=== PATIENT | male | born 1935 | race Caucasian/White ===

== ENCOUNTER 2022-06-13 22:20 | Inpatient (IN) ==
[2022-06-13] MEDS ORDERED: SODIUM CHLORIDE 0.9% 1000ML 1,000 ML IV SCH (23:00)
[2022-06-13 23:45] LABS: Basophils # (auto) 0.03 K/uL (0-0.2); Basophils % (auto) 0.3 %; Hematocrit (blood only) 23.7 % (40.1-51.0); Hemoglobin 7.7 g/dl (14.0-18.0); Immature Granulocytes # (auto) 0.06 K/uL (0.00-0.02); Immature Granulocytes % (auto) 0.6 %; Lymphocytes # (auto) 0.93 K/uL (1.2-3.4); Lymphocytes % (auto) 9.8 %; Mean Corpuscular Hemoglobin 29.1 pg (25.0-34.0); Mean Corpuscular Hgb Conc 32.5 g/dL (32.0-36.0); Mean Corpuscular Volume 89.4 fL (80.0-100.0); Mean Platelet Volume 8.3 fL (9.4-12.4); Monocytes # (auto) 0.77 K/uL (0.24-0.82); Monocytes % (auto) 8.1 %; Neutrophils # (auto) 7.64 K/uL (1.4-6.5); Neutrophils % (auto) 80.2 %; Platelet Count 133 K/uL (130-400); RDW Coefficient of Variation 13.3 % (11.5-14.5); RDW Standard Deviation 43.2 fL (36.4-46.3); Red Blood Count 2.65 M/uL (4.63-6.08); White Blood Count 9.53 K/ul (4.8-10.8)
[2022-06-13] MEDS ORDERED: PANTOPRAZOLE BOLUS/DRIP 1 EACH IV STA (23:52)
[2022-06-13] MEDS ORDERED: PANTOprazole 80 MG in DEXTROSE 5% 100 ML IV ONE (23:52)
[2022-06-13] MEDS ORDERED: SODIUM CHLORIDE 0.9% 250 ML IV PRN (23:52)
[2022-06-14 00:03] LABS: Albumin Globulin Ratio 1.1 (0.9-2); Albumin Level 3.5 gm/dl (3.4-5.0); BUN Creatinine Ratio 30.4 (10-20); Bilirubin,Total 0.2 mg/dl (0.2-1.0); Calcium 8.6 mg/dl (8.5-10.1); Creatinine Clr Calc Pharmacy 68.4 ml/min; Est GFR (African American) 94.9 ml/min; Est GFR (Non-African American) 81.9 ml/min; Globulin 3.2 gm/dl (2.5-4.0); Magnesium 1.4 mg/dl (1.7-2.4); Potassium 3.6 mmol/L (3.5-5.1); Total Protein 6.7 gm/dl (6.0-8.3)
[2022-06-14 00:19] LABS: Thyroid Stimulating Hormone 7.099 uIu/ml (0.300-4.500)
[2022-06-14 00:45] LABS: RBC Morphology Unremarkable
[2022-06-14] MEDS: PANTOprazole 40 MG in DEXTROSE 5% 100 ML IV SCH ×5 (00:52→20:07)
[2022-06-14 01:02] LABS: T4 Free Thyroxine 0.87 ng/dl (0.61-1.60)
--- NOTE | 2022-06-14 01:18 | Emergency Department Note ---
Impression & Plan Acute GI bleeding, Symptomatic anemia, Hyponatremia ED Provider Note NAME: YAN AMEZCUA AGE: 86 SEX: M : 1935 ARRIVES VIA: Ambulance INFORMANT: Patient, ED PROVIDER(S): Raymond Mckenzie MD Chief Complaint: Weakness, dark stool HPI: Patient presents due to concern for weakness and associated dark stool with diarrhea. The patient states that he has had dark stool for the last 4 to 5 days and states that he has 1 episode of dark stool in the evening. The patient was feeling somewhat weak and fatigued last evening and woke up in the morning around 1 AM earlier this morning and called his son who recommended that he try some Pedialyte. The patient states that by 4 AM he felt quite well. Patient thought that maybe the diarrhea was secondary to eating blueberries over the last 10 days. Patient denies any fevers chills or chest pains. The patient was recently transition to supplemental nasal cannula oxygen due to history of pulmonary fibrosis. Patient does follow with Dr. Barney as well as Dr. Huitron for PCP and pulmonology respectively. The patient does take a baby aspirin but no other blood thinners. The patient does admit to his stools being dark but denies any prior history of GI bleed. The patient last had a colonoscopy 10+ years prior and has never had any other concerning issues. Patient is a full code. Patient denies any abdominal pain. Patient has had some occasional nausea but denies any vomiting. ROS: See HPI for pertinent positives and negatives. A total of 10 systems were reviewed and otherwise negative. Past medical history: See below Surgical history: See below Social history: See below Physical Exam: GENERAL: NAD, wearing a mask, non-toxic. Nasal cannula in place EYE EXAM: Normal conjunctiva. PERRL, no anisocoria and EOM's grossly intact w/o pain. NECK: Supple, no nuchal rigidity, no adenopathy, non-tender. No signs of meningismus. FROM of the neck with good chin to chest and neck extension. No stridor. LUNGS: Clear to auscultation. Normal chest wall mechanics. HEART: NSR, no MRG. ABDOMEN: Abdomen soft, non-tender, normo-active bowel sounds, no masses, no rebound or guarding. BACK: No CVA TTP. SKIN: No rashes and no bruising. UPPER EXTREMITIES: Upper extremities are grossly normal. LOWER EXTREMITIES: Grossly normal, no edema. NEURO EXAM: A&O x3, cranial nerves II-XII grossly intact, normal speech, moves all 4 extremities. Differential diagnoses: Infection, dehydration, metabolic abnormality, hypo/hyperglycemia, electrolyte disturbance, anemia, hypoxia, cardiac sources, intracerebral event, toxicologic, neurologic, as well as other pathologies. Course: Patient was seen and evaluated the bedside. Full history physical exam was performed. EKG interpreted by me Sinus with first-degree AV block, rate 62, prolonged WI, wide QRS, left axis deviation, right bundle branch block pattern. Inversions anteriorly and high lateral leads. No prior EKGs for comparison. Imaging Studies: See Below Cardiac monitoring: An order was placed for continuous cardiac monitoring. The monitor shows a rate of 65 with sinus rhythm. MDM: Patient was seen due to concern for weakness and fatigue. The patient had blood work completed. The patient has a normal white count. Hemoglobin is 7 which is an acute change as the patient's last hemoglobin May 12 was 12 and today's 7.7. Patient's platelet count is unremarkable. I did consent the patient for blood he was ordered 2 units. Patient was also ordered Protonix bolus and drip. I did convey to the findings to the patient the patient's family at bedside and they were in agreement with plan of care. The patient was noted to have hyponatremia. Patient's magnesium was slightly low at 1.4. TSH elevated but free T4 normal. Patient was consented for the 2 units. Protonix bolus and drip was also ordered given the patient's dark stool. I did speak with the hospitalist Dr. Bass and the patient was admitted to the medicine service. Patient hemodynamically stable at the time of admission. Critical Care: I have personally spent 47 minutes of critical care time in direct management of this patient. This includes bedside care, interpretation of diagnostic studies, and testing, discussion with consultants, patient, and family members, and other require inpatient management activities. This 47 minutes is in excess of all separately billable procedures. Past Med/Surg History Medical History H/O: HTN (hypertension) HLD (hyperlipidemia) Surgical History No pertinent past surgical history Social History Smoking Status: Never smoker Hx Alcohol Use: No Hx Substance Use: No Feels Safe at Home: Yes Allergies Allergies Allergy/AdvReac Type Severity Reaction Status Date / Time Iodinated Contrast Media Allergy Severe Anaphylaxis Verified 06/14/22 00:42 shrimp flavoor Allergy Severe Anaphylaxis Uncoded 06/14/22 00:42 Home Meds Home Medications Medication Instructions Recorded Confirmed ascorbic acid (vitamin C) 1,000 mg 1 g PO DAILY 06/14/22 06/14/22 tablet (Vitamin C) aspirin 81 mg tablet,delayed 81 mg PO DAILY 06/14/22 06/14/22 release atorvastatin 10 mg tablet 10 mg PO UD 06/14/22 06/14/22 dulaglutide 0.75 mg/0.5 mL 0.75 mg subcut WK 06/14/22 06/14/22 subcutaneous pen injector (Trulicity) hydrochlorothiazide 50 mg tablet 50 mg PO DAILY 06/14/22 06/14/22 losartan 100 mg tablet 100 mg PO DAILY 06/14/22 06/14/22 metformin 500 mg tablet 1,000 mg PO BIDWMEAL 06/14/22 06/14/22 Results & Data (ED) Vital Signs Vital Signs - 24 hr 06/13/22 22:44 06/13/22 23:33 Temperature 37 C Temperature Source Oral Pulse Rate 69 Respiratory Rate 12 Respiratory Depth Normal Blood Pressure 126/66 Blood Pressure Mean 86 Pulse Oximetry 95 96 Oxygen Delivery Method Nasal Cannula Room Air Sepsis Recent Fever Within 48 Hours No Sepsis New/Unexplained Change in Mental Status No Sepsis Action Taken by Nursing No Action Required Home Medications Current Medication List: was personally reviewed by me Laboratory Data Attestation: I reviewed the patient's lab results. Result diagrams: 06/13/22 23:31 06/13/22 23:31 Lab Results 06/13/22 06/13/22 06/13/22 Range/Units 23:31 23:31 23:31 WBC 9.53 (4.8-10.8) K/ul RBC 2.65 L (4.63-6.08) M/uL Hgb 7.7 L (14.0-18.0) g/dl Hct 23.7 L (40.1-51.0) % MCV 89.4 (80.0-100.0) fL MCH 29.1 (25.0-34.0) pg MCHC 32.5 (32.0-36.0) g/dL RDW Std Deviation 43.2 (36.4-46.3) fL RDW Coeff of Jose 13.3 (11.5-14.5) % Plt Count 133 (130-400) K/uL MPV 8.3 L (9.4-12.4) fL Immature Gran % (Auto) 0.6 % Neut % (Auto) 80.2 % Lymph % (Auto) 9.8 % Weld % (Auto) 8.1 % Eos % (Auto) 1.0 % Baso % (Auto) 0.3 % Neut # (Auto) 7.64 H (1.4-6.5) K/uL Lymph # (Auto) 0.93 L (1.2-3.4) K/uL Weld # (Auto) 0.77 (0.24-0.82) K/uL Eos # (Auto) 0.10 (0-0.50) K/uL Baso # (Auto) 0.03 (0-0.2) K/uL Immature Gran # (Auto) 0.06 H (0.00-0.02) K/uL RBC Morphology Unremarkable Sodium 129 L (136-145) mmol/L Potassium 3.6 (3.5-5.1) mmol/L Chloride 88 L (98-107) mmol/L Carbon Dioxide 36 H (21-32) mmol/L Anion Gap 5 (3-11) BUN 24 H (6-23) mg/dl Creatinine 0.79 (0.6-1.4) mg/dl Est Cr Clr Drug Dosing 68.4 ml/min Est GFR ( Amer) 94.9 ml/min Est GFR (Non-Af Amer) 81.9 ml/min BUN/Creatinine Ratio 30.4 H (10-20) Glucose 224 H (70-99(Fasting)) mg/dl Calcium 8.6 (8.5-10.1) mg/dl Magnesium 1.4 L (1.7-2.4) mg/dl Total Bilirubin 0.2 (0.2-1.0) mg/dl AST 17 (13-39) U/L ALT 17 (7-52) U/L Alkaline Phosphatase 41 (34-104) U/L Total Protein 6.7 (6.0-8.3) gm/dl Albumin 3.5 (3.4-5.0) gm/dl Globulin 3.2 (2.5-4.0) gm/dl Albumin/Globulin Ratio 1.1 (0.9-2) TSH 7.099 H (0.300-4.500) uIu/ml Free T4 0.87 (0.61-1.60) ng/dl Crossmatch 06/14/22 Range/Units 00:55 WBC (4.8-10.8) K/ul RBC (4.63-6.08) M/uL Hgb (14.0-18.0) g/dl Hct (40.1-51.0) % MCV (80.0-100.0) fL MCH (25.0-34.0) pg MCHC (32.0-36.0) g/dL RDW Std Deviation (36.4-46.3) fL RDW Coeff of Jose (11.5-14.5) % Plt Count (130-400) K/uL MPV (9.4-12.4) fL Immature Gran % (Auto) % Neut % (Auto) % Lymph % (Auto) % Weld % (Auto) % Eos % (Auto) % Baso % (Auto) % Neut # (Auto) (1.4-6.5) K/uL Lymph # (Auto) (1.2-3.4) K/uL Weld # (Auto) (0.24-0.82) K/uL Eos # (Auto) (0-0.50) K/uL Baso # (Auto) (0-0.2) K/uL Immature Gran # (Auto) (0.00-0.02) K/uL RBC Morphology Sodium (136-145) mmol/L Potassium (3.5-5.1) mmol/L Chloride (98-107) mmol/L Carbon Dioxide (21-32) mmol/L Anion Gap (3-11) BUN (6-23) mg/dl Creatinine (0.6-1.4) mg/dl Est Cr Clr Drug Dosing ml/min Est GFR ( Amer) ml/min Est GFR (Non-Af Amer) ml/min BUN/Creatinine Ratio (10-20) Glucose (70-99(Fasting)) mg/dl Calcium (8.5-10.1) mg/dl Magnesium (1.7-2.4) mg/dl Total Bilirubin (0.2-1.0) mg/dl AST (13-39) U/L ALT (7-52) U/L Alkaline Phosphatase (34-104) U/L Total Protein (6.0-8.3) gm/dl Albumin (3.4-5.0) gm/dl Globulin (2.5-4.0) gm/dl Albumin/Globulin Ratio (0.9-2) TSH (0.300-4.500) uIu/ml Free T4 (0.61-1.60) ng/dl Crossmatch See Detail Administered Medications Pantoprazole Sodium 40 mg/ (Dextrose) 100 mls @ 20 mls/hr IV Q5H CUBA Stop: 07/14/22 00:14 Last Admin: 06/14/22 00:52 Dose: 8 mg/hr, 20 mls/hr Documented By: MAYRA Discontinued Medications Sodium Chloride (Nss 1000ml) 1,000 mls @ 999 mls/hr IV .Q1H1M CUBA Stop: 06/14/22 00:00 Last Admin: 06/13/22 23:33 Dose: 999 mls/hr Documented By: MAYRA Pantoprazole Sodium 80 mg/ (Dextrose) 120 mls @ 400 mls/hr IV NOW ONE Stop: 06/14/22 00:09 Last Admin: 06/14/22 00:38 Dose: 400 mls/hr Documented By: MAYRA Discharge Plan Visit Data Chief Complaint: Diarrhea ED Provider: Raymond Mckenzie Discharge Problem: Acute GI bleeding, Symptomatic anemia, Hyponatremia Patient Disposition: Admitted As Inpatient Prescriptions Prescriptions: No Action metformin 500 mg Tablet 1,000 mg PO BIDWMEAL atorvastatin 10 mg Tablet 10 mg PO UD aspirin [Aspirin Low-Strength] 81 mg Tablet,Delayed Release (Dr/Ec) 81 mg PO DAILY Trulicity 0.75 mg/0.5 mL Pen Injector 0.75 mg SUBCUT WK Rx Instructions: tuesdays hydrochlorothiazide 50 mg Tablet 50 mg PO DAILY losartan 100 mg Tablet 100 mg PO DAILY ascorbic acid (vitamin C) [Vitamin C] 1,000 mg Tablet 1 g PO DAILY Referrals Referrals: Dan[facility] [Primary Care Provider] -
[2022-06-14 02:04] LABS: Appearance Urine Clear (Clear); Bacteria Urine Automated Negative (Negative); Bilirubin Urine Negative (Negative); Blood Urine Negative (Negative); Color Urine Yellow; Glucose Urine UA Trace (Negative); Ketones Urine Negative (Negative); Leukocyte Esterase Urine 1+ (Negative); Nitrite Urine Negative (Negative); Protein Urine Negative (Negative); RBC Urine Automated 0-4 /hpf (0-4); Specific Gravity Urine 1.016 (1.000-1.030); Urobilinogen Urine Negative (Negative)
[2022-06-14] MEDS ORDERED: SODIUM CHLORIDE 0.9% 250 ML IV PRN (02:39)
[2022-06-14] MEDS ORDERED: ACETAMINOPHEN 325 MG TAB PO PRN (02:39)
[2022-06-14] MEDS ORDERED: NITROGLYCERIN SL 0.4 MG/TAB TAB SL PRN (02:39)
[2022-06-14] MEDS ORDERED: DEXTROSE 50% 50 ML SYRINGE IV PRN (03:15)
[2022-06-14] MEDS ORDERED: GLUCOSE 40% GEL 15 GM TUBE PO PRN (03:15)
[2022-06-14] MEDS ORDERED: GLUCAGON FOR INJ 1 MG VIAL IM PRN (03:15)
[2022-06-14] MEDS ORDERED: GLUCOSE 10 TAB/TUBE PO PRN (03:15)
[2022-06-14] MEDS ORDERED: CARBOHYDRATES FOR HYPOGLYCEMIA PO PRN (03:15)
[2022-06-14] MEDS: SODIUM CHLORIDE 0.9% 1000ML 1,000 ML IV SCH ×3 (03:20→20:06)
[2022-06-14] MEDS ORDERED: Nursing to Pharmacy Communication SCH (04:30)
--- NOTE | 2022-06-14 05:27 | History and Physical Report ---
DATE OF ADMISSION: 06/14/2022. CHIEF COMPLAINT: Diarrhea, weakness. HISTORY OF PRESENT ILLNESS: This is an 86-year-old male with past medical history significant for hypertension, diabetes, pulmonary hypertension, interstitial pulmonary fibrosis, chronic respiratory failure, currently on 2 L oxygen, who lives at independent living, brought in by his son because the patient feeling weak and tired and having diarrhea for last 5 days and as he is not getting better. The patient says since last five days he has had significant diarrhea and one week, he is having black stools, which he thought because of blueberries which he was eating . Hemoglobin is 7.7, it was 12.5 last month. The patient was recently started on oxygen for interstitial lung disease and since then his dyspnea on exertion is much improved, cough improved. He had COVID in March of this year and since then he going down as per patient. Currently, resting comfortably, hemodynamically stable, saturating okay. Denies any headache. No blurred visions, no runny nose, has dry mouth. Has chronic cough. He has no difficulty swallowing. Appetite is not that great. Denies any chest pain, no shortness of breath, no nausea, no abdominal pain. Normal bladder movements. No swelling in the legs. ALLERGIES: IODINATED CONTRAST MEDIA, SHRIMP. PAST MEDICAL HISTORY: As mentioned above. PAST SURGICAL HISTORY: Cataract surgeries. MEDICATIONS: The patient is on ascorbic acid 1 gram p.o. daily, aspirin 81 mg p.o. daily, atorvastatin 10 mg p.o. daily, Trulicity 0.75 mg subcutaneous weekly, hydrochlorothiazide 50 mg p.o. daily, losartan 100 mg p.o. daily, metformin 1000 mg p.o. b.i.d. with meals. FAMILY HISTORY: Significant for brother has diabetes. Father has diabetes. Mother has diabetes. SOCIAL HISTORY: Currently living at [facility]. No smoking, no alcohol, no drug use history. REVIEW OF SYSTEMS: As per HPI. Rest of review of systems is negative. PHYSICAL EXAMINATION: GENERAL: The patient is alert and oriented, not in acute distress. VITAL SIGNS: Temperature 37, pulse 69, respiratory rate 19, blood pressure 126/69, oxygen 98% on room air. HEENT: Pupils equal, round and reactive to light. Oral mucosa dry. NECK: No JVD, no neck masses. CARDIOVASCULAR: S1 and S2 heard. Ejection systolic murmur in aortic area heard. Regular rate and rhythm. RESPIRATORY SYSTEM: Normal AP diameter. No accessory muscle use. No wheezing, no crackles. ABDOMEN: Soft, bowel sounds present, nontender, no distention. CENTRAL NERVOUS SYSTEM: Cranial nerves II-XII grossly intact, nonfocal. EXTREMITIES: No edema, no erythema. LABORATORY DATA: WBC 9.5, hemoglobin 7.7, hematocrit 23.7, platelets 133. Sodium 129, potassium 3.6, chloride 88, bicarbonate 36, BUN 24, creatinine 0.7, serum glucose 224, calcium 8.6, magnesium 1.4, total bilirubin 0.2, AST 17, ALT 17, alkaline phosphatase 41. TSH of 7.09, free T4 of 0.8. Urinalysis pending. Stool occult blood positive. SARS-CoV-2 rapid test pending. ASSESSMENT AND PLAN: This is an 86-year-old male who presents with diarrhea and also anemia. 1. Diarrhea, having black stools, possible melena. Hold aspirin, stool hemoccult test is positive. Hemoglobin 7.7, it was 12.5 last month. Blood consent obtained. Transfuse PRBC. Follow the repeat labs. On Protonix drip, keep him n.p.o., IV fluids. Consult GI in the a.m. 2. Hyponatremia. Sodium 129. Getting fluids. Will follow the repeat labs in the a.m. 3. Hypomagnesemia, will replace. 4. Hypertension. Holding his hydrochlorothiazide. Continue losartan. We will monitor the blood pressure. 5. Diabetes: Hold metformin, place insulin sliding scale. Follow the blood sugars, follow HbA1c levels. 6. Hyperlipidemia. Hold statin for now. 7. Interstitial lung disease, chronic respiratory failure, on 2 L oxygen. Follow up with pulmonary. 8. Deep venous thrombosis prophylaxis: Sequential compression devices. DISPOSITION: Closely monitor in the tele floor. Level 1 full code. PT, OT prior to discharge. Social service to help with discharge planning. Job ID: [id number] [facility]
[2022-06-14 07:07] LABS: Basophils # (auto) 0.02 K/uL (0-0.2); Basophils % (auto) 0.2 %; Eosinophils # (auto) 0.08 K/uL (0-0.50); Hematocrit (blood only) 24.8 % (40.1-51.0); Hemoglobin 8.4 g/dl (14.0-18.0); Immature Granulocytes # (auto) 0.04 K/uL (0.00-0.02); Immature Granulocytes % (auto) 0.5 %; Lymphocytes # (auto) 2.25 K/uL (1.2-3.4); Lymphocytes % (auto) 27.3 %; Mean Corpuscular Hemoglobin 29.5 pg (25.0-34.0); Mean Corpuscular Hgb Conc 33.9 g/dL (32.0-36.0); Mean Platelet Volume 8.1 fL (9.4-12.4); Monocytes # (auto) 0.75 K/uL (0.24-0.82); Monocytes % (auto) 9.1 %; Neutrophils # (auto) 5.11 K/uL (1.4-6.5); Neutrophils % (auto) 61.9 %; Platelet Count 128 K/uL (130-400); RDW Coefficient of Variation 13.5 % (11.5-14.5); RDW Standard Deviation 42.6 fL (36.4-46.3); Red Blood Count 2.85 M/uL (4.63-6.08); White Blood Count 8.25 K/ul (4.8-10.8)
[2022-06-14 07:33] LABS: BUN Creatinine Ratio 26.9 (10-20); Calcium 8.2 mg/dl (8.5-10.1); Creatinine Clr Calc Pharmacy 69.2 ml/min; Est GFR (African American) 95.4 ml/min; Est GFR (Non-African American) 82.3 ml/min; Magnesium 1.4 mg/dl (1.7-2.4); Potassium 3.5 mmol/L (3.5-5.1)
[2022-06-14] MEDS: LOSARTAN POTASSIUM 50 MG TAB PO SCH (08:49)
[2022-06-14] MEDS: INSULIN ASPART PER UNIT SC SCH ×4 (09:01→21:29)
[2022-06-14] MEDS: MAGNESIUM SULFATE / D5W 1 GM/100 ML BAG IV SCH ×2 (09:10→12:06)
[2022-06-14] MEDS ORDERED: bisacodyL 5 MG TABEC PO ONE (10:53)
--- NOTE | 2022-06-14 11:40 | Gastrointestinal Consultation ---
Date of Consultation June 14, 2022 Assessment & Plan (1) Symptomatic anemia: (2) Fecal occult blood test positive: Patient is an 86 years old male admitted for symptomatic anemia, diarrhea. Noted to have fecal occult blood positive. Though he denies any ish signs and symptoms of black tarry stools, rectal bleeding. Also denies any open/bleeding wounds, or hematuria. - CL diet today; NPO after midnight - Plan for EGD/Colonoscopy evaluation tomorrow by Dr. Rubio. Bowel prep ordered - Monitor blood ct and transfuse prn - Stool studies to r/o infections given diarrhea - PPI gtt - Avoid NSAIDs Supervising Physician Co-Signing Physician Notes I have personally seen and examined the patient with ROSHNI Rees. Her note reflects my exam and findings. I agree with her impression and plan. Will arrange bidirectional endoscopy. Follow H/H. Lionel Rubio M.D. History of Present Illness Reason for Consultation: Anemia, ? melena Requesting Physician: Dr. Raymundo Mae Attending Physician: Dr. Lionel Rubio History of Present Illness Pt is a 86 yo male w PMHx of hypertension, diabetes, pulmonary hypertension, interstitial pulmonary fibrosis, who presented to the ED with complaints of fatigue, weakness and diarrhea for the last 4 days. Son noticed that patient's energy level has gone down in the last few weeks. Decreased level of activity even though he previously was active and a marathon runner. He did have COVID in March of this year. Patient denies any fevers, chills, chest pain or shortness of breath. However he has noticed that the last 4 days or so his stools have been loose and darker in color which he attributed to increased intake of blueberries. He denies stools being black or tarry in appearance nor having any rectal bleeding. Upon evaluation it was noted that he has anemia, hemoglobin currently 7, it was previously 12 few months ago. He was given 2 units of PRBC transfusion overnight, with good response on blood count. No significant rise in BUN. FOBT was positive. He also denies and bleeding wounds or hematuria. He denies any current anticoagulant or NSAID use is. Takes baby aspirin daily. Denies personal or family history of GI malignancies, celiac disease or IBD. Only abdominal surgery she has had is an cholecystectomy States that he has had screening colonoscopies in the past, last one done when he was around 76 without any significant findings. Allergies Allergy/AdvReac Type Severity Reaction Status Date / Time Iodinated Contrast Media Allergy Severe Anaphylaxis Verified 06/14/22 00:42 shrimp Allergy Severe Anaphylaxis Verified 06/14/22 02:43 Home Medications Medication Instructions Recorded Confirmed Type ascorbic acid (vitamin C) 1,000 mg 1 g PO DAILY 06/14/22 06/14/22 History tablet (Vitamin C) aspirin 81 mg tablet,delayed 81 mg PO DAILY 06/14/22 06/14/22 History release atorvastatin 10 mg tablet 10 mg PO UD 06/14/22 06/14/22 History dulaglutide 0.75 mg/0.5 mL 0.75 mg subcut WK 06/14/22 06/14/22 History subcutaneous pen injector (Trulicity) hydrochlorothiazide 50 mg tablet 50 mg PO DAILY 06/14/22 06/14/22 History losartan 100 mg tablet 100 mg PO DAILY 06/14/22 06/14/22 History metformin 500 mg tablet 1,000 mg PO BIDWMEAL 06/14/22 06/14/22 History Patient History Medical History H/O: HTN (hypertension) HLD (hyperlipidemia) Surgical History No pertinent past surgical history Social History Smoking Status: Never smoker Hx Alcohol Use: No Hx Substance Use: No Preferred Language: Hungarian Communication Ability: Effective Tobacco Prizer Required: No Feels Safe at Home: Yes Safety Concerns: Feels Safe At This Time Assistive Devices: Oxygen - Continuous Review of Systems Review of Systems: All systems reviewed & are unremarkable except as noted in HPI & below Physical Exam Constitutional: WD/WN, vitals as above well groomed, cooperative and comfortable Eyes: PERRL, conjunctivae normal, anicteric sclerae ENMT: external ear and nose normal, oropharynx normal Respiratory: normal respiratory effort, lungs clear to auscultation Cardiovascular: RRR, no murmur, no edema Gastrointestinal (Abdomen): normal bowel sounds, soft, nontender, no hepatosplenomegaly Skin: no rashes, warm and dry no jaundice Psychiatric: A+Ox3, euthymic affect Lymphatic: no lymphedema Results & Data ([facility]) Vital Signs (Past 12 Hours) Vital Signs Temp Pulse Pulse Resp BP BP Pulse Ox 06/14/22 09:10 36.6 C 53 L 16 108/56 L 98 06/14/22 08:28 36.6 C 68 16 108/54 L 98 06/14/22 07:28 36.6 C 71 18 119/68 97 06/14/22 06:58 36.7 C 51 L 16 103/60 100 06/14/22 06:43 36.7 C 68 16 105/59 L 100 06/14/22 06:41 36.7 C 61 16 121/57 L 100 06/14/22 06:18 36.7 C 52 L 16 116/57 L 99 06/14/22 06:26 36.7 C 52 L 16 116/57 L 98 06/14/22 05:09 36.7 C 74 16 125/64 96 06/14/22 05:02 36.6 C 55 L 16 116/62 99 06/14/22 04:09 36.7 C 52 L 16 110/55 L 99 06/14/22 03:40 36.7 C 55 L 16 105/55 L 98 06/14/22 03:24 36.7 C 59 L 19 111/57 L 98 06/14/22 03:22 36.7 C 60 19 111/59 L 98 06/14/22 03:00 36.8 C 56 L 13 119/58 L 98 06/14/22 02:39 06/14/22 02:39 36.8 C 60 18 128/78 98 06/14/22 00:14 69 19 126/69 98 Pulse Ox O2 Del Method O2 Del Method O2 Flow Rate 06/14/22 09:10 4 06/14/22 08:28 4 06/14/22 07:28 2 06/14/22 06:58 2 06/14/22 06:43 2 06/14/22 06:41 2 06/14/22 06:18 2 06/14/22 06:26 2 06/14/22 05:09 2 06/14/22 05:02 2 06/14/22 04:09 2 06/14/22 03:40 2 06/14/22 03:24 06/14/22 03:22 06/14/22 03:00 06/14/22 02:39 98 Room Air 06/14/22 02:39 Room Air 06/14/22 00:14 Room Air
[2022-06-14] MEDS ORDERED: MAGNESIUM SULFATE 1GM / D5W BAG IV ONE (12:02)
[2022-06-14 13:04] LABS: Hematocrit (blood only) 27.9 % (40.1-51.0); Hemoglobin 9.4 g/dl (14.0-18.0)
[2022-06-14] MEDS ORDERED: POLYETHYLENE (MIRALAX) 17 GM PACK PO ONE ×2 (17:00→21:00)
--- NOTE | 2022-06-14 18:05 | Communication Note ---
Date of Service: June 14, 2022 The patient was seen and examined in emergency room. He remains hemodynamically stable without any significant symptoms. Full progress note will be done tomorrow. Dr Shandra Mae
[2022-06-14 19:08] LABS: Hemoglobin 9.2 g/dl (14.0-18.0)
[2022-06-14 19:50] LABS: Adenovirus F 40/41 PCR Not Detected (NotDetected); Astrovirus PCR Not Detected (NotDetected); Campylobacter PCR Not Detected (NotDetected); Clostridium diff Toxin A/B PCR Not Detected (NotDetected); Cryptosporidium PCR Not Detected (NotDetected); Cyclospora cayetanensis PCR Not Detected (NotDetected); Entamoeba histolytica PCR Not Detected (NotDetected); Enteroaggregative E.coli(EAEC) Not Detected (NotDetected); Enteropathogenic E.coli (EPEC) Not Detected (NotDetected); Enterotoxigenic E.coli (ETEC) Not Detected (NotDetected); Giardia lamblia PCR Not Detected (NotDetected); Norovirus GI/GII PCR Not Detected (NotDetected); Plesiomonas shigelloides PCR Not Detected (NotDetected); Rotavirus A PCR Not Detected (NotDetected); Salmonella PCR Not Detected (NotDetected); Sapovirus PCR Not Detected (NotDetected); Shiga-like Toxin E.coli (STEC) Not Detected (NotDetected); Shigella/Enteroinvasive E.coli Not Detected (NotDetected); Vibrio cholerae PCR Not Detected (NotDetected); Vibrio species PCR Not Detected (NotDetected); Yersinia enterocolitica PCR Not Detected (NotDetected)
[2022-06-15] MEDS: PANTOprazole 40 MG in DEXTROSE 5% 100 ML IV SCH ×5 (00:56→21:41)
[2022-06-15] MEDS: SODIUM CHLORIDE 0.9% 1000ML 1,000 ML IV SCH ×3 (03:36→19:52)
--- NOTE | 2022-06-15 05:54 | Electrocardiogram Report ---
Test Reason : Blood Pressure : / mmHG Vent. Rate : 062 BPM Atrial Rate : 062 BPM P-R Int : 228 ms QRS Dur : 162 ms QT Int : 446 ms P-R-T Axes : 047 002 -27 degrees QTc Int : 452 ms Sinus rhythm with 1st degree A-V block with Fusion complexes Right bundle branch block T wave abnormality, consider inferolateral ischemia Abnormal ECG No previous ECGs available Confirmed by Callum Funes ([id number]) on 06/15/2022 5:53:51 AM Referred By: REFERRED SELF Confirmed By:Callum Funes
[2022-06-15 07:48] LABS: Basophils # (auto) 0.03 K/uL (0-0.2); Basophils % (auto) 0.4 %; Eosinophils # (auto) 0.47 K/uL (0-0.50); Eosinophils % (auto) 6.6 %; Hematocrit (blood only) 28.2 % (40.1-51.0); Hemoglobin 9.1 g/dl (14.0-18.0); Immature Granulocytes # (auto) 0.03 K/uL (0.00-0.02); Immature Granulocytes % (auto) 0.4 %; Lymphocytes # (auto) 2.19 K/uL (1.2-3.4); Lymphocytes % (auto) 30.5 %; Mean Corpuscular Hemoglobin 28.5 pg (25.0-34.0); Mean Corpuscular Hgb Conc 32.3 g/dL (32.0-36.0); Mean Corpuscular Volume 88.4 fL (80.0-100.0); Mean Platelet Volume 8.2 fL (9.4-12.4); Monocytes # (auto) 0.73 K/uL (0.24-0.82); Monocytes % (auto) 10.2 %; Neutrophils # (auto) 3.72 K/uL (1.4-6.5); Neutrophils % (auto) 51.9 %; Platelet Count 131 K/uL (130-400); RDW Coefficient of Variation 14.6 % (11.5-14.5); RDW Standard Deviation 46.6 fL (36.4-46.3); Red Blood Count 3.19 M/uL (4.63-6.08); White Blood Count 7.17 K/ul (4.8-10.8)
[2022-06-15] MEDS: LOSARTAN POTASSIUM 50 MG TAB PO SCH (08:10)
[2022-06-15 08:31] LABS: BUN Creatinine Ratio 15.3 (10-20); Est GFR (African American) 98.6 ml/min; Est GFR (Non-African American) 85.1 ml/min; Potassium 3.4 mmol/L (3.5-5.1)
[2022-06-15] MEDS ORDERED: Nursing to Pharmacy Communication SCH ×2 (09:00→12:30)
--- NOTE | 2022-06-15 09:17 | Anesthesiology Consultation ---
Date of Service June 15, 2022 Assessment & Plan (1) Encounter for pre-operative examination: History Surgery Operation Date: 06/15/22 16:30 Proposed Procedures p Colonoscopy EGD Dr Ramiro Rubio MD Height/Weight Height: 5 ft 9 in Weight: 76.6 kg Allergies Allergy/AdvReac Type Severity Reaction Status Date / Time Iodinated Contrast Media Allergy Severe Anaphylaxis Verified 06/14/22 00:42 shrimp Allergy Severe Anaphylaxis Verified 06/14/22 02:43 Medications Home Medications Medication Instructions Recorded Confirmed Last Taken ascorbic acid (vitamin C) 1,000 mg 1 g PO DAILY 06/14/22 06/14/22 Unknown tablet (Vitamin C) aspirin 81 mg tablet,delayed 81 mg PO DAILY 06/14/22 06/14/22 Unknown release atorvastatin 10 mg tablet 10 mg PO UD 06/14/22 06/14/22 Unknown dulaglutide 0.75 mg/0.5 mL 0.75 mg subcut WK 06/14/22 06/14/22 Unknown subcutaneous pen injector (Trulicity) hydrochlorothiazide 50 mg tablet 50 mg PO DAILY 06/14/22 06/14/22 Unknown losartan 100 mg tablet 100 mg PO DAILY 06/14/22 06/14/22 Unknown metformin 500 mg tablet 1,000 mg PO BIDWMEAL 06/14/22 06/14/22 Unknown Active Medications Generic Name Dose Route Start Last Admin Trade Name Freq PRN Reason Stop Dose Admin Pantoprazole Sodium 40 mg/ 100 mls @ 20 mls/hr 06/14/22 00:15 06/15/22 05:38 Dextrose IV 07/14/22 00:14 8 mg/hr Q5H CUBA 20 mls/hr Administration 8 MG/HR Sodium Chloride 1,000 mls @ 125 mls/hr 06/14/22 02:39 06/15/22 03:36 Nss 1000ml IV 07/14/22 02:38 125 mls/hr .Q8H CUBA Administration Losartan Potassium 100 mg 06/14/22 09:00 06/15/22 08:10 Losartan Potassium 50 Mg Tab PO 07/14/22 08:59 Not Given DAILY CUBA Past Medical History Medical History Acute GI bleeding H/O: HTN (hypertension) HLD (hyperlipidemia) Hyponatremia Symptomatic anemia chronic respiratory failure on 2Lnc Pulmonary fibrosis Pulmonary hypertension Past Surgical History Surgical History No pertinent past surgical history Social History Smoking Status: Never smoker Hx Alcohol Use: No Hx Substance Use: No Physical Exam Vital Signs Last Vital Signs Temp 36.7 C 06/15/22 07:30 Pulse 57 L 06/15/22 07:30 Resp 18 06/15/22 07:30 BP 116/56 L 06/15/22 07:30 Pulse Ox 97 06/15/22 07:30 O2 Del Method 06/15/22 07:30 O2 Flow Rate 2 06/15/22 07:30 Testing Laboratory Results 06/15/22 07:36 06/15/22 07:36 Urine Color Yellow 06/14/22 01:50 Urine Appearance Clear (Clear) 06/14/22 01:50 Urine pH 7.0 (4.5-7.5) 06/14/22 01:50 Ur Specific [place] 1.016 (1.000-1.030) 06/14/22 01:50 Urine Protein Negative (Negative) 06/14/22 01:50 Urine Glucose (UA) Trace (Negative) H 06/14/22 01:50 Urine Ketones Negative (Negative) 06/14/22 01:50 Urine Nitrite Negative (Negative) 06/14/22 01:50 Ur Leukocyte Esterase 1+ (Negative) H 06/14/22 01:50 Urine WBC (Auto) 1-5 /hpf (0-5) 06/14/22 01:50 Urine RBC (Auto) 0-4 /hpf (0-4) 06/14/22 01:50 U Hyaline Cast (Auto) 1-5 /lpf (0-5) 06/14/22 01:50 U Epithel Cells (Auto) 5-10 /lpf (0-5) H 06/14/22 01:50 Urine Bacteria (Auto) Negative (Negative) 06/14/22 01:50 Blood Type A Positive 06/14/22 00:55 Antibody Screen NEGATIVE 06/14/22 00:55 06/14/22 21:12 POC Glucose 125 H
--- NOTE | 2022-06-15 10:04 | History & Physical Report ---
Date of Service June 15, 2022 Assessment & Plan (1) Anemia: Plan: stable for EGD/Colonoscopy Admission and Anticipated Discharge Date Admission Date: June 14, 2022 History of Present Illness Chief Complaint: anemia Primary Care Provider: [facility] Pt with anemia for EGD/Colonoscopy Allergies Allergy/AdvReac Type Severity Reaction Status Date / Time Iodinated Contrast Media Allergy Severe Anaphylaxis Verified 06/14/22 00:42 shrimp Allergy Severe Anaphylaxis Verified 06/14/22 02:43 Home Medications Medication Instructions Recorded Confirmed Type ascorbic acid (vitamin C) 1,000 mg 1 g PO DAILY 06/14/22 06/14/22 History tablet (Vitamin C) aspirin 81 mg tablet,delayed 81 mg PO DAILY 06/14/22 06/14/22 History release atorvastatin 10 mg tablet 10 mg PO UD 06/14/22 06/14/22 History dulaglutide 0.75 mg/0.5 mL 0.75 mg subcut WK 06/14/22 06/14/22 History subcutaneous pen injector (Trulicity) hydrochlorothiazide 50 mg tablet 50 mg PO DAILY 06/14/22 06/14/22 History losartan 100 mg tablet 100 mg PO DAILY 06/14/22 06/14/22 History metformin 500 mg tablet 1,000 mg PO BIDWMEAL 06/14/22 06/14/22 History Past Med/Surg History Medical History Acute GI bleeding H/O: HTN (hypertension) HLD (hyperlipidemia) Hyponatremia Symptomatic anemia Surgical History No pertinent past surgical history Social History Smoking Status: Never smoker Hx Alcohol Use: No Hx Substance Use: No Preferred Language: Salvadorean Communication Ability: Effective Associate Professor Of History Required: No Feels Safe at Home: Yes Safety Concerns: Feels Safe At This Time Assistive Devices: Oxygen - Continuous Physical Exam Constitutional: WD/WN, vitals as above Respiratory: normal respiratory effort, lungs clear to auscultation Cardiovascular: RRR, no murmur, no edema Gastrointestinal (Abdomen): normal bowel sounds, soft, nontender, no hepatosplenomegaly Results & Data ([facility]) Vital Signs (Past 12 Hours) Vital Signs Temp Pulse Pulse Resp BP Pulse Ox Pulse Ox 06/15/22 07:30 36.7 C 57 L 18 116/56 L 97 06/15/22 07:00 50 L 06/15/22 02:39 99 06/15/22 02:35 37 C 49 L 18 108/60 94 06/14/22 22:30 53 L 06/14/22 22:32 35 C L 55 L 18 113/63 97 O2 Del Method O2 Del Method O2 Flow Rate O2 Flow Rate 06/15/22 07:30 Nasal Cannula 2 06/15/22 07:00 06/15/22 02:39 Nasal Cannula 2 06/15/22 02:35 Nasal Cannula 2 06/14/22 22:30 06/14/22 22:32 Nasal Cannula 2 Code Status & VTE Plan VTE Prophylaxis Plan VTE Prophylaxis will be ordered: Yes
--- NOTE | 2022-06-15 11:42 | GI REPORT ---
Patient Name: Gaudencio Lazcano Procedure Date: 06/15/2022 10:16 AM Date of : 1935 Admit Type: Inpatient Age: 86 Gender: Male Attending MD: Lionel Rubio MD Procedure: Upper GI endoscopy Providers: Lionel Rubio MD Referring MD: Raymundo Mae Indications: Iron deficiency anemia Medicines: See the Anesthesia note for documentation of the administered medications Complications: No immediate complications. Estimated Blood Loss: Estimated blood loss: none. Procedure: Pre-Anesthesia Assessment: - Prior to the procedure, a History and Physical was performed, and patient medications, allergies and sensitivities were reviewed. The patient's tolerance of previous anesthesia was reviewed. - The risks and benefits of the procedure and the sedation options and risks were discussed with the patient. All questions were answered and informed consent was obtained. - Patient identification and proposed procedure were verified prior to the procedure by the physician and the nurse. The procedure was verified in the pre-procedure area. - Pre-procedure physical examination revealed no contraindications to sedation. - After reviewing the risks and benefits, the patient was deemed in satisfactory condition to undergo the procedure. After obtaining informed consent, the endoscope was passed under direct vision. Throughout the procedure, the patient's blood pressure, pulse, and oxygen saturations were monitored continuously. The Endoscope was introduced through the mouth, and advanced to the third part of duodenum. The upper GI endoscopy was accomplished without difficulty. The patient tolerated the procedure well. Findings: The esophagus was normal. The stomach was normal. The examined duodenum was normal. The cardia and gastric fundus were normal on retroflexion. Impression: - Normal esophagus. - Normal stomach. - Normal examined duodenum. - No specimens collected. Recommendation: - Perform a colonoscopy today. Lionel Rubio M.D. Lionel Rubio MD 06/15/2022 11:42:05 AM This report has been signed electronically. Note Initiated On: 06/15/2022 10:16 AM Number of Addenda: 0 I attest to the content of the Intraoperative Record and orders documented therein, exceptions below {[id number]}
--- NOTE | 2022-06-15 11:44 | GI REPORT ---
Patient Name: Gaudencio Lazcano Procedure Date: 06/15/2022 10:14 AM Date of : 1935 Admit Type: Inpatient Age: 86 Gender: Male Attending MD: Lionel Rubio MD Procedure: Colonoscopy Providers: Lionel Rubio MD Referring MD: Raymundo Mae Indications: Iron deficiency anemia Medicines: See the Anesthesia note for documentation of the administered medications Complications: No immediate complications. Estimated Blood Loss: Estimated blood loss: none. Procedure: Pre-Anesthesia Assessment: - See the other procedure note for documentation of the pre-procedure assessment. After I obtained informed consent, the scope was passed under direct vision. Throughout the procedure, the patient's blood pressure, pulse, and oxygen saturations were monitored continuously. The Colonoscope was introduced through the anus and advanced to the cecum, identified by appendiceal orifice and ileocecal valve. The colonoscopy was performed without difficulty. The patient tolerated the procedure well. The quality of the bowel preparation was good. Findings: Hemorrhoids were found on perianal exam. Many small-mouthed diverticula were found in the sigmoid colon. The exam was otherwise without abnormality on direct and retroflexion views. Impression: - Hemorrhoids found on perianal exam. - Diverticulosis in the sigmoid colon. - The examination was otherwise normal on direct and retroflexion views. - No specimens collected. Recommendation: - Return patient to hospital [facility] for ongoing care. Lionel Rubio M.D. Lionel Rubio MD 06/15/2022 11:43:39 AM This report has been signed electronically. Note Initiated On: 06/15/2022 10:14 AM Number of Addenda: 0 I attest to the content of the Intraoperative Record and orders documented therein, exceptions below {[id number]}
[2022-06-15] MEDS ORDERED: INSULIN ASPART PER UNIT SC SCH (12:00)
[2022-06-15] MEDS ORDERED: POTASSIUM CHLORIDE CRTAB 20 MEQ TABCR PO STA ×2 (12:10→14:44)
[2022-06-15] MEDS: INSULIN ASPART PER UNIT SC SCH ×3 (12:20→20:57)
--- NOTE | 2022-06-15 12:34 | Anesthesiology Progress Note ---
Date of Service June 15, 2022 Anesthesia Post Procedure Vital Signs Vital Signs: Temp Pulse Pulse Resp BP Pulse Ox Pulse Ox 06/15/22 11:54 36.7 C 49 L 18 129/71 95 06/15/22 11:23 52 L 16 118/57 L 97 06/15/22 11:09 54 L 16 126/71 93 06/15/22 10:54 66 12 113/62 94 06/15/22 09:59 36.8 C 59 L 18 144/69 H 98 06/15/22 07:30 36.7 C 57 L 18 116/56 L 97 06/15/22 07:00 50 L 06/15/22 02:39 99 06/15/22 02:35 37 C 49 L 18 108/60 94 06/14/22 19:37 54 L 06/14/22 22:30 53 L 06/14/22 20:00 06/14/22 22:32 35 C L 55 L 18 113/63 97 06/14/22 19:35 36.5 C 56 L 18 130/68 98 06/14/22 13:33 60 16 131/66 98 O2 Del Method O2 Del Method O2 Flow Rate O2 Flow Rate 06/15/22 11:54 Nasal Cannula 2 06/15/22 11:23 Nasal Cannula 2 06/15/22 11:09 Nasal Cannula 2 06/15/22 10:54 Nasal Cannula 2 06/15/22 09:59 Nasal Cannula 2 06/15/22 07:30 Nasal Cannula 2 06/15/22 07:00 06/15/22 02:39 Nasal Cannula 2 06/15/22 02:35 Nasal Cannula 2 06/14/22 19:37 06/14/22 22:30 06/14/22 20:00 Nasal Cannula 2 06/14/22 22:32 Nasal Cannula 2 06/14/22 19:35 Nasal Cannula 4 06/14/22 13:33 Nasal Cannula 4 Transfer of Care Handoff Completed per policy Notes Mental Status: alert / awake / arousable and participated in evaluation Patient Amnestic to Procedure: Yes Nausea / Vomiting: adequately controlled Pain: adequately controlled Airway Patency, RR, SpO2: stable & adequate BP & HR: stable & adequate Hydration State: stable & adequate Anesthetic Complications: no major complications apparent
--- NOTE | 2022-06-15 14:51 | Hospitalist Progress Note ---
Date of Service June 15, 2022 Assessment & Plan (1) Acute GI bleeding: Plan: Complains to have diarrhea with weakness and dizziness with ambulation Noted to have black tarry stool as well-heme positive Denies any abdominal pain Status post negative EGD and negative colonoscopy Minimal findings of hemorrhoid Bleeding could be from small intestine We will observe overnight and likely discharge tomorrow We will get PT and OT evaluation before discharge (2) Acute blood loss anemia: Plan: Hemoglobin dropped to 7.7 from 12 Received 2 units of blood transfusion Hemoglobin remained more than 9 following blood transfusion No acute bleeding area noted on EGD and colonoscopy Will monitor overnight and likely discharge tomorrow (3) Electrolyte imbalance: Plan: Supplemented and will monitor (4) Hypertension: Plan: Blood pressure is controlled Continue current medications (5) Interstitial lung disease: Plan: Has interstitial lung disease and is on 2 L of nasal cannula oxygen at home Recently came under [employer] system and was seen by glue sprayer Was advised to keep regular appointment with the glue sprayer Plan DVT prophylaxis SCDs CODE STATUS Full Son needs to be informed and updated prior to discharge Admission and Anticipated Discharge Date Admission Date: June 14, 2022 Subjective 06/15/2022 The patient was seen and examined in telemetry unit He denies any symptoms and the melena and diarrhea are resolved He has had EGD and colonoscopy Has been started on oral medications and diet Review of Systems Review of Systems: All systems reviewed and are unremarkable except as noted below Physical Exam Physical Exam: Lying in bed comfortably Constitutional: well developed, well nourished and average body habitus; not ill appearing Eyes: Watering from the eyes with some itchiness and some redness from rubbing. No visual symptoms ENMT: external ear and nose normal, oropharynx normal Neck: trachea midline, no thyromegaly Respiratory: no respiratory distress Auscultation: + diminished lung sounds and + crackles (Bibasilar crackles) Cardiovascular: Rate/Rhythm: regular rate, regular rhythm and + bradycardic Heart Sounds: normal S1 and normal S2; no murmur Extremities: no edema Gastrointestinal (Abdomen): Inspection/Auscultation: normal bowel sounds; abdomen not distended Percussion/Palpation: abdomen soft; abdomen nontender Musculoskeletal: No acute arthritis in any joint Neurologic: Alert, awake and oriented x3. No focal sensory or no motor deficit appreciated Lymphatic: no cervical or axillary lymphadenopathy Results & Data Results & Data ([facility]) Vital Signs (Past 12 Hours) Vital Signs Temp Pulse Pulse Resp BP Pulse Ox O2 Del Method 06/15/22 11:54 36.7 C 49 L 18 129/71 95 Nasal Cannula 06/15/22 11:23 52 L 16 118/57 L 97 Nasal Cannula 06/15/22 11:09 54 L 16 126/71 93 Nasal Cannula 06/15/22 10:54 66 12 113/62 94 Nasal Cannula 06/15/22 09:59 36.8 C 59 L 18 144/69 H 98 Nasal Cannula 06/15/22 07:30 36.7 C 57 L 18 116/56 L 97 Nasal Cannula 06/15/22 07:00 50 L O2 Flow Rate 06/15/22 11:54 2 06/15/22 11:23 2 06/15/22 11:09 2 06/15/22 10:54 2 06/15/22 09:59 2 06/15/22 07:30 2 06/15/22 07:00 Laboratory Results Short CBC 06/14/22 06/15/22 Range/Units 18:47 07:36 WBC 7.17 (4.8-10.8) K/ul Hgb 9.2 L 9.1 L (14.0-18.0) g/dl Hct 27.0 L 28.2 L (40.1-51.0) % Plt Count 131 (130-400) K/uL BMP 06/15/22 07:36 Sodium 135 L Potassium 3.4 L Chloride 100 Carbon Dioxide 33 H BUN 11 Creatinine 0.72 Glucose 126 H Calcium 8.0 L Medications Administered Current Inpatient Medications Acetaminophen (Acetaminophen 325 Mg Tab) 650 mg PO Q4H PRN PRN Reason: Pain or Fever Stop: 07/14/22 02:38 Dextrose (Dextrose 50% 50 Ml Syringe) 25 - 50 ml IV UD PRN; Protocol PRN Reason: Hypoglycemia Protocol Stop: 07/14/22 03:14 Glucagon (Glucagon For Inj 1 Mg Vial) 1 mg IM UD PRN; Protocol PRN Reason: Hypoglycemia Protocol Stop: 07/14/22 03:14 Glucose (Glucose 40% Gel 15 Gm Tube) 15 - 30 gm PO UD PRN; Protocol PRN Reason: Hypoglycemia Protocol Stop: 07/14/22 03:14 Glucose (Glucose 10 Tab/Tube) 4 - 8 tab PO UD PRN; Protocol PRN Reason: Hypoglycemia Protocol Stop: 07/14/22 03:14 Pantoprazole Sodium 40 mg/ (Dextrose) 100 mls @ 20 mls/hr IV Q5H [facility] Stop: 07/14/22 00:14 Last Admin: 06/15/22 14:20 Dose: 8 mg/hr, 20 mls/hr Sodium Chloride (Nss 1000ml) 1,000 mls @ 125 mls/hr IV .Q8H [facility] Stop: 07/14/22 02:38 Last Admin: 06/15/22 03:36 Dose: 125 mls/hr Insulin Aspart (Insulin Aspart Per Unit) 0 units SC ACHS [facility] Stop: 07/15/22 11:59 Losartan Potassium (Losartan Potassium 50 Mg Tab) 100 mg PO DAILY [facility] Stop: 07/14/22 08:59 Last Admin: 06/15/22 08:10 Dose: Not Given Miscellaneous (Carbohydrates For Hypoglycemia ) 15 - 30 gm PO UD PRN PRN Reason: Hypoglycemia Treatment Stop: 07/14/22 03:14 Nitroglycerin (Nitroglycerin Sl 0.4 Mg/Tab Tab) 0.4 mg SL Q5M PRN PRN Reason: Chest Pain Stop: 07/14/22 02:38
[2022-06-16] MEDS: PANTOprazole 40 MG in DEXTROSE 5% 100 ML IV SCH ×2 (03:22→08:33)
--- NOTE | 2022-06-16 06:49 | XRay Report ---
XR chest 1V portable HISTORY: 86 years-old Male crackles acute shortness of breath COMPARISON: None TECHNIQUE: AP view of the chest FINDINGS: Cardiac silhouette is enlarged. Reticular interstitial opacities are noted without pneumothorax or la rge pleural effusion. Pulmonary vascular congestion. Mild right hemidiaphragmatic elevation. Degenera tive changes of the shoulders and spine. IMPRESSION: 1. Cardiomegaly with pulmonary vascular congestion. 2. Peripheral predominant reticular interstitial opacities may represent fibrosis versus a nonspecifi c infectious or inflammatory pneumonitis. ACT 112: Negative or not required by law. The above report was generated using voice recognition software. It may contain grammatical, syntax o r spelling errors. Electronically signed by: Harsha Gomez M.D. 06/16/2022 6:47 AM
[2022-06-16] MEDS: INSULIN ASPART PER UNIT SC SCH ×4 (07:36→21:13)
[2022-06-16] MEDS: LOSARTAN POTASSIUM 50 MG TAB PO SCH (08:37)
[2022-06-16] MEDS ORDERED: POTASSIUM CHLORIDE CRTAB 20 MEQ TABCR PO ONE (09:01)
[2022-06-16] MEDS: hydroCHLOROthiazide 25 MG TAB PO SCH (12:06)
--- NOTE | 2022-06-16 16:51 | Hospitalist Progress Note ---
Date of Service June 16, 2022 Assessment & Plan (1) Acute GI bleeding: Plan: Likely Multifactorial: Small intestine, diverticular, hemorrhoidal S/P EGD: Normal esophagus, normal stomach, normal examination of duodenum S/P Colonoscopy:Hemorrhoids found on perianal exam, diverticulosis in sigmoid colon Aspirin Held Appreciate GI help IV Protonix changed to Protonix 40mg daily May need Further eval like capsule endoscopy as out patient Advised to follow up with GI as outpatient (2) Acute blood loss anemia: Plan: S/P 2 units PRBCs Monitor Hb (3) Electrolyte imbalance: Plan: Replete as needed (4) Hypertension: Plan: Continue current medications (5) Interstitial lung disease: Plan: H/O Interstitial lung disease and is on 2 L of nasal cannula oxygen at home Recently came under [employer] system and was seen by gyroscope repairer Follow up with gyroscope repairer as outpatient Plan DVT prophylaxis SCDs CODE STATUS Full Code Disposition SNF likely tomorrow Admission and Anticipated Discharge Date Admission Date: June 14, 2022 Subjective Patient is seen and examined at bedside States feeling tired and exhausted after having PT earlier today No recurrence of bleeding Discussed with patient's son at bedside Denies any chest pain, shortness of breath, dizziness, nausea, abdominal pain Review of Systems Review of Systems: All systems reviewed & are unremarkable except as noted in Subjective Physical Exam Physical Exam: Physical Exam: Vitals signs as noted above General Appearance:Moderately built and nourished, no apparent distress Head: normocephalic, Atraumatic Eyes: normal inspection, EOMI Neck: supple, Trachea midline Respiratory/Chest: Decreased breath sounds, B/L scattered crackles, No accessory muscle use Cardiovascular: S1, S2, No murmur Abdomen/GI:Soft, Non tender, Bowel sounds present Extremities/Musculoskeletal:normal inspection, no edema Neurologic/Psych:AAOX3, grossly no focal neurological deficits Skin: normal color, warm Results & Data Results & Data ([facility]) Vital Signs (Past 12 Hours) Vital Signs Temp Pulse Pulse Resp BP Pulse Ox O2 Del Method 06/16/22 16:35 36.8 C 57 L 18 140/73 96 Nasal Cannula 06/16/22 15:00 49 L 06/16/22 14:17 93 06/16/22 11:21 36.8 C 58 L 18 120/70 96 Nasal Cannula 06/16/22 10:46 Nasal Cannula 06/16/22 08:37 69 134/69 06/16/22 07:35 37.1 C 69 18 150/72 H 96 Nasal Cannula 06/16/22 07:00 56 L O2 Flow Rate 06/16/22 16:35 2 06/16/22 15:00 06/16/22 14:17 06/16/22 11:21 2 06/16/22 10:46 2 06/16/22 08:37 06/16/22 07:35 2 06/16/22 07:00
[2022-06-17] MEDS ORDERED: PANTOprazole 40 MG TAB PO SCH (09:00)
[2022-06-17 09:02] LABS: Hematocrit (blood only) 33.1 % (40.1-51.0); Hemoglobin 10.9 g/dl (14.0-18.0)
[2022-06-17 09:23] LABS: BUN Creatinine Ratio 12.1 (10-20); Calcium 9.3 mg/dl (8.5-10.1); Creatinine Clr Calc Pharmacy 54.6 ml/min; Est GFR (African American) 80.2 ml/min; Est GFR (Non-African American) 69.2 ml/min; Potassium 3.7 mmol/L (3.5-5.1)
[2022-06-17] MEDS: LOSARTAN POTASSIUM 50 MG TAB PO SCH (09:27)
[2022-06-17] MEDS: hydroCHLOROthiazide 25 MG TAB PO SCH (09:28)
[2022-06-17] MEDS: INSULIN ASPART PER UNIT SC SCH ×2 (10:01→12:53)
--- NOTE | 2022-06-17 12:52 | Hospitalist Progress Note ---
Date of Service June 17, 2022 Assessment & Plan (1) Acute GI bleeding: Plan: Likely Multifactorial: Small intestine, diverticular, hemorrhoidal S/P EGD: Normal esophagus, normal stomach, normal examination of duodenum S/P Colonoscopy:Hemorrhoids found on perianal exam, diverticulosis in sigmoid colon Aspirin Held Appreciate GI help IV Protonix changed to Protonix 40mg daily May need Further eval like capsule endoscopy as out patient Advised to follow up with GI as outpatient Hb 10.9 today (2) Acute blood loss anemia: Plan: S/P 2 units PRBCs Monitor Hb (3) Electrolyte imbalance: Plan: Replete as needed (4) Hypertension: Plan: Continue current medications (5) Interstitial lung disease: Plan: H/O Interstitial lung disease and is on 2 L of nasal cannula oxygen at home Recently came under [employer] system and was seen by county tax assessor Follow up with county tax assessor as outpatient Plan DVT prophylaxis SCDs CODE STATUS Full Code Disposition SNF today Admission and Anticipated Discharge Date Admission Date: June 14, 2022 Subjective Patient is seen and examined at bedside Doing well today No recurrence of bleeding Denies any chest pain, shortness of breath, dizziness, nausea, abdominal pain Plan to discharged home today Review of Systems Review of Systems: All systems reviewed & are unremarkable except as noted in Subjective Physical Exam Physical Exam: Physical Exam: Vitals signs as noted above General Appearance:Moderately built and nourished, no apparent distress Head: normocephalic, Atraumatic Eyes: normal inspection, EOMI Neck: supple, Trachea midline Respiratory/Chest: Decreased breath sounds, B/L scattered crackles, No accessory muscle use Cardiovascular: S1, S2, No murmur Abdomen/GI:Soft, Non tender, Bowel sounds present Extremities/Musculoskeletal:normal inspection, no edema Neurologic/Psych:AAOX3, grossly no focal neurological deficits Skin: normal color, warm Results & Data Results & Data ([facility]) Vital Signs (Past 12 Hours) Vital Signs Temp Pulse Pulse Resp BP Pulse Ox O2 Del Method 06/17/22 11:45 36.3 C L 69 18 122/65 95 Nasal Cannula 06/17/22 08:15 Nasal Cannula 06/17/22 10:15 73 06/17/22 07:38 36.6 C 60 20 125/72 99 Nasal Cannula 06/17/22 03:11 37 C 52 L 16 132/72 96 Nasal Cannula O2 Flow Rate 06/17/22 11:45 2 06/17/22 08:15 2 06/17/22 10:15 06/17/22 07:38 2 06/17/22 03:11 2 Laboratory Results Short CBC 06/17/22 Range/Units 08:29 Hgb 10.9 L (14.0-18.0) g/dl Hct 33.1 L (40.1-51.0) % BMP 06/17/22 08:29 Sodium 132 L Potassium 3.7 Chloride 93 L Carbon Dioxide 36 H BUN 12 Creatinine 0.99 Glucose 234 H Calcium 9.3
--- NOTE | 2022-06-17 12:59 | Discharge Summary ---
Date of Service June 17, 2022 Admission HPI Per Admitting Provider CHIEF COMPLAINT: Diarrhea, weakness. HISTORY OF PRESENT ILLNESS: This is an 86-year-old male with past medical history significant for hypertension, diabetes, pulmonary hypertension, interstitial pulmonary fibrosis, chronic respiratory failure, currently on 2 L oxygen, who lives at independent living, brought in by his son because the patient feeling weak and tired and having diarrhea for last 5 days and as he is not getting better. The patient says since last five days he has had significant diarrhea and one week, he is having black stools, which he thought because of blueberries which he was eating . Hemoglobin is 7.7, it was 12.5 last month. The patient was recently started on oxygen for interstitial lung disease and since then his dyspnea on exertion is much improved, cough improved. He had COVID in March of this year and since then he going down as per patient. Currently, resting comfortably, hemodynamically stable, saturating okay. Denies any headache. No blurred visions, no runny nose, has dry mouth. Has chronic cough. He has no difficulty swallowing. Appetite is not that great. Denies any chest pain, no shortness of breath, no nausea, no abdominal pain. Normal bladder movements. No swelling in the legs. Admission Exam Per Admitting Provider PHYSICAL EXAMINATION: GENERAL: The patient is alert and oriented, not in acute distress. VITAL SIGNS: Temperature 37, pulse 69, respiratory rate 19, blood pressure 126/69, oxygen 98% on room air. HEENT: Pupils equal, round and reactive to light. Oral mucosa dry. NECK: No JVD, no neck masses. CARDIOVASCULAR: S1 and S2 heard. Ejection systolic murmur in aortic area heard. Regular rate and rhythm. RESPIRATORY SYSTEM: Normal AP diameter. No accessory muscle use. No wheezing, no crackles. ABDOMEN: Soft, bowel sounds present, nontender, no distention. CENTRAL NERVOUS SYSTEM: Cranial nerves II-XII grossly intact, nonfocal. EXTREMITIES: No edema, no erythema. Principal Diagnosis Acute GI bleeding Acute blood loss anemia Discharge Data Allergies Allergy/AdvReac Type Severity Reaction Status Date / Time Iodinated Contrast Media Allergy Severe Anaphylaxis Verified 06/14/22 00:42 shrimp Allergy Severe Anaphylaxis Verified 06/14/22 02:43 Consultations 06/14/22 00:17 ED Decision to Admit Stat 06/14/22 08:00 Consult Gastroenterology Routine Procedures Performed Operation Date: 06/15/22 16:30 Actual Procedures s Colonoscopy - Lionel Rubio MD p Esophagogastroduodenoscopy - Lionel Rubio MD Hospital Course (1) Acute GI bleeding: Likely Multifactorial: Small intestine, diverticular, hemorrhoidal S/P EGD: Normal esophagus, normal stomach, normal examination of duodenum S/P Colonoscopy:Hemorrhoids found on perianal exam, diverticulosis in sigmoid colon Aspirin Held Appreciate GI help IV Protonix changed to Protonix 40mg daily May need Further eval like capsule endoscopy as out patient Advised to follow up with GI as outpatient Hb 10.9 today (2) Acute blood loss anemia: S/P 2 units PRBCs Monitor Hb (3) Electrolyte imbalance: Replete as needed (4) Hypertension: Continue current medications (5) Interstitial lung disease: H/O Interstitial lung disease and is on 2 L of nasal cannula oxygen at home Recently came under [facility] system and was seen by cloth examiner hand Follow up with cloth examiner hand as outpatient Plan DVT prophylaxis SCDs CODE STATUS Full Code Disposition SNF today Total Time Total Time Spent Total Time Spent (In Minutes): 45 minutes Discharge Plan Discharge Items Patient Disposition: Transfer Intermediate Fac Reason For Visit: DIARRHEA,WEAKNESS Discharge Diagnosis: Acute GI bleeding Acute blood loss anemia Activity: Per Instructions section Exercise/Sports: Gradually increase as tolerated Non-emergency contact: Primary Care Provider and Undercoat Sprayer Call non-emergency contact if: you have any medication questions, your symptoms worsen, your pain is concerning for you and you have a fever Follow-up/Referrals: Simon Riley DO [Outside Practitioners] - (Date & Time 06/21/2022 12:00 PM Provider Simon Riley DO Department Family Practice [facility] ) [facility] [Primary Care Provider] - Diet: Carb Consistent or DM2 and Heart Healthy Addtl Attending Provider Instructions: Follow-up with your primary care physician on 06/21/2022 12:00 PM Follow-up with your buildings and grounds coordinator Dr. Rubio in 4 weeks for further evaluation -- Start taking Protonix 40 mg daily --Discuss with your physician regarding Aspirin as advised Seek immediate medical attention if your symptoms reoccur or worsen Please take all medications as instructed on discharge list below. Please call if you have any questions or problems. You can reach a [facility] hospitalist on duty at [facility] 24 hours a day by calling [phone] Pending Studies at Discharge: No Stand-Alone Forms: My [facility] Skilled Items Patient informed of condition?: Yes DNR: No Discharge Level of Care: Skilled Communicable Disease: No Discharge Prognosis: Stable Lines: None Urinary Catheter: No Medications and DC Order Prescriptions: New pantoprazole 40 mg Tablet,Delayed Release (Dr/Ec) 40 mg PO QAM Qty: 40 1RF Continued metformin 500 mg Tablet 1,000 mg PO BIDWMEAL atorvastatin 10 mg Tablet 10 mg PO UD aspirin [Aspirin Low-Strength] 81 mg Tablet,Delayed Release (Dr/Ec) 81 mg PO DAILY Trulicity 0.75 mg/0.5 mL Pen Injector 0.75 mg SUBCUT WK Rx Instructions: tuesdays hydrochlorothiazide 50 mg Tablet 50 mg PO DAILY losartan 100 mg Tablet 100 mg PO DAILY ascorbic acid (vitamin C) [Vitamin C] 1,000 mg Tablet 1 g PO DAILY Discharge Orders: Discharge Order (Routine); Ordered 06/17/22 Ordered By: Samson Warren Admission Data Admit Date/Time: 06/14/22 01:49 Attending Provider: Samson Warren Admit Provider: Ruben Bass Primary Care Provider: [facility] Other Providers: Ruben Bass ; Fransisco Blandon ; Amara Gilliland ; Melissa Estevez ; Deepa Andre ; Ellis Bermudez ; Abad Rivera ; Nguyễn Gonzalez ; Lionel Rubio ; Celsa Davila ; Diana Quintana ; Jhoana Pimentel ; Arabella Lang ; Payam Grant
== END 2022-06-17 14:22 | DRG 378 ==
LOC: ED 22:20 → EDINP 06-14 01:49 → SUATTDRO 06-14 01:49 → 2S 06-14 02:14
DX: J96.10 Chronic respiratory failure, unspecified whether with hypoxia or hypercapnia; E87.1 Hypo-osmolality and hyponatremia; Z79.84 Long term (current) use of oral hypoglycemic drugs; D62 Acute posthemorrhagic anemia; J84.10 Pulmonary fibrosis, unspecified; K64.9 Unspecified hemorrhoids; I27.20 Pulmonary hypertension, unspecified; I10 Essential (primary) hypertension; Z91.041 Radiographic dye allergy status; K57.11 Diverticulosis of small intestine without perforation or abscess with bleeding; Z79.82 Long term (current) use of aspirin; I44.0 Atrioventricular block, first degree; E83.42 Hypomagnesemia; Z99.81 Dependence on supplemental oxygen; R19.7 Diarrhea, unspecified; K57.30 Diverticulosis of large intestine without perforation or abscess without bleeding; E78.5 Hyperlipidemia, unspecified; J84.9 Interstitial pulmonary disease, unspecified

== ENCOUNTER 2024-12-05 11:28 | Inpatient (IN) ==
--- NOTE | 2024-12-05 11:57 | Emergency Department Note ---
Impression & Plan Pneumonia, Anemia, Weakness, Thrombocytopenia ED Provider Note NAME: YAN AMEZCUA AGE: 88 SEX: M : 1935 ARRIVES VIA: Ambulance INFORMANT: Patient ED PROVIDER(S): Kelvin Ross DO CHIEF COMPLAINT: Weakness HPI: Patient is an 88-year-old male who presents ER for weakness. He has had a gradual decline over the past 3 months per son. He denies any headache or change in vision. No chest pain but admits to a cough without change. No dysuria urgency or frequency. No belly pain. No nausea vomiting or diarrhea. No dysuria urgency or frequency. Son notes that he cannot walk as he is super weak. He is chronically on 4 L nasal cannula. ADDITIONAL HISTORY OBTAINED: Per HPI Chronic Medical/Social Conditions Affecting Care: Per HPI PAST MEDICAL HISTORY:See Below PAST SURGICAL HISTORY:See Below FAMILY HISTORY:See Below SOCIAL HISTORY:See Below HOME MEDICATIONS:See Below ALLERGIES:See Below VITALS:See Below PHYSICAL EXAMINATION: GENERAL: Sitting up in bed, alert, well appearing, well nourished, no distress, non-toxic EYE EXAM: normal conjunctiva. OROPHARYNX: mucous membranes are moist LUNGS: Clear to auscultation. Normal chest wall mechanics HEART: no murmurs, S1 normal and S2 normal ABDOMEN: abdomen soft, non-tender, normo-active bowel sounds, no masses, no rebound or guarding. BACK: Back is symmetrical on inspection and there is no deformity, no midline tenderness, no CVA tenderness. SKIN: no rashes and no bruising UPPER EXTREMITIES: upper extremities are grossly normal. LOWER EXTREMITIES: No pitting edema. NEURO EXAM: Normal sensorium, cranial nerves II-XII grossly intact, normal speech, no gross weakness of arms, no gross weakness of legs. MEDICAL DECISION MAKING: Patient is an 88-year-old male who presents ER for the below stated complaint. IV was established and blood work was obtained. Labs show no significant leukocytosis. Mild anemia 11.2. Platelets were slightly low at 112. BMP with mild hyponatremia at 130. LFTs and bilirubin is unremarkable. Lipase is normal. Viral panel was positive for influenza. Chest x-ray showed multiple areas of infiltrates. Patient was given IV cefepime. He was updated bedside. He was given steroids and neb treatment. Case was discussed with the hospitalist for further evaluation management and treatment. Consults/Care Managements Discussions: Per MDM Triage Nursing notes reviewed. Limited review of prior medical records performed Vital Signs: reviewed and remarkable for no significant abnormalities Differential diagnosis: Differential diagnoses includes but is not limited to pneumonia, bronchitis, COPD/Asthma exacerbation, pneumothorax, pulmonary embolism, congestive heart failure, acute coronary syndrome ER treatment provided: See below Diagnostics interpreted by me include EKG and cardiac monitoring as listed below: -Cardiac Monitoring: An order was placed for continuous cardiac monitoring. The monitor shows a rate of 80 with sinus rhythm. -ECG: Sinus rhythm rate 87 First-degree AV block Right bundle branch block T wave inversions in V1 through V6 ST depressions in V2 through V6 QTc 459 No significant change from previous -Laboratory studies:Interpreted by me as stated above in MDM and shown below. Imaging studies: Xrays: As interpreted by me: Portable AP upright 1 view of the chest shows multiple infiltrates CTs show: none Procedures:none Critical Care: None Past Med/Surg History Problem List (Updated 12/05/24 @ 14:32 by Kelvin Ross DO) Thrombocytopenia (Acute) Weakness (Acute) Pneumonia (Acute) Acute lower GI bleeding (Acute) Anemia (Acute) Interstitial lung disease Hypertension Electrolyte imbalance Acute blood loss anemia Acute GI bleeding Anemia Encounter for pre-operative examination Fecal occult blood test positive Medical History Hyponatremia Symptomatic anemia H/O: HTN (hypertension) HLD (hyperlipidemia) Surgical History No pertinent past surgical history Social History Smoking Status: Never smoker Hx Alcohol Use: No Hx Substance Use: No Preferred Language: Georgian Communication Ability: Effective Forging Roll Operator Required: No Beliefs That Will Affect Care: None Current Living Situation: Alone Feels Safe at Home: Yes Assistive Devices: Cane and Oxygen - Continuous Allergies Allergies Allergy/AdvReac Type Severity Reaction Status Date / Time Iodinated Contrast Media Allergy Severe Anaphylaxis Verified 08/03/23 23:12 shrimp Allergy Severe Anaphylaxis Verified 08/03/23 23:12 Home Meds Home Medications Medication Instructions Recorded Confirmed Vivex Supplement 2 tab PO QAM 08/03/23 12/05/24 acetaminophen 325 mg tablet 650 mg PO Q8 PRN Pain 08/03/23 12/05/24 (Tylenol) albuterol sulfate 2.5 mg/3 mL 2.5 mg inhalation Q6H PRN 08/03/23 12/05/24 (0.083 %) solution for nebulization Shortness Of Breath Or Wheezing albuterol sulfate 90 mcg/actuation 2 puff inhalation Q6 PRN .SOB, 08/03/23 12/05/24 aerosol inhaler COUGH, WHEEZE ascorbic acid (vitamin C) 1,000 mg 500 g PO BID 08/03/23 12/05/24 tablet (Vitamin C) atorvastatin 10 mg tablet 10 mg PO HS 08/03/23 12/05/24 azelastine 137 mcg (0.1 %) nasal 1 spray intranasal AMHS 08/03/23 12/05/24 spray dulaglutide 0.75 mg/0.5 mL 0.75 mg subcut .Q TUES 08/03/23 12/05/24 subcutaneous pen injector (Trulicity) fluticasone propionate 110 2 puff inhalation QAM 08/03/23 12/05/24 mcg/actuation HFA aerosol inhaler (Flovent HFA) fluticasone propionate 50 2 spray intranasal DAILY 08/03/23 12/05/24 mcg/actuation nasal spray,suspension food supplemt, lactose-reduced 1 ea PO DAILY 08/03/23 12/05/24 hydrochlorothiazide 50 mg tablet 50 mg PO DAILY 08/03/23 12/05/24 levocetirizine 5 mg tablet 5 mg PO DAILY 08/03/23 12/05/24 losartan 100 mg tablet 100 mg PO QAM 08/03/23 12/05/24 metformin 500 mg tablet 1,000 mg PO BID 08/03/23 12/05/24 tamsulosin 0.4 mg capsule 0.4 mg PO DAILY 08/03/23 12/05/24 ferrous sulfate 325 mg (65 mg 325 mg PO BID 12/05/24 12/05/24 iron) tablet ipratropium bromide 21 mcg (0.03 2 spray intranasal BID PRN 12/05/24 12/05/24 %) nasal spray allergic rhinit omeprazole 20 mg tablet,delayed 20 mg PO DAILY 12/05/24 12/05/24 release Results & Data (ED) Vital Signs Vital Signs - 24 hr 12/05/24 11:34 12/05/24 11:34 12/05/24 12:27 Pulse Rate 90 73 Pulse Rate [Finger] Respiratory Rate 16 Respiratory Effort / Characteristics Non-Labored Spontaneous Respiratory Depth Normal Blood Pressure 124/84 Blood Pressure [Right Arm] Blood Pressure Mean 97 Blood Pressure Mean [Right Arm] Blood Pressure Position Sitting Pulse Oximetry 85 L 86 L Oxygen Delivery Method Nasal Cannula Nasal Cannula Oxygen Flow Rate 4 Sepsis Recent Fever Within 48 Hours No Sepsis New/Unexplained Change in Mental Status N/A Sepsis Action Taken by Nursing No Action Required Oxygen Flow Rate - Titration 6 Pulse Oximetry Post Tiitration 97 12/05/24 12:30 12/05/24 12:54 12/05/24 13:30 Pulse Rate 78 77 Pulse Rate [Finger] 76 Respiratory Rate 20 20 21 Respiratory Effort / Characteristics Non-Labored Spontaneous Respiratory Depth Normal Blood Pressure 107/67 119/76 Blood Pressure [Right Arm] 107/67 Blood Pressure Mean 74 90 Blood Pressure Mean [Right Arm] 80 Blood Pressure Position Pulse Oximetry 95 94 95 Oxygen Delivery Method Nasal Cannula Nasal Cannula Nasal Cannula Oxygen Flow Rate 4 4 4 Sepsis Recent Fever Within 48 Hours Sepsis New/Unexplained Change in Mental Status Sepsis Action Taken by Nursing Oxygen Flow Rate - Titration Pulse Oximetry Post Tiitration Laboratory Data 12/05/24 11:40 12/05/24 11:40 Lab Results 12/05/24 12/05/24 Range/Units 11:40 12:57 WBC 7.30 (4.8-10.8) K/ul RBC 3.82 L (4.70-6.10) M/uL Hgb 11.2 L (14.0-18.0) g/dl Hct 34.0 L (42.0-52.0) % MCV 89.0 (80.0-100.0) fL MCH 29.3 (25.0-34.0) pg MCHC 32.9 (32.0-36.0) g/dL RDW Std Deviation 49.1 H (36.4-46.3) fL RDW Coeff of Jose 15.0 H (11.5-14.5) % Plt Count 112 L (130-400) K/uL MPV 9.3 L (9.4-12.4) fL Immature Gran % (Auto) 0.5 % Neut % (Auto) 60.1 % Lymph % (Auto) 30.0 % [place] % (Auto) 7.0 % Eos % (Auto) 2.1 % Baso % (Auto) 0.3 % Neut # (Auto) 4.39 (1.40-6.50) K/uL Lymph # (Auto) 2.19 (1.20-3.40) K/uL [place] # (Auto) 0.51 (0.11-0.59) K/uL Eos # (Auto) 0.15 (0.00-0.50) K/uL Baso # (Auto) 0.02 (0.00-0.20) K/uL Immature Gran # (Auto) 0.04 (0.01-0.20) K/uL Sodium 130 L (136-145) mmol/L Potassium 4.5 (3.5-5.1) mmol/L Chloride 85 L (98-107) mmol/L Carbon Dioxide 39 H (21-32) mmol/L Anion Gap 6 (3-11) BUN 25 H (6-23) mg/dl Creatinine 0.91 (0.6-1.4) mg/dl Est Cr Clr Drug Dosing 53.4 ml/min eGFR 81.57 BUN/Creatinine Ratio 27.5 H (10-20) Glucose 120 H (70-99(Fasting)) mg/dl Calcium 9.2 (8.6-10.3) mg/dl Total Bilirubin 0.7 (0.2-1.0) mg/dl AST 15 (13-39) U/L ALT 9 (7-52) U/L Alkaline Phosphatase 65 (34-104) U/L Total Protein 7.2 (6.0-8.3) gm/dl Albumin 3.7 (3.4-5.0) gm/dl Globulin 3.5 (2.5-4.0) gm/dl Albumin/Globulin Ratio 1.1 (0.9-2) Lipase 40 (11-82) U/L Procalcitonin Cancelled Adenovirus (PCR) Not Detected (NotDetected) B. pertussis DNA (PCR) Not Detected (NotDetected) B.parapertussis DNA PCR Not Detected (NotDetected) C. pneumoniae DNA (PCR) Not Detected (NotDetected) Coronavirus OC43 (PCR) Not Detected (NotDetected) Coronavirus HKU1 (PCR) Not Detected (NotDetected) Coronavirus 229E (PCR) Not Detected (NotDetected) SARS-CoV-2 (PCR) Not Detected (NotDetected) Coronavirus NL63 (PCR) Not Detected (NotDetected) Human Metapneumovir PCR Not Detected (NotDetected) Influenza A (H3) PCR DETECTED A (NotDetected) Influenza Type B (PCR) Not Detected (NotDetected) M. pneumoniae (PCR) Not Detected (NotDetected) Parainfluenza 1 (PCR) Not Detected (NotDetected) Parainfluenza 2 (PCR) Not Detected (NotDetected) Parainfluenza 3 (PCR) Not Detected (NotDetected) Parainfluenza 4 (PCR) Not Detected (NotDetected) RSV (PCR) Not Detected (NotDetected) Entero/Rhino (PCR) Not Detected (NotDetected) Administered Medications Discontinued Medications Albuterol (Albut/Ipratrop 3mg/0.5mg Neb 3 Ml Vial) 3 ml NEB NOW STA; Protocol Stop: 12/05/24 12:42 Last Admin: 12/05/24 12:48 Dose: 3 ml Documented By: RAMONA Cefepime HCl (Maxipime 2000mg) 2,000 mg in 20 mls @ 5 mls/min IV NOW STA; Protocol Stop: 12/05/24 12:43 Last Admin: 12/05/24 12:48 Dose: 5 mls/min Documented By: RAMONA Sodium Chloride (Nss) 500 mls @ 999 mls/hr IV .Q31M ONE Stop: 12/05/24 13:11 Last Infusion: 12/05/24 13:31 Dose: Infused Documented By: Admin: 12/05/24 12:53 Dose: 999 mls/hr Documented By: RAMONA Methylprednisolone (Methylprednisolone 125 Mg/2 Ml Vial) 60 mg IV NOW STA Stop: 12/05/24 12:41 Last Admin: 12/05/24 12:48 Dose: 60 mg Documented By: RAMONA Imaging Data Radiologist's Impression: Chest X-Ray 12/05/24 11:54 XR chest 1V portable CLINICAL HISTORY: cough COMPARISON STUDY: 08/03/2023 FINDINGS: There is stable cardiomegaly without pulmonary vascular congestion. There is increased diffuse interstitial infiltrate patchy opacity. No lobar consolidation or pleural effusion. No pneumothorax. IMPRESSION: Increased pulmonary opacities likely represent acute pneumonia superimposed on chronic lung disease. ACT 112: Negative or not required by law. Electronically signed by: Kaiser Munroe M.D. 12/05/2024 12:29 PM Discharge Plan Visit Data Chief Complaint: Weakness Stated Complaint: WEAKNESS ED Provider: Kelvin Ross Discharge Problem: Pneumonia, Anemia, Weakness, Thrombocytopenia Forms Stand Alone Forms: My [facility] Prescriptions Prescriptions: No Action metformin 500 mg tablet 1,000 mg PO BID ascorbic acid (vitamin C) [Vitamin C] 1,000 mg Tablet 500 g PO BID acetaminophen [Tylenol] 325 mg Tablet 650 mg PO Q8 PRN (Reason: Pain) albuterol sulfate 2.5 mg /3 mL (0.083 %) Solution For Nebulization 2.5 mg INHALATION Q6H PRN (Reason: Shortness Of Breath Or Wheezing) atorvastatin 10 mg tablet 10 mg PO HS hydrochlorothiazide 50 mg tablet 50 mg PO DAILY tamsulosin 0.4 mg capsule 0.4 mg PO DAILY azelastine 137 mcg (0.1 %) aerosol,spray 1 spray INTRANASAL AMHS albuterol sulfate 90 mcg/actuation HFA aerosol inhaler 2 puff INHALATION Q6 PRN (Reason: .SOB, COUGH, WHEEZE) losartan 100 mg tablet 100 mg PO QAM fluticasone propionate 50 mcg/actuation spray,suspension 2 spray INTRANASAL DAILY fluticasone propionate [Flovent HFA] 110 mcg/actuation HFA aerosol inhaler 2 puff INHALATION QAM food supplemt, lactose-reduced Liquid 1 ea PO DAILY levocetirizine 5 mg tablet 5 mg PO DAILY Trulicity 0.75 mg/0.5 mL pen injector 0.75 mg SUBCUT .Q TUES Vivex Supplement 2 tab PO QAM Rx Instructions: Liquid gels omeprazole 20 mg Tablet,Delayed Release (Dr/Ec) 20 mg PO DAILY ferrous sulfate 325 mg (65 mg iron) Tablet 325 mg PO BID ipratropium bromide 21 mcg (0.03 %) [place],Non-Aerosol 2 spray INTRANASAL BID PRN (Reason: allergic rhinit) Rx Instructions: administer into each nostril Referrals Referrals: Dominguez El[facility] [Primary Care Provider] - Discharge Problem: Pneumonia Qualifiers: Pneumonia type: due to unspecified organism Laterality: unspecified laterality Lung location: unspecified part of lung Qualified Code(s): J18.9 - Pneumonia, unspecified organism Anemia Qualifiers: Anemia type: unspecified type Qualified Code(s): D64.9 - Anemia, unspecified
[2024-12-05 12:12] LABS: Basophils # (auto) 0.02 K/uL (0.00-0.20); Basophils % (auto) 0.3 %; Eosinophils # (auto) 0.15 K/uL (0.00-0.50); Eosinophils % (auto) 2.1 %; Hemoglobin 11.2 g/dl (14.0-18.0); Immature Granulocytes # (auto) 0.04 K/uL (0.01-0.20); Immature Granulocytes % (auto) 0.5 %; Lymphocytes # (auto) 2.19 K/uL (1.20-3.40); Mean Corpuscular Hemoglobin 29.3 pg (25.0-34.0); Mean Corpuscular Hgb Conc 32.9 g/dL (32.0-36.0); Mean Platelet Volume 9.3 fL (9.4-12.4); Monocytes # (auto) 0.51 K/uL (0.11-0.59); Neutrophils # (auto) 4.39 K/uL (1.40-6.50); Neutrophils % (auto) 60.1 %; Platelet Count 112 K/uL (130-400); RDW Standard Deviation 49.1 fL (36.4-46.3); Red Blood Count 3.82 M/uL (4.70-6.10)
[2024-12-05 12:29] LABS: Albumin Globulin Ratio 1.1 (0.9-2); Albumin Level 3.7 gm/dl (3.4-5.0); BUN Creatinine Ratio 27.5 (10-20); Bilirubin,Total 0.7 mg/dl (0.2-1.0); Calcium 9.2 mg/dl (8.6-10.3); Creatinine Clr Calc Pharmacy 53.4 ml/min; Globulin 3.5 gm/dl (2.5-4.0); Potassium 4.5 mmol/L (3.5-5.1); Total Protein 7.2 gm/dl (6.0-8.3)
--- NOTE | 2024-12-05 12:30 | XRay Report ---
XR chest 1V portable CLINICAL HISTORY: cough COMPARISON STUDY: 08/03/2023 FINDINGS: There is stable cardiomegaly without pulmonary vascular congestion. There is increased diff use interstitial infiltrate patchy opacity. No lobar consolidation or pleural effusion. No pneumothor ax. IMPRESSION: Increased pulmonary opacities likely represent acute pneumonia superimposed on chronic l steffanie disease. ACT 112: Negative or not required by law. Electronically signed by: Kaiser Munroe M.D. 12/05/2024 12:29 PM
[2024-12-05] MEDS: CEFEPIME 2000MG 2,000 MG/20 ML SYR IV STA (12:48)
[2024-12-05] MEDS: methylPREDNISolone 125 MG/2 ML VIAL IV STA (12:48)
[2024-12-05] MEDS: ALBUT/IPRATROP 3MG/0.5MG NEB 3 ML VIAL NEB STA ×2 (12:48→23:51)
[2024-12-05] MEDS: SODIUM CHLORIDE 0.9% 500 ML IV ONE (12:53)
[2024-12-05 14:05] LABS: Adenovirus PCR Not Detected (NotDetected); Bordetella parapertussis PCR Not Detected (NotDetected); Bordetella pertussis PCR Not Detected (NotDetected); Chlamydia pneumoniae PCR Not Detected (NotDetected); Coronavirus 229E PCR Not Detected (NotDetected); Coronavirus CoV-2 (COVID19)PCR Not Detected (NotDetected); Coronavirus HKU1 PCR Not Detected (NotDetected); Coronavirus NL63 PCR Not Detected (NotDetected); Coronavirus OC43PCR Not Detected (NotDetected); Human Metapneumovirus PCR Not Detected (NotDetected); Influenza A (H3) PCR DETECTED (NotDetected); Influenza B PCR Not Detected (NotDetected); Mycoplasma pneumoniae PCR Not Detected (NotDetected); Parainfluenza Virus 1 PCR Not Detected (NotDetected); Parainfluenza Virus 2 PCR Not Detected (NotDetected); Parainfluenza Virus 3 PCR Not Detected (NotDetected); Parainfluenza Virus 4 PCR Not Detected (NotDetected); Respiratory Syncytial VirusPCR Not Detected (NotDetected); Rhinovirus/Enterovirus PCR Not Detected (NotDetected)
--- NOTE | 2024-12-05 14:17 | History & Physical Report ---
Date of Service December 05, 2024 Assessment & Plan (1) Generalized weakness: (2) Influenza A: (3) Interstitial lung disease: (4) Chronic respiratory failure with hypoxia: (5) Pneumonia: (6) Thrombocytopenia: (7) Hyponatremia: Plan This is a 88-year-old male who has a significant past medical history of interstitial lung disease, chronic respiratory failure with hypoxia on 4 L of oxygen at rest and 5 with exertion, T2DM, HTN, HLD, chronic hyponatremia, BPH, osteoarthritis who presents to ED secondary to generalized weakness and decline over a few months. #Generalized weakness #Influenza A #Chronic Hypoxic resp failure on 4L at rest/5L with exertion #ILD - follows Dr. Morales #Pneumonia admit to med tele pt with a gradual decline over the last 2-3 months per Son 6 Months ago he was driving and ambulating w/o much assistance, now he is mostly confined to a wheel chair, Son concerned underlying condition resulting in the progressive decline Will Start Jovita flu for influenza Obtain CT Chest to better evaluate PNA in setting of ILD will hold off on steroids as no wheezing Duoneb TID, pulmonary toilet with flutter, ISP IV rocephin and oral azithromycin ordered Keep oxygen saturation around 90% given ILD #Acute thrombocytopenia #lower extremity Petechial Rash rash present for 2 weeks obtain peripheral smear, B12 ? if related to underlying illness, follow plt closely #Chronic Hyponatremia Na 130 today, appears to be chronically hyponatremic since 2021 on HCTZ 50mg daily, recommend d/c at discharge will give 500ml IVF x 1 bag follow a.m. labs, may be contributing to generalized weakness #Weight Loss pt with 8kg weight loss since 08/2023 suspect related to chronic disease state poor appetite consult lot porter #Poor Sleep hygiene ends up sleeping during the day b/c he is up all night will schedule melatonin, could consider remeron as it may help with appetite too #HTN chronic, stable, continue losartan STOP HCTZ, monitor BP #T2DM hold metformin, trulicity a1c in a.m., ISS per protocol #ECG Change pt denies CP, ecg compared to 2022, increase in T wave inversion update echo, last was 2022 #Stage I sacral pressure ulcer turn/position, daily dressing change, wound care DVT ppx: none 2/2 to low plts and lower ext petechiae FULL CODE PCP: Tien as well as a Dr Torres at [facility] Dispo: admit to med tele, PT/OT consulted Pt was seen and examined in collaboration with Dr. West, please see addendum I spent a total of 77 minutes coordinating, documenting and providing care for this patient excluding time spent in the performance of separately billed services or time spent by another provider/QHP. History of Present Illness Chief Complaint: generalized weakness and decline over a few months. Primary Care Provider: [facility] This is a 88-year-old male who has a significant past medical history of interstitial lung disease, chronic respiratory failure with hypoxia on 4 L of oxygen at rest and 5 with exertion, T2DM, HTN, HLD, chronic hyponatremia, BPH, osteoarthritis who presents to ED secondary to generalized weakness and decline over a few months. History is provided by patient, son Blake at bedside as well as external chart review. Patient is currently in an assisted living facility and has been there for the last 9 months. Son reports up until 6 months ago patient was out driving. He reports over the last 2 months he has went from ambulatory to mostly only transferring to a wheelchair. Previously he was walking up to their dining area and currently he is requiring to be wheeled. He also feels he is, "wasting a way." Patient reports if the temperature is under 50 degrees he cannot go outside due to his lung condition. He reports chronic shortness of breath with even minimal exertion, but this is unchanged. He has a chronic productive cough with cardoso sputum. He has new red dots on his legs that have been present for the last 2 weeks. He denies any itching or pain with them. He does report swelling to his ankles when this rash started, but that has since subsided. He denies any fever, chills, sweats, lightheadedness, dizziness, chest pain, hemoptysis, nausea, vomiting, abdominal pain. Overall his appetite is diminished. He also reports poor sleep hygiene at night. 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 He understands the phase of life. He understands that he has less time here than previous. He denies overall being depressed as he feels he has a good understanding on how life works and understands his current phase of life. In ED patient was hemodynamically stable. He was saturating normal on 4 to 5 L of oxygen. Lab work notable for a sodium of 130, BUN 25, platelet count of 112. Chest x-ray concerning for pneumonia. His influenza A was positive. Allergies Allergy/AdvReac Type Severity Reaction Status Date / Time Iodinated Contrast Media Allergy Severe Anaphylaxis Verified 08/03/23 23:12 shrimp Allergy Severe Anaphylaxis Verified 08/03/23 23:12 Home Medications Medication Instructions Recorded Confirmed Type Vivex Supplement 2 tab PO QAM 08/03/23 12/05/24 History acetaminophen 325 mg tablet 650 mg PO Q8 PRN Pain 08/03/23 12/05/24 History (Tylenol) albuterol sulfate 2.5 mg/3 mL 2.5 mg inhalation Q6H PRN 08/03/23 12/05/24 History (0.083 %) solution for nebulization Shortness Of Breath Or Wheezing albuterol sulfate 90 mcg/actuation 2 puff inhalation Q6 PRN .SOB, 08/03/23 12/05/24 History aerosol inhaler COUGH, WHEEZE ascorbic acid (vitamin C) 1,000 mg 500 g PO BID 08/03/23 12/05/24 History tablet (Vitamin C) atorvastatin 10 mg tablet 10 mg PO HS 08/03/23 12/05/24 History azelastine 137 mcg (0.1 %) nasal 1 spray intranasal AMHS 08/03/23 12/05/24 History spray dulaglutide 0.75 mg/0.5 mL 0.75 mg subcut .Q TUES 08/03/23 12/05/24 History subcutaneous pen injector (Trulicity) fluticasone propionate 110 2 puff inhalation QAM 08/03/23 12/05/24 History mcg/actuation HFA aerosol inhaler (Flovent HFA) fluticasone propionate 50 2 spray intranasal DAILY 08/03/23 12/05/24 History mcg/actuation nasal spray,suspension food supplemt, lactose-reduced 1 ea PO DAILY 08/03/23 12/05/24 History hydrochlorothiazide 50 mg tablet 50 mg PO DAILY 08/03/23 12/05/24 History levocetirizine 5 mg tablet 5 mg PO DAILY 08/03/23 12/05/24 History losartan 100 mg tablet 100 mg PO QAM 08/03/23 12/05/24 History metformin 500 mg tablet 1,000 mg PO BID 08/03/23 12/05/24 History tamsulosin 0.4 mg capsule 0.4 mg PO DAILY 08/03/23 12/05/24 History ferrous sulfate 325 mg (65 mg 325 mg PO BID 12/05/24 12/05/24 History iron) tablet ipratropium bromide 21 mcg (0.03 2 spray intranasal BID PRN 12/05/24 12/05/24 History %) nasal spray allergic rhinit omeprazole 20 mg tablet,delayed 20 mg PO DAILY 12/05/24 12/05/24 History release Past Med/Surg History Problem List (Updated 12/05/24 @ 14:33 by Priti Eduardo PA-C) Chronic respiratory failure with hypoxia Influenza A Generalized weakness Thrombocytopenia (Acute) Weakness (Acute) Pneumonia (Acute) Acute lower GI bleeding (Acute) Anemia (Acute) Interstitial lung disease Hypertension Electrolyte imbalance Acute blood loss anemia Acute GI bleeding Anemia Encounter for pre-operative examination Fecal occult blood test positive Medical History Hyponatremia Symptomatic anemia H/O: HTN (hypertension) HLD (hyperlipidemia) Surgical History No pertinent past surgical history Social History Smoking Status: Never smoker Hx Alcohol Use: No Hx Substance Use: No Preferred Language: Upper Sorbian Communication Ability: Effective Director Of Therapy Services Required: No Beliefs That Will Affect Care: None Current Living Situation: Alone Feels Safe at Home: Yes Assistive Devices: Cane and Oxygen - Continuous Review of Systems Review of Systems: All systems reviewed & are unremarkable except as noted in HPI & below Physical Exam Physical Exam: Constitutional: Elderly, Cachectic M vitals as above, NAD, sitting up in bed, pleasant, conversing easily but tachypneic with conversation Head: Normocephalic, Atraumatic Eyes: PERRL, conjunctivae normal, anicteric sclerae ENMT: external ear and nose normal, oropharynx normal dry membranes Neck: trachea midline, no thyromegaly normal visual inspection Respiratory: normal respiratory effort, lungs clear to auscultation, no wheeze, rales, rhonchi. Normal insp/exp effort, no accessory muscle use Cardiovascular: RRR, no edema Vessels: no JVD or carotid bruit Chest: normal inspection of chest Abdomen: normal bowel sounds, soft, nontender, no hepatosplenomegaly Musculoskeletal: no cyanosis or clubbing, extremities motor strength 5/5 Skin: B/l below the knee petechial rash b/l, warm and dry normal turgor , + b/l sacral erythema, R gluteal wound 3mm Neurologic: PERRL, EOMI, accommodation nl, no face palsy, no dysarthria CN's II-XI intact bilaterally and moves all extremities Psychiatric: A+Ox3, euthymic affect Lymphatic: no cervical or axillary lymphadenopathy : deferred Results & Data Results & Data Vital Signs (Past 12 Hours) Vital Signs Pulse Pulse Resp BP BP Pulse Ox O2 Del Method 12/05/24 13:30 77 21 119/76 95 Nasal Cannula 12/05/24 12:54 76 20 107/67 94 Nasal Cannula 12/05/24 12:30 78 20 107/67 95 Nasal Cannula 12/05/24 12:27 73 12/05/24 11:34 86 L Nasal Cannula 12/05/24 11:34 90 16 124/84 85 L Nasal Cannula O2 Flow Rate 12/05/24 13:30 4 12/05/24 12:54 4 12/05/24 12:30 4 12/05/24 12:27 12/05/24 11:34 4 12/05/24 11:34 Laboratory Results I have independently reviewed and interpreted patient's admitting labs including CBC, CMP, lipase, resp biofire Diagnostic Findings Chest X-Ray 12/05/24 11:54 XR chest 1V portable CLINICAL HISTORY: cough COMPARISON STUDY: 08/03/2023 FINDINGS: There is stable cardiomegaly without pulmonary vascular congestion. There is increased diffuse interstitial infiltrate patchy opacity. No lobar consolidation or pleural effusion. No pneumothorax. IMPRESSION: Increased pulmonary opacities likely represent acute pneumonia superimposed on chronic lung disease. ACT 112: Negative or not required by law. Electronically signed by: Kaiser Munroe M.D. 12/05/2024 12:29 PM Medications Administered Medication List Discontinued Medications Albuterol (Albut/Ipratrop 3mg/0.5mg Neb 3 Ml Vial) 3 ml NEB NOW STA; Protocol Stop: 12/05/24 12:42 Last Admin: 12/05/24 12:48 Dose: 3 ml Documented By: RAMONA Cefepime HCl (Maxipime 2000mg) 2,000 mg in 20 mls @ 5 mls/min IV NOW STA; Protocol Stop: 12/05/24 12:43 Last Admin: 12/05/24 12:48 Dose: 5 mls/min Documented By: RAMONA Sodium Chloride (Nss) 500 mls @ 999 mls/hr IV .Q31M ONE Stop: 12/05/24 13:11 Last Infusion: 12/05/24 13:31 Dose: Infused Documented By: Admin: 12/05/24 12:53 Dose: 999 mls/hr Documented By: RAMONA Methylprednisolone (Methylprednisolone 125 Mg/2 Ml Vial) 60 mg IV NOW STA Stop: 12/05/24 12:41 Last Admin: 12/05/24 12:48 Dose: 60 mg Documented By: RAMONA ECG Additional Comments: I have independently reviewed and interpreted patient's admitting EKG which revealed: SR 1st degree AVB, RBBB, T wave inversion inferolateral leads, some ncrease in T wave inversion from previous but not drastically different Code Status & VTE Plan Code Status FULL CODE VTE Prophylaxis Plan VTE Prophylaxis will be ordered: Yes Supervising Physician Co-Signing Physician Notes Patient is a 88-year-old male with past medical history of interstitial lung disease (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 Her son reports decline in his function, weight for last several months. On physical examination Constitutional: Alert oriented x 3; in mild respiratory distress. Respiratory: Bilateral coarse crackles present in lower lung field Cardiovascular: RRR, no murmur, no edema Vessels: no JVD or carotid bruit Chest: normal inspection of chest Abdomen: normal bowel sounds, soft, nontender, no hepatosplenomegaly Musculoskeletal: Blanching redness present on lower back just above the buttocks. No open wounds. Neurologic: PERRL, EOMI, accommodation nl, no face palsy, no dysarthria CN's II- XI intact bilaterally and moves all extremities Psychiatric: A+Ox3, euthymic affect Assessment/plan Influenza A; start Tamiflu; plan to treat for 5 days Hyponatremia; stop hydrochlorothiazide indefinitively. Will start alternative agent if blood pressure is elevated. IV fluids with NS. Possible pneumonia; plan to treat with ceftriaxone, azithromycin. Generalized weakness, weight loss; going on for several months. There is a poss ibility of progression of interstitial lung disease; discussed with patient's son. Plan is to obtain CT chest without contrast; set up close follow-up with pulmonology as outpatient at discharge so that further treatment options are discussed. Will obtain vitamin B12 level, TSH Thrombocytopenia; obtain vitamin B12 level, obtain peripheral blood smear Stage I pressure ulcer, POA; change position every 2 hours I have reviewed the advanced practitioner's documentation, and I agree with, and take responsibility for the plan of care I spent a total of 40 minutes coordinating, documenting, and providing care for this patient excluding time spent in the performance of separately billed services. All of the aforementioned completed while collaborating with the assigned advanced practitioner for a full treatment plan (5) Pneumonia Laterality: unspecified laterality Lung location: unspecified part of lung Pneumonia type: due to unspecified organism Qualified Code(s): J18.9 - Pneumonia, unspecified organism
--- NOTE | 2024-12-05 15:30 | CT Scan Report ---
CT chest diagnostic wo con CT DOSE: 245.48 mGy.cm CLINICAL HISTORY: worsening SOB, PNA. TECHNIQUE: Multiaxial CT images of the chest were performed without contrast. A dose lowering techni que was utilized adhering to the principles of ALARA. Sagittal and coronal reconstructions were done. COMPARISON STUDY: Chest radiograph dated 12/05/2024, 08/03/2023, and 06/15/2022 FINDINGS: There is pronounced interstitial pulmonary fibrosis with honeycombing. The central pulmonar y arteries are quite pronounced suggesting pulmonary arterial hypertension. There is no definite evid ence of a superimposed pneumonia. There is no pleural effusion. The upper airway is grossly negative other than traction bronchiectasis associated with the fibrosis. There is no aortic aneurysm. There is moderate coronary artery calcification. There is a trace perica rdial effusion. There is no significant adenopathy. The upper abdominal images are noncontributory. IMPRESSION: Interstitial pulmonary fibrosis with probable pulmonary arterial hypertension. No definit e evidence of pneumonia. ACT 112: Negative or not required by law. Electronically signed by: Mary Jo Rudolhp M.D. 12/05/2024 3:28 PM
[2024-12-05] MEDS: OSELTAMIVIR PHOSPHATE 75 MG CAP PO STA (15:51)
[2024-12-05] MEDS: SODIUM CHLORIDE 0.9% 500 ML IV SCH (15:51)
[2024-12-05] MEDS ORDERED: CARBOHYDRATES FOR HYPOGLYCEMIA PO PRN (17:40)
[2024-12-05] MEDS ORDERED: GLUCOSE 10 TAB/TUBE PO PRN (17:40)
[2024-12-05] MEDS ORDERED: DEXTROSE 50% 50 ML SYRINGE IV PRN (17:40)
[2024-12-05] MEDS ORDERED: FAMOTIDINE 20 MG TAB PO PRN (17:40)
[2024-12-05] MEDS ORDERED: GLUCOSE 40% GEL 15 GM TUBE PO PRN (17:40)
[2024-12-05] MEDS ORDERED: POLYETHYLENE (MIRALAX) 17 GM PACK PO PRN (17:40)
[2024-12-05] MEDS ORDERED: ACETAMINOPHEN 325 MG TAB PO PRN (17:40)
[2024-12-05] MEDS ORDERED: GLUCAGON FOR INJ 1 MG VIAL SQ PRN (17:40)
[2024-12-05] MEDS ORDERED: ONDANSETRON INJ 2 MG/ML 2 ML VIAL IV PRN (17:40)
--- OUTSIDE RECORDS SUMMARY | 2024-12-05 17:49 | External Medical Summary | Summary of Care ---
Author Name Unknown Organization [facility] Address [address] [place] [address] Phone [phone] Care Team Providers Care Bike Assembler Name Role Phone Samuel Chauhan MD Primary Care Provider [phone] Reason for Referral * Evaluate & Treat - Unlimited Visits (Within 10 days (routine)) - Authorized Specialty Diagnoses / Procedures Referred By Nenita rosas Referred To Contact Physical Therapy / Physical Medicine And Rehab Diagnoses Ambulatory dysfunction Freda Curtis CRNP [address] [place] [address] Phone: tel: fax: Referral ID Status Reason Start Date Expiration Date Visits Requested Visits Authorized [id number] Authorized Specialty Services Required [phone] Question Answer Referral Priority Within 10 days (routine) Where should this appointment be scheduled? External Encounter Details Date Type Department Care Team (Late st Contact Info) Description 10/18/2024 Telephone Family Practice [facility] [address] [place] [address] Freda Curtis CRNP [address] [place] [address] Allergies Active Allergy Reactions Criticality Noted Date Comments Iodinated Contrast Media Anaphylaxis High 02/10/2021 Shrimp Flavor Agent (Non-Screening) Anaphylaxis High 02/10/2021 documented as of this encounter (statuses as of 11/25/2024) Medications oxygen IN GAS 2L during the day and 3L at night 1 Each 04/07/20 Active Spacer/Aero-Holding Chambers DeviceIndications:I LD (interstitial lung disease) ([facility]),Chronic respiratory failure with hypoxia ([facility]) Use with inhaler. 1 Each 04/13/20 Active guaiFENesin-Codeine 100-10 MG/5ML Oral Syrup (Robitussin AC)Indications:Team Leader clovis respiratory failure with hypoxia ([facility]) Take 5 mL by mouth every 4 hours as needed for Cough. 120 mL 04/13/20 Active Glucosamine 500 MG Oral CapsuleIndications: Primary osteoarthritis of hips, bilateral Take 1 Capsule by mouth in the morning and 1 Capsule before bedtime. 60 Capsule 06/26/20 Active Boost/Benefiber Oral LiquidIndications:H ealthcare maintenance Take 1 Box Dosing Unit by mouth in the morning and 1 Box Dosing Unit in the evening. Hold if having diarrhea. 7110 mL 07/24/20 Active OneTouch Verio In Vitro Strip (Glucose Blood)Indications:T ype 2 diabetes mellitus without complication, without long-term current use of insulin ([facility]) Use up to 3 times a day and as needed. 100 Strip 3 07/24/20 Active Acetaminophen 500 MG Oral Tablet (Tylenol)Indication s:Lumbar degenerative disc disease,Primary osteoarthritis of hips, bilateral Take 2 Tablets by mouth in the morning and 2 Tablets at noon and 2 Tablets before bedtime. 100 Tablet 07/24/20 Active Albuterol Sulfate HFA 108 (90 Base) MCG/ACT Inhalation Aerosol SolutionIndications :ILD (interstitial lung disease) ([facility]) Inhale 2 Puffs by mouth every 6 hours as needed for Cough, Shortness of Breath or Wheezing. 54 g 1 10/23/20 Active Ferrous Sulfate 325 (65 Fe) MG Oral Tablet (Feosol)Indications :Iron deficiency anemia Take 1 Tablet by mouth in the morning and 1 Tablet before bedtime. 10 Tablet 10/31/20 23 Active Fluticasone Propionate HFA 110 MCG/ACT Inhalation Aerosol (Flovent HFA)Indications:Chr onic respiratory failure with hypoxia (HCC) INHALE 2 PUFFS BY MOUTH EVERY DAY 12 g 11 01/30/20 24 Active Ferrous Sulfate 325 (65 Fe) MG Oral Tablet (Feosol) Take 1 Tablet by mouth in the morning and 1 Tablet before bedtime. 60 Tablet 11 01/30/20 24 Active Atorvastatin Calcium 10 MG Oral Tablet (Lipitor)Indication s:Dyslipidemia Take 1 Tablet by mouth in the morning. 5 Tablet 01/30/20 24 Active hydroCHLOROthiazide 25 MG Oral Tablet (Hydrodiuril)Indica tions:HTN, goal below 130/80 Take 2 Tablets by mouth in the morning. 10 Tablet 01/30/20 24 Active Levocetirizine Dihydrochloride 5 MG Oral TabletIndications:S easonal allergic rhinitis due to pollen TAKE ONE TAB BY MOUTH DAILY FOR ALLERGIES 5 Tablet 01/30/20 24 Active Losartan Potassium 100 MG Oral Tablet (Cozaar)Indications :HTN, goal below 130/80 Take 1 Tablet by mouth in the morning. 5 Tablet 01/30/20 24 Active metFORMIN HCl 1000 MG Oral Tablet (Glucophage)Indicat ions:Type 2 diabetes mellitus with hemoglobin A1c goal of less than 8.0% ([facility]) Take 1 Tablet by mouth 2 times a day with morning and evening meals. 10 Tablet 01/30/20 24 Active Tamsulosin HCl 0.4 MG Oral Capsule (Flomax)Indications :BPH with obstruction/lower urinary tract symptoms Take 1 Capsule by mouth in the morning. 5 Capsule 01/30/20 24 Active Vitamin C 1000 MG Oral TabletIndications:H ealthcare maintenance Take 1 Tablet by mouth in the morning. 30 Tablet 11 01/30/20 24 Active Trulicity 0.75 MG/0.5ML Subcutaneous Solution Pen-injector (Dulaglutide)Indica tions:Type 2 diabetes mellitus without complication, without long-term current use of insulin (HCC) INJECT 0.75MG UNDER THE SKIN ONE TIME PER WEEK 9 mL 1 04/08/20 24 Active Ipratropium [place] 0.03 % Nasal Solution (Atrovent) Administer 2 Sprays into each nostril 2 times a day as needed for Rhinitis. 30 mL 12 04/26/20 24 Active Vitamin C 500 MG Oral Tablet Chewable Take 2 Tablets by mouth in the morning. 90 Tablet 3 06/19/20 24 Active oxygen IN GASIndications:Supp lemental oxygen dependent 3 L/min during the day & 4 L/min at bedtime 1 Each 06/25/20 24 Active Saline [place] 0.65 % Nasal Solution ([place]) Administer 1 [place] into nostril as needed for Congestion. 30 mL 12 09/09/20 24 Active Azelastine HCl 137 MCG/SPRAY Nasal SolutionIndications :Seasonal allergic rhinitis due to pollen INSTILL 1 SPRAY INTO EACH NOSTRIL EVERY MORNING AND AT BEDTIME FOR ALLERGIES *MAY SELF ADMINISTER AND KEEP IN ROOM* 30 mL 11 09/09/20 24 Active Fluticasone Propionate 50 MCG/ACT Nasal Suspension (Flonase)Indication s:Seasonal allergic rhinitis due to pollen INSTILL 2 SPRAYS INTO EACH NOSTRIL EVERY DAY FOR ALLERGIES *MAY SELF ADMINISTER AND KEEP IN ROOM* 16 g 11 09/09/20 24 Active Vitamin C (Calcium Ascorbate) Oral Solution ReconstitutedIndica tions:ILD (interstitial lung disease) ([facility]) Take 500 mg by mouth every evening. 480 g 1 10/02/20 24 Active Triamcinolone Acetonide 55 MCG/ACT Nasal Aerosol (Nasacort Allergy 24HR) Administer 2 Sprays into nostril in the morning and 2 Sprays before bedtime. 16.9 mL 6 10/04/20 24 Active Omeprazole 20 MG Oral Capsule Delayed Release (PriLOSEC)Indicatio ns:Dysphagia, unspecified type Take 1 Capsule by mouth in the morning. 1 hour before the first meal of the day. 30 Capsule 5 10/11/20 24 Active documented as of this encounter (statuses as of 11/25/2024) Active Problems Problem Noted Date Diagnosed Date Supplemental oxygen dependent 09/25/2023 Sick sinus syndrome 08/10/2023 Lumbar degenerative disc disease 03/14/2023 Type 2 diabetes mellitus wit h hemoglobin A1c goal of less than 8.0% 02/02/2023 1st degree AV block 02/02/2023 HTN, goal below 130/80 11/22/2022 Dyslipidemia 11/22/2022 Primary osteoarthritis of hips, bilateral 2022 BPH with obstruction/lower urinary tract symptom s 11/22/2022 Chronic respiratory failure with hypoxia 023 PHT (pulmonary hypertension) 11/08/2022 ILD (interstitial lung disease) 11/08/2022 documented as of this encounter (statuses as of 11/25/2024) Resolved Problems Problem Noted Date Diagnosed Date Resolved Date PAC (premature atrial contraction) 02/02/2023 08/10/2023 RBBB 02/02/2023 08/10/2023 Type 2 diabetes mellitus wit hout complication, without long-term current use of insulin 11/22/2022 08/10/2023 Spondylosis of lumbar region without myelopathy or radiculopathy 11/22/2022 03/14/2023 SOB (shortness of breath) 11/08/2022 documented as of this encounter (statuses as of 11/25/2024) Immunizations Name Administration Dates Next Due COVID-19 mRNA, LNP-s, No Pre serve, 2-Dose Series (Moderna) 01/07/2021,12/10/2020 COVID-19, mRNA, LNP-s, PF, B ooster, 100mcg/0.5mg (Moderna) 04/20/2022,09/10/2021 Pneumococcal Conjugate Vaccine, 20-valent (Prevn ar20) 04/13/2023 Seasonal Influenza, High Dos e, Trivalent, PF, IM (Fluzone HD) 09/09/2024 Seasonal Influenza, Quadrivalent Hd (Fluzone Hd) 07/23/2022 documented as of this encounter Social History Tobacco Use Types Packs/Day Years Used Date Smoking Tobacco: Never Smokeless Tobacco: Never Alcohol Use Standard Drinks/Week Comments Never 0 (1 standard drink = 0.6 oz pur e alcohol) PHQ-2 Answer Date Recorded PHQ Adult Total Score 0 04/13/2023 Hunger Vital Sign Answer Date Recorded Within the past 12 months, y ou worried that your food would run out before you got the money to buy more. Never true 03/14/20 23 Within the past 12 months, t he food you bought just didn't last and you didn't have money to get more. Never true 03/14/2023 Sex and Gender Information Value Date Recorded Sex Assigned at Male 11/20/2022 12:54 PM EST Legal Sex Male 10:34 AM EDT Gender Identity Male 11/20/2022 12:54 PM EST Sexual Orientation Straight 11/20/2022 12 :54 PM EST documented as of this encounter Miscellaneous Notes * Telephone Encounter - Krupa Dominguez LPN - 10/23/2024 1:24 PM EST Attempted to call patient, there was no answer, left voicemail. When patient returns call, ok for NICHOLE to relay message, please refer to below documentation. If needed, can transfer to dedicated nurse line. * Telephone Encounter - Freda Curtis CRNP - 10/22/2024 4:02 PM EST Signed Also placed recheck labs in 4-6 weeks to see if any improvement in sodium. Please have them notify office if he does not seem to improve with the fluid restriction and PT * Telephone Encounter - Vanessa Suárez LPN - 10/21/2024 3:48 PM EST Called and spoke with Blake, son. Asking for PT order for ROM and to get father "up and moving" Agreeable to fluid restriction trial but will need order sent to Freda at [facility]. Please advise on PT, if agreeable * Telephone Encounter - Freda Curtis CRNP - 10/18/2024 1:59 PM EST Labs show low sodium which can cause some weakness/ muscle fatigue. No signs of worsening anemia. He could trial a fluid restriction of no more than 1000mL (30-40 ounces) of water/fluid per day andsee if this helps at all. documented in this encounter Plan of Treatment Upcoming Encounters Date Type Department Care Team (Late st Contact Info) Description 12/24/2024 9:20 AM EST Office Visit Family Practice [facility] [address] [place] [address] Samuel Chauhan MD [address] [place] [address] 03/07/2025 10:00 AM EDT Imaging Radiology [facility] [address] [id number] 03/10/2025 10:00 AM EDT Office Visit Pulmonary Medicine, [facility] [address] [place] [address] Yannick Morales MD [address] [place] [address] Scheduled Orders Name Type Priority Associated Diagnoses Orde r Schedule BASIC METABOLIC PANEL Lab Routine Hyponatremia Expected: 10/22/2024 (Approximate), Expires: 10/22/2025 Scheduled Referrals Name Type Priority Associated Diagnoses Orde r Schedule PHYSICAL THERAPY REFERRAL OP Referral Within 10 days (routine) Ambulatory dysfunction Ordered: 10/22/2024 Health Maintenance Due Date Last Done Comments DTap/Tdap Vaccines (1 - Tdap) 1954 Zoster Vaccines (1 of 2) 1986 Adult Wellness Visit 2002 Albumin/Creatinine Ratio 11/22/2023 11/22/2022 Depression Screening 04/13/2024 04/13/2023 Diabetic Foot Exam 04/13/2024 04/13/2023 HbA1c 04/23/2024 10/23/2023, 11/22/2022 COVID-19 Vaccine ( season) 2024 08/14/2023, 04/20/2022, 09/10/2021, Additional history exists Diabetic Eye Exam 07/24/2024 07/24/2023, , 07/24/2023, Additional history exists Pneumococcal Vaccine: 50+ Years Completed 04/13/2023, 08/03/2016 Influenza Vaccine (FLU shot) Completed 02/2024, 07/06/2023, 07/23/2022, Additional history exists HPV (Gardasil) Vaccine Aged Out No lo nger eligible based on patient's age to complete this topic Hepatitis B Vaccine Aged Out No longe r eligible based on patient's age to complete this topic MENINGOCOCCAL (MENACTRA/MENVEO) Aged Out No longer eligible based on patient's age to complete this topic documented as of this encounter Medical Devices Implanted Type Area Building Services Supervisor Device Identifier Shelf Expiration Date Model / Serial / Lot Lens Intraoc 14.0 - [id number] - [id number] Implanted:Qty: 1 on 02/18/2021 by Kevan Rocha MD at OR [facility] Right: Eye [employer] 09/05/2025 [id number] / [id number] / [id number] documented as of this encounter Visit Diagnoses Diagnosis Hyponatremia- Primary Hyposmolality and/or hyponatremia Ambulatory dysfunction documented in this encounter Advance Directives Documents on File Type Date Recorded Patient Machine Grainer Expl anation POLST 05/29/2022 [facility] FOR LIFE-SUSTAINING TREATMENT Advance Directives and Living Will 08/17/2018 ADVANCE DIRECTIVE / LIVING WILL Power of Track Greaser 08/17/2018 POWER OF A TTORNEY Power of Track Greaser 08/17/2018 FINANCIAL POWER OF DOCUMENT MANAGER Care Teams Bike Assembler Relationship Specialty Start Date End Date Samuel Chauhan MD [address] [place] [address] PCP - General Family Medicine 08/28/23 documented as of this encounter
--- OUTSIDE RECORDS SUMMARY | 2024-12-05 17:49 | External Medical Summary | Summary of Care ---
Author Name Unknown Organization [facility] Address [address] [facility] [place] [address] Phone [phone] Care Team Providers Care Mixer Machine Feeder Name Role Phone Samuel Chauhan MD Primary Care Provider [phone] Encounter Details Date Type Department Care Team (Late st Contact Info) Description 11/28/2024 Population Health External Data Unspecified Department Allergies Active Allergy Reactions Criticality Noted Date Comments Iodinated Contrast Media Anaphylaxis High 02/10/2021 Shrimp Flavor Agent (Non-Screening) Anaphylaxis High 02/10/2021 documented as of this encounter (statuses as of 11/28/2024) Medications oxygen IN GAS 2L during the day and 3L at night 1 Each 04/07/20 23 Active Spacer/Aero-Holding Chambers DeviceIndications:I LD (interstitial lung disease) (HCC),Chronic respiratory failure with hypoxia (HCC) Use with inhaler. 1 Each 04/13/20 23 Active guaiFENesin-Codeine 100-10 MG/5ML Oral Syrup (Robitussin AC)Indications:Residential Program Worker clovis respiratory failure with hypoxia (HCC) Take 5 mL by mouth every 4 hours as needed for Cough. 120 mL 04/13/20 23 Active Glucosamine 500 MG Oral CapsuleIndications: Primary osteoarthritis of hips, bilateral Take 1 Capsule by mouth in the morning and 1 Capsule before bedtime. 60 Capsule 11 06/26/20 23 Active Boost/Benefiber Oral LiquidIndications:H ealthcare maintenance Take 1 Box Dosing Unit by mouth in the morning and 1 Box Dosing Unit in the evening. Hold if having diarrhea. 7110 mL 11 07/24/20 Active OneTouch Verio In Vitro Strip (Glucose Blood)Indications:T ype 2 diabetes mellitus without complication, without long-term current use of insulin (HCC) Use up to 3 times a day and as needed. 100 Strip 3 07/24/20 Active Acetaminophen 500 MG Oral Tablet (Tylenol)Indication s:Lumbar degenerative disc disease,Primary osteoarthritis of hips, bilateral Take 2 Tablets by mouth in the morning and 2 Tablets at noon and 2 Tablets before bedtime. 100 Tablet 07/24/20 23 Active Albuterol Sulfate HFA 108 (90 Base) MCG/ACT Inhalation Aerosol SolutionIndications :ILD (interstitial lung disease) ([facility]) Inhale 2 Puffs by mouth every 6 hours as needed for Cough, Shortness of Breath or Wheezing. 54 g 1 10/23/20 23 Active Ferrous Sulfate 325 (65 Fe) MG Oral Tablet (Feosol)Indications :Iron deficiency anemia Take 1 Tablet by mouth in the morning and 1 Tablet before bedtime. 10 Tablet 10/31/20 23 Active Fluticasone Propionate HFA 110 MCG/ACT Inhalation Aerosol (Flovent HFA)Indications:Chr onic respiratory failure with hypoxia ([facility]) INHALE 2 PUFFS BY MOUTH EVERY DAY 12 g 11 01/30/20 24 Active Ferrous Sulfate 325 (65 Fe) MG Oral Tablet (Feosol) Take 1 Tablet by mouth in the morning and 1 Tablet before bedtime. 60 Tablet 01/30/20 24 Active Atorvastatin Calcium 10 MG [...] hemoglobin A1c goal of less than 8.0% ([facility]) Take 1 Tablet by mouth 2 times [...] complication, without long-term current use of insulin ([facility]) INJECT 0.75MG UNDER THE SKIN ONE TIME PER WEEK 9 mL 1 04/08/20 24 Active Ipratropium [place] 0.03 % Nasal Solution (Atrovent) Administer 2 [...] bedtime 1 Each 06/25/20 24 Active Saline [place] 0.65 % Nasal Solution ([facility]) Administer 1 [place] into nostril as needed for Congestion. 30 [...] Oral Solution ReconstitutedIndica tions:ILD (interstitial lung disease) ([facility]) Take 500 mg by mouth every evening. [...] as of this encounter (statuses as of 11/28/2024) Active Problems Problem Noted Date Diagnosed Date [...] as of this encounter (statuses as of 11/28/2024) Resolved Problems Problem Noted Date Diagnosed Date Resolved Date PAC (premature atrial contraction) 02/02/2023 08/10/2023 RBBB 02/02/2023 08/10/2023 Type 2 diabetes mellitus wit hout complication, without long-term current use of insulin 11/22/2022 08/10/2023 Spondylosis of lumbar region without myelopathy or radiculopathy 11/22/2022 03/14/2023 SOB (shortness of breath) 11/08/2022 documented as of this encounter (statuses as of 11/28/2024) Immunizations Name Administration Dates Next Due COVID-19 [...] PM EST documented as of this encounter Plan of Treatment Upcoming Encounters Date Type Department Care Team (Late st Contact Info) Description 12/24/2024 9:20 AM EST Office Visit Family Practice [facility] [address] [place] [address] Samuel Chauhan MD [address] [place] [address] 03/07/2025 10:00 AM EDT Imaging Radiology [facility] [address] [place] [phone] 03/10/2025 10:00 AM EDT Office Visit Pulmonary Medicine, [facility] [address] [place] [address] Yannick Morales MD [address] [place] [address] Health Maintenance Due Date Last Done Comments [...] this encounter Medical Devices Implanted Type Area Manager Digital Device Identifier Shelf Expiration Date Model / Serial / Lot Lens Intraoc 14.0 - [id number] - [id number] Implanted:Qty: 1 on 02/18/2021 by Kevan Rocha MD at OR [facility] Right: Eye [employer] 09/05/2025 [id number] / [id number] / [id number] documented as of this encounter Advance Directives Documents on File Type Date Recorded Patient Senior Benefits Analyst Expl anation POLST 05/29/2022 [facility] FOR LIFE-SUSTAINING TREATMENT Advance Directives and Living Will 08/17/2018 ADVANCE DIRECTIVE / LIVING WILL Power of Director Product Safety 08/17/2018 POWER OF A TTORNEY Power of Director Product Safety 08/17/2018 FINANCIAL POWER OF KEY HOLDER Care Teams Mixer Machine Feeder Relationship Specialty Start Date End Date Samuel Chauhan MD [address] [place] [address] PCP - General Family Medicine 08/28/23 documented as of this encounter
--- OUTSIDE RECORDS SUMMARY | 2024-12-05 17:49 | External Medical Summary | Summary of Care ---
Author Name Unknown Organization [facility] Address [address] [place] [address] Phone [phone] Care Team Providers Care Educational Adviser Name Role Phone Samuel Chauhan MD Primary Care Provider [phone] Reason for Visit * Reason Onset Date Comments Fax 10/25/2024 Encounter Details Date Type Department Care Team (Late st Contact Info) Description 10/25/2024 Telephone Pulmonary Medicine, [facility] [address] [place] [address] Services, Scheduling [address] [place] [address] Fax Allergies Active Allergy Reactions Criticality Noted Date Comments Iodinated Contrast Media Anaphylaxis High 02/10/2021 Shrimp Flavor Anaphylaxis High 02/10/2021 documented as of this encounter (statuses as of 10/25/2024) Medications oxygen IN GAS 2L during the day and 3L at night 1 Each 04/07/20 23 Active Spacer/Aero-Holding Chambers DeviceIndications:I LD (interstitial lung disease) (HCC),Chronic respiratory failure with hypoxia (HCC) Use with inhaler. 1 Each 04/13/20 23 Active guaiFENesin-Codeine 100-10 MG/5ML Oral Syrup (Robitussin AC)Indications:Ux Interaction Designer clovis respiratory failure with hypoxia (HCC) Take [...] Inhalation Aerosol SolutionIndications :ILD (interstitial lung disease) (HCC) Inhale 2 Puffs by mouth every 6 [...] hemoglobin A1c goal of less than 8.0% (HCC) Take 1 Tablet by mouth 2 times [...] complication, without long-term current use of insulin ([facility]) INJECT 0.75MG UNDER THE SKIN ONE TIME PER WEEK 9 mL 1 04/08/20 24 Active Ipratropium [place] 0.03 % Nasal Solution (Atrovent) Administer 2 [...] bedtime 1 Each 06/25/20 24 Active Saline [place] 0.65 % Nasal Solution ([place]) Administer 1 [place] into nostril as needed for Congestion. 30 [...] Oral Solution ReconstitutedIndica tions:ILD (interstitial lung disease) (HCC) Take 500 mg by mouth every evening. [...] as of this encounter (statuses as of 10/25/2024) Active Problems Problem Noted Date Diagnosed Date [...] as of this encounter (statuses as of 10/25/2024) Resolved Problems Problem Noted Date Diagnosed Date Resolved Date PAC (premature atrial contraction) 02/02/2023 08/10/2023 RBBB 02/02/2023 08/10/2023 Type 2 diabetes mellitus wit hout complication, without long-term current use of insulin 11/22/2022 08/10/2023 Spondylosis of lumbar region without myelopathy or radiculopathy 11/22/2022 03/14/2023 SOB (shortness of breath) 11/08/2022 documented as of this encounter (statuses as of 10/25/2024) Immunizations Name Administration Dates Next Due COVID-19 [...] encounter Miscellaneous Notes * Telephone Encounter - Xochitl Soriano OSA - 10/25/2024 11:32 AM EST [employer] is needing a fax with the dx code for portable O2 please fax to [phone] documented in this encounter Plan of Treatment Upcoming Encounters Date Type Department Care Team (Late st Contact Info) Description 12/24/2024 9:20 AM EST Office Visit Family [facility] [address] [place] [address] Samuel Chauhan MD [address] [place] [address] 03/07/2025 10:00 AM EDT Imaging Radiology [facility] [address] [facility] [address] [place] [address] 03/10/2025 10:00 AM EDT Office Visit Pulmonary Medicine, [facility] [address] [place] [address] Yannick Morales MD [address] [facility] [place] [address] Health Maintenance Due Date Last Done Comments DTap/Tdap Vaccines (1 - Tdap) 1954 Zoster Vaccines (1 of 2) 1986 Adult Wellness Visit 2002 Albumin/Creatinine Ratio 11/22/2023 11/22/2022 Depression Screening 04/13/2024 04/13/2023 Diabetic Foot Exam 04/13/2024 04/13/2023 HbA1c 04/23/2024 10/23/2023, 11/22/2022 COVID-19 Vaccine ( season) 2024 08/14/2023, 04/20/2022, 09/10/2021, Additional history exists Diabetic Eye Exam 07/24/2024 07/24/2023, , 07/24/2023, Additional history exists Pneumococcal Vaccine: 65+ Years Completed 04/13/2023, 08/03/2016 Influenza Vaccine (FLU [...] this encounter Medical Devices Implanted Type Area Meteorology Faculty Member Device Identifier Shelf Expiration Date Model / Serial / Lot Lens Intraoc 14.0 - [id number] - [id number] Implanted:Qty: 1 on 02/18/2021 by Kevan Rocha MD at OR [facility] Right: Eye [employer] 09/05/2025 [id number] / [id number] / [id number] documented as of this encounter Advance Directives Documents on File Type Date Recorded Patient Pediatric Allergist Expl anation POLST 05/29/2022 [facility] FOR LIFE-SUSTAINING TREATMENT Advance Directives and Living Will 08/17/2018 ADVANCE DIRECTIVE / LIVING WILL Power of Size Painter 08/17/2018 POWER OF A TTORNEY Power of Size Painter 08/17/2018 FINANCIAL POWER OF VICE PRESIDENT OF ACADEMIC AFFAIRS Care Teams Educational Adviser Relationship Specialty Start Date End Date Samuel Chauhan MD [address] [place] [address] PCP - General Family Medicine 08/28/23 documented as of this encounter
--- OUTSIDE RECORDS SUMMARY | 2024-12-05 17:49 | External Medical Summary | Summary of Care ---
Author Name Unknown Organization [facility] Address [address] [place] [address] Phone [phone] Care Team Providers Care Supervisor Meter Shop Name Role Phone Samuel Chauhan MD Primary Care Provider [phone] Reason for Visit * Reason Onset Date Comments Fax 10/25/2024 Encounter Details Date Type Department Care Team (Late st Contact Info) Description 10/25/2024 Telephone Pulmonary Medicine, [facility] [address] [place] [address] Services, Scheduling [address] [place] [address] Fax Allergies Active Allergy Reactions Criticality Noted [...] Active guaiFENesin-Codeine 100-10 MG/5ML Oral Syrup (Robitussin AC)Indications:De Alcholizer clovis respiratory failure with hypoxia (HCC) Take [...] complication, without long-term current use of insulin ([facility]) INJECT 0.75MG UNDER THE SKIN ONE TIME PER WEEK 9 mL 1 04/08/20 24 Active Ipratropium R[place]on 0.03 % Nasal Solution (Atrovent) Administer 2 [...] bedtime 1 Each 06/25/20 24 Active Saline [place] 0.65 % Nasal Solution ([place]) Administer 1 [place] into nostril as needed for Congestion. 30 [...] encounter Miscellaneous Notes * Telephone Encounter - Raya Coleman LPN - 10/25/2024 12:06 PM EST Order with dx code has been faxed * Telephone Encounter - Xochitl Soriano OSA - 10/25/2024 11:32 AM EST [facility] is needing a fax with the dx code for portable O2 please fax to [phone] documented in this encounter Plan of Treatment Upcoming Encounters Date Type Department Care Team (Late st Contact Info) Description 12/24/2024 9:20 AM EST Office Visit Family Practice [facility] [address] [facility] [place] [address] Samuel Chauhan MD 132 [facility] [place] [address] 03/07/2025 10:00 AM EDT [facility] [address] [facility] [place] [address] 03/10/2025 10:00 AM EDT Office Visit Pulmonary Medicine, [facility] [address] [facility] [place] [address] Yannick Morales MD [address] [place] [address] Health Maintenance Due Date Last Done Comments [...] this encounter Medical Devices Implanted Type Area Precinct I Police Sergeant Device Identifier Shelf Expiration Date Model / Serial / Lot Lens Intraoc 14.0 - [id number] - [id number] Implanted:Qty: 1 on 02/18/2021 by Kevan Rocha MD at OR [facility] Right: Eye [employer] 09/05/2025 [id number] / [id number] / [id number] documented as of this encounter Advance Directives Documents on File Type Date Recorded Patient Shipping Receiving Manager Expl anation POLST 05/29/2022 [facility] FOR LIFE-SUSTAINING TREATMENT Advance Directives and Living Will 08/17/2018 ADVANCE DIRECTIVE / LIVING WILL Power of Detasseler 08/17/2018 POWER OF A TTORNEY Power of Detasseler 08/17/2018 FINANCIAL POWER OF LICENSING SERVICES CLERK Care Teams Supervisor Meter Shop Relationship Specialty Start Date End Date Samuel Chauhan MD [address] [place] [address] PCP - General Family Medicine 08/28/23 documented as of this encounter
--- OUTSIDE RECORDS SUMMARY | 2024-12-05 17:49 | External Medical Summary | Summary of Care ---
Author Name Unknown Organization [facility] Address [address] [place] [address] Phone [phone] Care Team Providers Care Closing Agent Name Role Phone Samuel Chauhan MD Primary Care Provider [phone] Reason for Referral * Ancillary Services (Within 3 days (urgent)) - Authorized Specialty Diagnoses / Procedures Referred By Contac t Referred To Contact Real Estate Portfolio Manager Diagnoses [place] (dyspnea on exertion) ILD (interstitial lung disease) ([facility]) Freda Curtis CRNP [address] [place] [address] Phone: tel: fax: Referral ID Status Reason Start Date Expiration Date Visits Requested Visits Authorized [id number] Authorized Ancillary Services Required 10/11/[phone] Question Answer Referral Priority Within 3 days (urgent) Where should this appointment be scheduled? Sandi Comments Is Patient homebound? Yes All sections of this form must be filled out completely. Forms with missing or illegible information will be returned for completion. This form should not be modified in any way. Forms that have been modified will be returned. This form may not be submitted by a home health agency. It must be complete and submitted by the ordering provider. One full business day lead time is required and service will be scheduled based on the next service day for the [facility] Home Phlebotomy does not service every geographical location on a daily basis. Contact [facility] Client Services at to find out service days for a specific location. Medical Laboratory [facility] Patient Name: Gaudencio Longo : 1935 Sex: male Address [address] [facility] [address] [facility] [address] Provider: @REF@? Samuel Chauhan MD? Diagnosis: (R06.09) [place] (dyspnea on exertion) (primary encounter diagnosis) (R13.10) Dysphagia, unspecified type (J84.9) ILD (interstitial lung disease) (HCC) Tests Requested CBC - once starting October 10, 2024 Encounter Details Date Type Department Care Team (Late st Contact Info) Description 10/11/2024 10:20 AM EST Telemedicine Family Practice [facility] [address] Fred[facility] CR[facility] [address] [facility] [address] [place] (dyspnea on exertion)*; Dysphagia, unspecified type; ILD (interstitial lung disease) (HCC) Allergies Active Allergy Reactions Criticality Noted Date Comments Iodinated Contrast Media Anaphylaxis High 02/10/2021 Shrimp Flavor Agent (Non-Screening) Anaphylaxis High 02/10/2021 documented as of this encounter (statuses as of 10/31/2024) Medications oxygen IN GAS 2L during the day and 3L at night 1 Each 04/07/20 23 Active Spacer/Aero-Holding Chambers DeviceIndications:I LD (interstitial lung disease) (HCC),Chronic respiratory failure with hypoxia (HCC) Use with inhaler. 1 Each 04/13/20 23 Active guaiFENesin-Codeine 100-10 MG/5ML Oral Syrup (Robitussin AC)Indications:Cowlman clovis respiratory failure with hypoxia (HCC) Take [...] if having diarrhea. 7110 mL 11 07/24/20 23 Active OneTouch Verio In Vitro Strip (Glucose [...] Inhalation Aerosol SolutionIndications :ILD (interstitial lung disease) ([facility]) Inhale 2 Puffs by mouth every 6 [...] (Flovent HFA)Indications:Chr onic respiratory failure with hypoxia ([facility]) INHALE 2 PUFFS BY MOUTH EVERY DAY [...] complication, without long-term current use of insulin ([facility]) INJECT 0.75MG UNDER THE SKIN ONE TIME PER WEEK 9 mL 1 04/08/20 24 Active Ipratropium [place] 0.03 % Nasal Solution (Atrovent) Administer 2 [...] bedtime 1 Each 06/25/20 24 Active Saline [place] 0.65 % Nasal Solution ([place]) Administer 1 [place] into nostril as needed for Congestion. 30 [...] ADMINISTER AND KEEP IN ROOM* 16 g 09/09/20 24 Active Vitamin C (Calcium Ascorbate) Oral Solution ReconstitutedIndica tions:ILD (interstitial lung disease) ([facility]) Take 500 mg by mouth every evening. [...] as of this encounter (statuses as of 10/31/2024) Active Problems Problem Noted Date Diagnosed Date [...] as of this encounter (statuses as of 10/31/2024) Resolved Problems Problem Noted Date Diagnosed Date Resolved Date PAC (premature atrial contraction) 02/02/2023 08/10/2023 RBBB 02/02/2023 08/10/2023 Type 2 diabetes mellitus wit hout complication, without long-term current use of insulin 11/22/2022 08/10/2023 Spondylosis of lumbar region without myelopathy or radiculopathy 11/22/2022 03/14/2023 SOB (shortness of breath) 11/08/2022 documented as of this encounter (statuses as of 10/31/2024) Immunizations Name Administration Dates Next Due COVID-19 [...] PM EST documented as of this encounter Progress Notes * Freda Curtis CRNP - 10/11/2024 10:40 AM EST Images from the original note were not included. History of Present Illness Gaudencio Longo is a 88 year old male that presents for No chief complaint on file. HPI Video visit with son blake He is resident at [facility] Fatigue and low energy more noticeable last 1-2 months Very significant decline - could be able to go to [employer], drive etc Now can't even walk 10 feet Some anemia noted last year - taking iron Stools have been thin and long and "stringy" within this time period Denies significant weight loss or decreased appetite He feels too tired to swallow sometimes Has to take very small bites and wash it down with liquids Current Outpatient Medications Medication Sig Dispense Refill Omeprazole 20 MG Oral Capsule Delayed Release (PriLOSEC) Take 1 Capsule by mouth in the morning. 1 hour before the first meal of the day. 30 Capsule 5 Triamcinolone Acetonide 55 MCG/ACT Nasal Aerosol (Nasacort Allergy 24HR) Administer 2 Sprays into nostril in the morning and 2 Sprays before bedtime. 16.9 mL 6 Vitamin C (Calcium Ascorbate) Oral Solution Reconstituted Take 500 mg by mouth every evening. 480 g1 Azelastine HCl 137 MCG/SPRAY Nasal Solution INSTILL 1 SPRAY INTO EACH NOSTRIL EVERY MORNING AND AT BEDTIME FOR ALLERGIES *MAY SELF ADMINISTER AND KEEP IN ROOM* 30 mL 11 Fluticasone Propionate 50 MCG/ACT Nasal Suspension (Flonase) INSTILL 2 SPRAYS INTO EACH NOSTRIL EVERY DAY FOR ALLERGIES *MAY SELF ADMINISTER AND KEEP IN ROOM* 16 g 11 Saline [place] 0.65 % Nasal Solution ([place]) Administer 1 [place] into nostril as needed for Congestion. 30 mL 12 oxygen IN GAS 3 L/min during the day & 4 L/min at bedtime 1 Each 0 Vitamin C 500 MG Oral Tablet Chewable Take 2 Tablets by mouth in the morning. 90 Tablet 3 Ipratropium [place] 0.03 % Nasal Solution (Atrovent) Administer 2 Sprays into each nostril 2 times a day as needed for Rhinitis. 30 mL 12 Trulicity 0.75 MG/0.5ML Subcutaneous Solution Pen-injector (Dulaglutide) INJECT 0.75MG UNDER THE SKIN ONE TIME PER WEEK 9 mL 1 Atorvastatin Calcium 10 MG Oral Tablet (Lipitor) Take 1 Tablet by mouth in the morning. 5 Tablet 0 Ferrous Sulfate 325 (65 Fe) MG Oral Tablet (Feosol) Take 1 Tablet by mouth in the morning and 1 Tablet before bedtime. 60 Tablet 11 Fluticasone Propionate HFA 110 MCG/ACT Inhalation Aerosol (Flovent HFA) INHALE 2 PUFFS BY MOUTH EVERY DAY 12 g 11 hydroCHLOROthiazide 25 MG Oral Tablet (Hydrodiuril) Take 2 Tablets by mouth in the morning. 10 Tablet 0 Levocetirizine Dihydrochloride 5 MG Oral Tablet TAKE ONE TAB BY MOUTH DAILY FOR ALLERGIES 5 Tablet 0 Losartan Potassium 100 MG Oral Tablet (Cozaar) Take 1 Tablet by mouth in the morning. 5 Tablet 0 metFORMIN HCl 1000 MG Oral Tablet (Glucophage) Take 1 Tablet by mouth 2 times a day with morning and evening meals. 10 Tablet 0 Tamsulosin HCl 0.4 MG Oral Capsule (Flomax) Take 1 Capsule by mouth in the morning. 5 Capsule 0 Vitamin C 1000 MG Oral Tablet Take 1 Tablet by mouth in the morning. 30 Tablet 11 Ferrous Sulfate 325 (65 Fe) MG Oral Tablet (Feosol) Take 1 Tablet by mouth in the morning and 1 Tablet before bedtime. 10 Tablet 0 Albuterol Sulfate HFA 108 (90 Base) MCG/ACT Inhalation Aerosol Solution Inhale 2 Puffs by mouth every 6 hours as needed for Cough, Shortness of Breath or Wheezing. 54 g 1 Acetaminophen 500 MG Oral Tablet (Tylenol) Take 2 Tablets by mouth in the morning and 2 Tablets at noon and 2 Tablets before bedtime. 100 Tablet 0 Boost/Benefiber Oral Liquid Take 1 Box Dosing Unit by mouth in the morning and 1 Box Dosing Unit inthe evening. Hold if having diarrhea. 7110 mL 11 OneTouch Verio In Vitro Strip (Glucose Blood) Use up to 3 times a day and as needed. 100 Strip 3 Glucosamine 500 MG Oral Capsule Take 1 Capsule by mouth in the morning and 1 Capsule before bedtime. 60 Capsule 11 guaiFENesin-Codeine 100-10 MG/5ML Oral Syrup (Robitussin AC) Take 5 mL by mouth every 4 hours as needed for Cough. 120 mL 0 Spacer/Aero-Holding Chambers Device Use with inhaler. 1 Each 1 oxygen IN GAS 2L during the day and 3L at night 1 Each 11 No current facility-administered medications for this visit. Physical Exam There were no vitals filed for this visit. Physical Exam Constitutional: General: He is not in acute distress. Neurological: Mental Status: He is alert and oriented to person, place, and time. Psychiatric: Behavior: Behavior normal. Thought Content: Thought content normal. Assessment and Plan [place] (dyspnea on exertion) - FECAL OCCULT BLOOD, EIA; Future - CBC WITH WBC DIFFERENTIAL; Future - HOME PHLEBOTOMY REFERRAL OP - IRON SCREEN, INCLUDING TIBC; Future - COMPREHENSIVE METABOLIC PANEL; Future Dysphagia, unspecified type - Omeprazole 20 MG Oral Capsule Delayed Release (PriLOSEC); Take 1 Capsule by mouth in the morning.1 hour before the first meal of the day. ILD (interstitial lung disease) (HCC) - FECAL OCCULT BLOOD, EIA; Future - CBC WITH WBC DIFFERENTIAL; Future - HOME PHLEBOTOMY REFERRAL OP - IRON SCREEN, INCLUDING TIBC; Future - COMPREHENSIVE METABOLIC PANEL; Future Wrap-Up Follow Up: Return if symptoms worsen or fail to improve. Time: I spent a total of 20-29 minutes (exact time 20 mins) on the date of service in preparation, delivery, and documentation of the care provided to Gaudencio Longo excluding any time spent in the performance of separately billed services. Telemedicine: Patient location: HOME. I was in a hospital or clinic location. After connecting through televideo,patient was verified with two unique identifiers. Patient (or authorized legal regional sales representative) was then informed that this was a Telemedicine visit and being conducted confidentially over secure lines. Methods to assure confidentiality were taken. Patient acknowledged consent and understanding of pr ivacy and security of the Telemedicine visit. The patient agreed to participate. documented in this encounter Plan of Treatment Upcoming Encounters Date Type Department Care Team (Late st Contact Info) Description 12/24/2024 9:20 AM EST Office Visit Family Practice [facility] [address] [facility] [place] [address] Samuel Chauhan MD 132 [facility] [place] [address] 03/07/2025 10:00 AM EDT Imaging Radiology [facility] [address] [place] [address] 03/10/2025 10:00 AM EDT Office Visit Pulmonary Medicine, [facility] [address] [facility] [place] [address] Yannick Morales MD [address] [place] [address] Scheduled Orders Name Type Priority Associated Diagnoses Orde r Schedule FECAL OCCULT BLOOD, EIA Lab Routine [place] (dyspnea on exertion) ILD (interstitial lung disease) (HCC) Expected: 10/11/2024 (Approximate), Expires: 10/11/2025 CBC WITH WBC DIFFERENTIAL Lab Routine [place] (dyspnea on exertion) ILD (interstitial lung disease) (HCC) Expected: 10/11/2024 (Approximate), Expires: 10/11/2025 IRON SCREEN, INCLUDING TIBC Lab Routine [place] (dyspnea on exertion) ILD (interstitial lung disease) (HCC) Expected: 10/11/2024 (Approximate), Expires: 10/11/2025 COMPREHENSIVE METABOLIC PANEL Lab Routine [place] (dyspnea on exertion) ILD (interstitial lung disease) (HCC) Expected: 10/11/2024 (Approximate), Expires: 10/11/2025 Scheduled Referrals Name Type Priority Associated Diagnoses Orde r Schedule HOME PHLEBOTOMY REFERRAL OP Referral Within 3 days (urgent) [place] (dyspnea on exertion) ILD (interstitial lung disease) (HCC) Ordered: 10/11/2024 Health Maintenance Due Date Last Done Comments [...] encounter Medical Devices Implanted Type Area Manager Interface Device Identifier Shelf Expiration Date Model / Serial / Lot Lens Intraoc 14.0 - [id number] - [id number] Implanted:Qty: 1 on 02/18/2021 by Kevan Rocha MD at OR [facility] Right: Eye [employer]OM[employer] 09/05/2025 [id number] / [id number] documented as of this encounter Visit Diagnoses Diagnosis [place] (dyspnea on exertion)- Primary Other dyspnea and respiratory abnormality Dysphagia, unspecified type ILD (interstitial lung disease) (HCC) Postinflammatory pulmonary fibrosis documented in this encounter Advance Directives Documents on File Type Date Recorded Patient Nurse Staff Expl anation POLST 05/29/2022 [facility] FOR LIFE-SUSTAINING TREATMENT Advance Directives and Living Will 08/17/2018 ADVANCE DIRECTIVE / LIVING WILL Power of Acid Patroller 08/17/2018 POWER OF A TTORNEY Power of Acid Patroller 08/17/2018 FINANCIAL POWER OF PRECISION AIRCRAFT STRUCTURE ASSEMBLER Care Teams Closing Agent Relationship Specialty Start Date End Date Samuel Chauhan MD [address] [facility] [place] [address] PCP - General Family Medicine 08/28/23 documented as of this encounter
--- OUTSIDE RECORDS SUMMARY | 2024-12-05 17:49 | External Medical Summary | Summary of Care ---
Author Name Unknown Organization [facility] Address [address] [place] [address] Phone [phone] Care Team Providers Care Distribution Center Administrator Name Role Phone Samuel Chauhan MD Primary Care Provider [phone] Reason for Visit * Reason Onset Date Comments Medication Question 10/04/2024 Encounter Details Date Type Department Care Team (Late st Contact Info) Description 10/04/2024 Telephone Family Practice [facility] [address] [place] [address] Samuel Chauhan MD [address] [place] [id number] Medication Question Allergies Active Allergy Reactions Criticality Noted Date Comments Iodinated Contrast Media Anaphylaxis High 02/10/2021 Shrimp Flavor Agent (Non-Screening) Anaphylaxis High 02/10/2021 documented as of this encounter (statuses as of 11/21/2024) Medications oxygen IN GAS 2L during the day and 3L at night 1 Each 04/07/20 23 Active Spacer/Aero-Holding Chambers DeviceIndications:I LD (interstitial lung disease) (HCC),Chronic respiratory failure with hypoxia (HCC) Use with inhaler. 1 Each 1 06/08/20 23 Active guaiFENesin-Codeine 100-10 MG/5ML Oral Syrup (Robitussin AC)Indications:Senior Facilities Manager clovis respiratory failure with hypoxia (HCC) Take 5 mL by mouth every 4 hours as needed for Cough. 120 mL 04/13/20 23 Active Glucosamine 500 MG Oral CapsuleIndications: Primary osteoarthritis of hips, bilateral Take 1 Capsule by mouth in the morning and 1 Capsule before bedtime. 60 Capsule 11 06/26/20 Active Boost/Benefiber Oral LiquidIndications:H ealthcare maintenance [...] 9 mL 1 04/08/20 24 Active Ipratropium [place] 0.03 % Nasal Solution (Atrovent) Administer 2 [...] bedtime 1 Each 06/25/20 24 Active Saline [place] 0.65 % Nasal Solution ([place]) Administer 1 [place] into nostril as needed for Congestion. 30 [...] Oral Solution ReconstitutedIndica tions:ILD (interstitial lung disease) ([facility]) Take 500 mg by mouth every evening. 480 g 1 10/02/20 24 Active Triamcinolone Acetonide 55 MCG/ACT Nasal Aerosol (Nasacort Allergy 24HR) Administer 2 Sprays into nostril in the morning and 2 Sprays before bedtime. 16.9 mL 6 10/04/20 24 Active documented as of this encounter (statuses as of 11/21/2024) Active Problems Problem Noted Date Diagnosed Date [...] as of this encounter (statuses as of 11/21/2024) Resolved Problems Problem Noted Date Diagnosed Date Resolved Date PAC (premature atrial contraction) 02/02/2023 08/10/2023 RBBB 02/02/2023 08/10/2023 Type 2 diabetes mellitus wit hout complication, without long-term current use of insulin 11/22/2022 08/10/2023 Spondylosis of lumbar region without myelopathy or radiculopathy 11/22/2022 03/14/2023 SOB (shortness of breath) 11/08/2022 documented as of this encounter (statuses as of 11/21/2024) Immunizations Name Administration Dates Next Due COVID-19 [...] encounter Miscellaneous Notes * Telephone Encounter - Quyen Meléndez, national opelint analyst - 10/04/2024 11:04 AM EST Marichuy from [facility] calling stating that they are unable to obtain the Vitamin C Oral Solution and is requesting script to be changed to 500 mg tablets. Please send new script to [facility] if approved Thank you, Quyen Meléndez Web Methods Developer [facility] 10/04/2024,11:09 AM documented in this encounter Plan of Treatment Upcoming Encounters Date Type Department Care Team (Late st Contact Info) Description 12/24/2024 9:20 AM EST Office Visit Family Practice [facility] [address] [place] [address] Samuel Chauhan MD [address] [place] [address] 03/07/2025 10:00 AM EDT Imaging Radiology [facility] [address] [facility] [address] [place] [id number] 03/10/2025 10:00 AM EDT Office Visit Pulmonary Medicine, [facility] [address] [place] [address] Yannick Morales MD [address] [place] [address] Health Maintenance Due Date Last Done Comments [...] this encounter Medical Devices Implanted Type Area Wallpaper Printer Device Identifier Shelf Expiration Date Model / Serial / Lot Lens Intraoc 14.0 - [id number] - [id number] Implanted:Qty: 1 on 02/18/2021 by Kevan Rocha MD at OR [facility] Right: Eye [employer] 09/05/2025 [id number] / [id number] / [id number] documented as of this encounter Advance Directives Documents on File Type Date Recorded Patient Experimental Preflight Mechanic Expl anation POLST 05/29/2022 [facility] FOR LIFE-SUSTAINING TREATMENT Advance Directives and Living Will 08/17/2018 ADVANCE DIRECTIVE / LIVING WILL Power of State Assessed Properties Director 08/17/2018 POWER OF A TTORNEY Power of State Assessed Properties Director 08/17/2018 FINANCIAL POWER OF HOT ROLL INSPECTOR Care Teams Distribution Center Administrator Relationship Specialty Start Date End Date Samuel Chauhan MD [address] [facility] [place] [address] PCP - General Family Medicine 08/28/23 documented as of this encounter
--- OUTSIDE RECORDS SUMMARY | 2024-12-05 17:50 | External Medical Summary | Summary of Care ---
Author Name Unknown Organization [facility] Address [address] [place] [address] Phone [phone] Care Team Providers Care Import/Export Analyst Name Role Phone Samuel Chauhan MD Primary Care Provider [phone] Reason for Visit * Reason Onset Date Comments Order Request 10/24/2024 Encounter Details Date Type Department Care Team (Late st Contact Info) Description 10/24/2024 Telephone Pulmonary Medicine, [facility] [address] [place] [address] Yannick Morales MD [address] [facility] [address] Order Request Allergies Active Allergy Reactions Criticality Noted Date Comments Iodinated Contrast Media Anaphylaxis High 02/10/2021 Shrimp Flavor Anaphylaxis High 02/10/2021 documented as of this encounter (statuses as of 10/24/2024) Medications oxygen IN GAS 2L during the day and 3L at night 1 Each 04/07/20 23 Active Spacer/Aero-Holding Chambers DeviceIndications:I LD (interstitial lung disease) (HCC),Chronic respiratory failure with hypoxia (HCC) Use with inhaler. 1 Each 04/13/20 23 Active guaiFENesin-Codeine 100-10 MG/5ML Oral Syrup (Robitussin AC)Indications:Lodging Facilities Attendant clovis respiratory failure with hypoxia (HCC) Take [...] long-term current use of insulin ([facility]) INJECT 0.75MG UNDER THE SKIN ONE TIME PER WEEK 9 mL 1 04/08/20 24 Active Ipratropium [place] 0.03 % Nasal Solution (Atrovent) Administer 2 [...] bedtime 1 Each 06/25/20 24 Active Saline [place] 0.65 % Nasal Solution ([place]) Administer 1 [place] into nostril as needed for Congestion. 30 [...] as of this encounter (statuses as of 10/24/2024) Active Problems Problem Noted Date Diagnosed Date [...] as of this encounter (statuses as of 10/24/2024) Resolved Problems Problem Noted Date Diagnosed Date Resolved Date PAC (premature atrial contraction) 02/02/2023 08/10/2023 RBBB 02/02/2023 08/10/2023 Type 2 diabetes mellitus wit hout complication, without long-term current use of insulin 11/22/2022 08/10/2023 Spondylosis of lumbar region without myelopathy or radiculopathy 11/22/2022 03/14/2023 SOB (shortness of breath) 11/08/2022 documented as of this encounter (statuses as of 10/24/2024) Immunizations Name Administration Dates Next Due COVID-19 [...] encounter Miscellaneous Notes * Telephone Encounter - Yannick Morales MD - 10/24/2024 1:51 PM EST New order with specific description has been placed. * Telephone Encounter - Raya Coleman LPN - 10/24/2024 1:44 PM EST Our office received a fax from [facility]. They received an order for continuous flow portable concentrator. Need a new order stating home fill with the tanks documented in this encounter Plan of Treatment Upcoming Encounters Date Type Department Care Team (Late st Contact Info) Description 12/24/2024 9:20 AM EST Office Visit Family Practice [facility] [address] [facility] [place] [address] Samuel Chauhan MD [address] [facility] [place] [address] 03/07/2025 10:00 AM EDT Imaging Radiology [facility] 1st [facility] [address] [facility] [place] [address] 03/10/2025 10:00 AM EDT Office Visit Pulmonary Medicine, [facility] [address] [facility] [place] [address] Yannick Morales MD [address] [place] [address] Health Maintenance Due Date Last Done Comments [...] this encounter Medical Devices Implanted Type Area Chemic Mangler Device Identifier Shelf Expiration Date Model / Serial / Lot Lens Intraoc 14.0 - [id number] - [id number] Implanted:Qty: 1 on 02/18/2021 by Kevan Rocha MD at OR [facility] Right: Eye [employer] 09/05/2025 [id number] / [id number] / [id number] documented as of this encounter Visit Diagnoses Diagnosis Chronic respiratory failure with hypoxia (HCC)- Primary Chronic respiratory failure documented in this encounter Advance Directives Documents on File Type Date Recorded Patient Fast Food Services Manager Expl anation POLST 05/29/2022 [facility] FOR LIFE-SUSTAINING TREATMENT Advance Directives and Living Will 08/17/2018 ADVANCE DIRECTIVE / LIVING WILL Power of Storeroom Clerk 08/17/2018 POWER OF A TTORNEY Power of Storeroom Clerk 08/17/2018 FINANCIAL POWER OF ORTHOPEDIC RADIOLOGIC TECHNOLOGIST Care Teams Import/Export Analyst Relationship Specialty Start Date End Date Samuel Chauhan MD [address] [place] [address] PCP - General Family Medicine 08/28/23 documented as of this encounter
--- OUTSIDE RECORDS SUMMARY | 2024-12-05 17:50 | External Medical Summary | Summary of Care ---
Author Name Unknown Organization [facility] Address [address] [place] [address] Phone [phone] Care Team Providers Care Brake Lining Curer Name Role Phone Samuel Chauhan MD Primary Care Provider [phone] Encounter Details Date Type Department Care Team (Late st Contact Info) Description 10/17/2024 Orders Only Family Practice [facility] [address] [facility] [place] [address] Freda Curtis CRNP [address] [place] [address] Allergies Active Allergy Reactions Criticality Noted Date Comments Iodinated Contrast Media Anaphylaxis High 02/10/2021 Shrimp Flavor Anaphylaxis High 02/10/2021 documented as of this encounter (statuses as of 10/17/2024) Medications oxygen IN GAS 2L during the day and 3L at night 1 Each 04/07/20 23 Active Spacer/Aero-Holding Chambers DeviceIndications:I LD (interstitial lung disease) (HCC),Chronic respiratory failure with hypoxia (HCC) Use with inhaler. 1 Each 04/13/20 23 Active guaiFENesin-Codeine 100-10 MG/5ML Oral Syrup (Robitussin AC)Indications:Offal Icer Poultry clovis respiratory failure with hypoxia (HCC) Take 5 mL by mouth every 4 hours as needed for Cough. 120 mL 04/13/20 23 Active Glucosamine 500 MG Oral CapsuleIndications: Primary osteoarthritis of hips, bilateral Take 1 Capsule by mouth in the morning and 1 Capsule before bedtime. 60 Capsule 06/26/20 23 Active Boost/Benefiber Oral LiquidIndications:H ealthcare maintenance Take 1 Box Dosing Unit by mouth in the morning and 1 Box Dosing Unit in the evening. Hold if having diarrhea. 7110 mL 07/24/20 23 Active OneTouch Verio In Vitro Strip (Glucose Blood)Indications:T ype 2 diabetes mellitus without complication, without long-term current use of insulin (HCC) Use up to 3 times a day and as needed. 100 Strip 3 07/24/20 23 Active Acetaminophen 500 MG Oral Tablet (Tylenol)Indication [...] complication, without long-term current use of insulin ([facility]) INJECT 0.75MG UNDER THE SKIN ONE TIME PER WEEK 9 mL 1 04/08/20 24 Active Ipratropium [place] 0.03 % Nasal Solution (Atrovent) Administer 2 [...] bedtime 1 Each 06/25/20 24 Active Saline [place] 0.65 % Nasal Solution ([place]) Administer 1 [place] into nostril as needed for Congestion. 30 [...] as of this encounter (statuses as of 10/17/2024) Active Problems Problem Noted Date Diagnosed Date [...] as of this encounter (statuses as of 10/17/2024) Resolved Problems Problem Noted Date Diagnosed Date Resolved Date PAC (premature atrial contraction) 02/02/2023 08/10/2023 RBBB 02/02/2023 08/10/2023 Type 2 diabetes mellitus wit hout complication, without long-term current use of insulin 11/22/2022 08/10/2023 Spondylosis of lumbar region without myelopathy or radiculopathy 11/22/2022 03/14/2023 SOB (shortness of breath) 11/08/2022 documented as of this encounter (statuses as of 10/17/2024) Immunizations Name Administration Dates Next Due COVID-19 [...] 9:20 AM EST Office Visit Family Practice [facility] [address] [place] [address] Samuel Chauhan MD [address] [place] [address] 03/07/2025 10:00 AM EDT Imaging Radiology [facility] 1st [facility] [address] [place] [address] 03/10/2025 10:00 AM EDT Office Visit Pulmonary Medicine, [facility] [address] [place] [address] Yannick Morales MD [address] [place] [address] Health Maintenance Due Date Last Done Comments [...] this encounter Medical Devices Implanted Type Area Garbage Worker Device Identifier Shelf Expiration Date Model / Serial / Lot Lens Intraoc 14.0 - [id number] - [id number] Implanted:Qty: 1 on 02/18/2021 by Kevan Rocha MD at OR [facility] Right: Eye [employer] 09/05/2025 [id number] / [id number] / [id number] documented as of this encounter Procedures Procedure Name Priority Date/Time Associated Diagnosis Comments CHEMISTRY-OUTSIDE Routine 10/16/2024 documented in this encounter Results * (ABNORMAL) CHEMISTRY-OUTSIDE (10/16/2024) Not all results display below - see scan for full detail OUTSIDE LAB (SEE SCANNED REPORT) Comment:SCAN INCLUDES - CMP, FE PANEL, CBCD CREATININE 0.76 0.6 - 1.4 MG/DL OUTSIDE LAB (SEE SCANNED REPORT) EGFR 86.99 OUTSIDE LA B (SEE SCANNED REPORT) POTASSIUM 3.9 3.5 - 5.1 MMOL/L OUTSIDE LAB (SEE SCANNED REPORT) GLUCOSE 105(A) 70 - 99 MG/DL OUTSIDE LAB (SEE SCANNED REPORT) HOURS FASTING OUTSID E LAB (SEE SCANNED REPORT) TRIGLYCERIDES-OUT SIDE LAB OUTSIDE LAB (SEE SCANNED REPORT) CHOLESTEROL-OUTSI DE LAB OUTSIDE LAB (SEE SCANNED REPORT) HDL-OUTSIDE LAB OUTS ANTWON LAB (SEE SCANNED REPORT) CHOL/HDL RATIO-OUTSIDE LAB OUTSIDE LA B (SEE SCANNED REPORT) LDL (CALCULATED)-OUTS ANTWON LAB OUTSIDE LAB (SEE SCANNED REPORT) LDL (DIRECT MEASURE)-OUTSIDE LAB OUTSIDE LAB (SEE SCANNED REPORT) HEMOGLOBIN, S0X-RISHMWL LAB OUTSIDE LAB (SEE SCANNED REPORT) PHOSPHORUS-OUTSID E LAB OUTSIDE LAB (SEE SCANNED REPORT) PTH-OUTSIDE LAB OUTS ANTWON LAB (SEE SCANNED REPORT) MICROALBUMIN RATIO-OUTSIDE LAB OUTSIDE LA B (SEE SCANNED REPORT) PROTEIN, UA-OUTSIDE LAB OUTSIDE LAB (SEE SCANNED REPORT) HGB 10.8(A) 14.0 - 18.0 G/DL OUTSIDE LAB (SEE SCANNED REPORT) 10/16/2024 us [facility] Final Resu lt OUTSIDE LAB (SEE SCANNED REPORT) documented in this encounter Advance Directives Documents on File Type Date Recorded Patient Budget Counselor Expl anation POLST 05/29/2022 [place] OR [facility] FOR LIFE-SUSTAINING TREATMENT Advance Directives and Living Will 08/17/2018 ADVANCE DIRECTIVE / LIVING WILL Power of Shopping Centre Manager 08/17/2018 POWER OF A TTORNEY Power of Shopping Centre Manager 08/17/2018 FINANCIAL POWER OF CLOTH INSPECTOR Care Teams Brake Lining Curer Relationship Specialty Start Date End Date Samuel Chauhan MD [address] [place] [address] PCP - General Family Medicine 08/28/23 documented as of this encounter
--- OUTSIDE RECORDS SUMMARY | 2024-12-05 17:50 | External Medical Summary | Summary of Care ---
Author Name Unknown Organization [facility] Address [address] [place] [address] Phone [phone] Care Team Providers Care Field Nurse Case Manager Name Role Phone Samuel Chauhan MD Primary Care Provider [phone] Reason for Visit * Reason Onset Date Comments Order Request 10/24/2024 Encounter Details Date Type Department Care Team (Late st Contact Info) Description 10/24/2024 Telephone Pulmonary Medicine, [facility] [address] [place] [address] Yannick Morales MD [address] [facility] [address] Order Request Allergies Active Allergy Reactions [...] Active guaiFENesin-Codeine 100-10 MG/5ML Oral Syrup (Robitussin AC)Indications:Restaurant Management Internship clovis respiratory failure with hypoxia (HCC) Take [...] complication, without long-term current use of insulin ([facility]) INJECT 0.75MG UNDER THE SKIN ONE TIME PER WEEK 9 mL 1 04/08/20 24 Active Ipratropium [place] 0.03 % Nasal Solution (Atrovent) Administer 2 [...] bedtime 1 Each 06/25/20 24 Active Saline [place] 0.65 % Nasal Solution ([place]) Administer 1 [place] into nostril as needed for Congestion. 30 [...] encounter Miscellaneous Notes * Telephone Encounter - Meghna Huddleston OSA - 10/25/2024 10:33 AM EST Order uploaded to [facility] order that is currently active. * Telephone Encounter - Yannick Morales MD - 10/24/2024 1:51 PM EST New order with specific description has been placed. * Telephone Encounter - Raya Coleman LPN - 10/24/2024 1:44 PM EST Our office received a fax from . They received an order for continuous flow portable concentrator. Need a new order stating home fill with the tanks documented in this encounter Plan of Treatment Upcoming Encounters Date Type Department Care Team (Late st Contact Info) Description 12/24/2024 9:20 AM EST Office Visit Family Practice [facility] [address] [facility] [place] [address] Samuel Chauhan MD [address] [facility] [place] [address] 03/07/2025 10:00 AM EDT Imaging Radiology [facility] 1st Floor, [place] [address] [facility] [place] [address] 03/10/2025 10:00 AM EDT Office Visit Pulmonary Medicine, [facility] [address] [facility] [place] [address] Yannick Morales MD [address] [facility] [address] Health Maintenance Due Date Last Done Comments [...] this encounter Medical Devices Implanted Type Area Dry Primer Powder Blender Device Identifier Shelf Expiration Date Model / Serial / Lot Lens Intraoc 14.0 - [id number] - [id number] Implanted:Qty: 1 on 02/18/2021 by Kevan Rocha MD at OR [facility] Right: Eye [employer] 09/05/2025 [id number] / [id number] / [id number] documented as of this encounter Visit Diagnoses Diagnosis Chronic respiratory failure with hypoxia (HCC)- Primary Chronic respiratory failure documented in this encounter Advance Directives Documents on File Type Date Recorded Patient Set Designer Expl anation POLST 05/29/2022 [facility] FOR LIFE-SUSTAINING TREATMENT Advance Directives and Living Will 08/17/2018 ADVANCE DIRECTIVE / LIVING WILL Power of Tool Die Maker 08/17/2018 POWER OF A TTORNEY Power of Tool Die Maker 08/17/2018 FINANCIAL POWER OF SQL DATABASE ADMINISTRATOR Care Teams Field Nurse Case Manager Relationship Specialty Start Date End Date Samuel Chauhan MD [address] [place] [address] PCP - General Family Medicine 08/28/23 documented as of this encounter
[2024-12-05] MEDS: cefTRIAXone SODIUM 2,000 MG/50 ML BAG IV SCH (18:19)
[2024-12-05] MEDS: AZITHROMYCIN 250 MG TAB PO ONE (18:20)
[2024-12-05] MEDS: INSULIN ASPART PER UNIT CHARGE SC SCH (18:39)
[2024-12-05 18:52] LABS: Appearance Urine Clear (Clear); Bacteria Urine Automated None Seen (None Seen); Bilirubin Urine Negative (Negative); Blood Urine Negative (Negative); Cast Urine Automated 0-2 /lpf (0-2); Color Urine Yellow; Epithelial Cell Urine Auto 0-2 /hpf (0-2); Glucose Urine UA Negative (Negative); Ketones Urine Trace (Negative); Leukocyte Esterase Urine Negative (Negative); Nitrite Urine Negative (Negative); Protein Urine 1+ (Negative); Specific Gravity Urine 1.016 (1.000-1.030); Urobilinogen Urine Negative (Negative); WBC Urine Automated 0-5 /hpf (0-5); pH Urine 7.5 (4.5-7.5)
[2024-12-05] MEDS: ALBUT/IPRATROP 3MG/0.5MG NEB 3 ML VIAL NEB SCH (20:20)
[2024-12-05] MEDS: ATORVASTATIN 10 MG TAB PO SCH (21:24)
[2024-12-05] MEDS: MELATONIN 3 MG TAB PO SCH (21:24)
[2024-12-05] MEDS: OSELTAMIVIR PHOSPHATE SUSP 30 MG/5 ML UDP PO SCH (21:25)
[2024-12-05] MEDS: AZELASTINE HCL 0.1% NASAL 200 SPRAYS/27,400 MCG BTL SCH (21:26)
[2024-12-05] MEDS: BENZONATATE 100 MG CAPSULE PO ONE (22:49)
--- NOTE | 2024-12-05 23:05 | Communication Note ---
Date of Service: December 05, 2024 Patient with increasing O2 requirement, 80s on 6 L. Increased coughing fits productive of gómez sputum. Chest x-ray as per interpretation AP Worsening hypoxemic respiratory failure RLD/COPD exacerbation secondary to influenza Supplemental O2 Baseline VBG Doxycycline Steroid course, nebs RTC
[2024-12-05] MEDS: MAGNESIUM SULFATE / D5W 1 GM/100 ML BAG IV ONE (23:28)
[2024-12-05 23:30] LABS: Base Excess VBG 5.8 mEq/L; HCO3 VBG 33 mmol/L; PCO2 VBG 55 mmHg (38-50); PO2 VBG 55 mmHg; pH VBG 7.38 (7.36-7.41)
[2024-12-05] MEDS: DOXYCYCLINE HYCLATE 100 MG in DEXTROSE 5% MINI-B 100 ML IV STA (23:42)
[2024-12-05] MEDS: methylPREDNISolone 40 MG in SYRINGE 0 ML IV ONE (23:43)
--- NOTE | 2024-12-06 00:22 | XRay Report ---
Exam(s): XR CXR 1 VIEW EXAM: XR Chest, 1 View CLINICAL HISTORY: Reason for exam: low o2. TECHNIQUE: Frontal view of the chest. COMPARISON: Chest radiograph on 12/05/2024 FINDINGS: Hardware: None. Lungs/pleura: Similar opacities throughout the lungs. No pleural effusion or pneumothorax. Heart/mediastinum: Stable mild enlargement of the cardiac silhouette. Soft tissues: Unremarkable. Bones: No acute fracture. Upper abdomen: Normal. IMPRESSION: Similar opacities throughout the lungs. Electronically signed by: Felipe Azevedo M.D. 12/06/24 00:21 AM
[2024-12-06 06:38] LABS: BUN Creatinine Ratio 33.7 (10-20); Calcium 9.2 mg/dl (8.6-10.3); Creatinine Clr Calc Pharmacy 48.1 ml/min; Magnesium 1.3 mg/dl (1.7-2.4); Potassium 4.4 mmol/L (3.5-5.1)
[2024-12-06 06:49] LABS: Eosinophils # (auto) 0.01 K/uL (0.00-0.50); Eosinophils % (auto) 0.2 %; Hematocrit (blood only) 33.1 % (42.0-52.0); Hemoglobin 10.6 g/dl (14.0-18.0); Immature Granulocytes # (auto) 0.06 K/uL (0.01-0.20); Immature Granulocytes % (auto) 1.1 %; Lymphocytes # (auto) 0.75 K/uL (1.20-3.40); Lymphocytes % (auto) 13.8 %; Mean Corpuscular Hemoglobin 28.6 pg (25.0-34.0); Mean Corpuscular Volume 89.2 fL (80.0-100.0); Mean Platelet Volume 9.8 fL (9.4-12.4); Monocytes # (auto) 0.09 K/uL (0.11-0.59); Monocytes % (auto) 1.7 %; Neutrophils # (auto) 4.51 K/uL (1.40-6.50); Neutrophils % (auto) 83.2 %; Platelet Count 101 K/uL (130-400); RDW Coefficient of Variation 15.1 % (11.5-14.5); RDW Standard Deviation 49.2 fL (36.4-46.3); Red Blood Count 3.71 M/uL (4.70-6.10); White Blood Count 5.42 K/ul (4.8-10.8)
[2024-12-06 06:53] LABS: Thyroid Stimulating Hormone 0.762 uIu/ml (0.300-4.500)
[2024-12-06] MEDS: ALBUT/IPRATROP 3MG/0.5MG NEB 3 ML VIAL NEB SCH (07:29)
--- NOTE | 2024-12-06 07:47 | Pulmonary Consultation ---
Date of Consultation December 06, 2024 Assessment & Plan (1) Influenza A: (2) Acute on chronic respiratory failure with hypoxemia: (3) Interstitial lung disease: Plan CT chest 12/05/2024 personally reviewed: Centrilobular and paraseptal emphysema appreciated bilaterally There is increased reticular marking as well as traction bronchiectasis appreciated in the upper as well as lower lobes Honeycombing appreciated in the right lower lobe Cardiomegaly No significant mediastinal lymphadenopathy Spirometry 05/04/2023: Nonspecific spirometry with no obstruction, inclining towards moderate to severe restrictive lung dysfunction FVC 1.71 L 48%, FEV1 1.54 L 59%, FEV1/FVC 90 2D echo 12/05/2024: EF 60-65%, mild concentric LVH, PASP 79 mmHg, moderate TR, RV severely dilated with severely reduced function, grade 1 diastolic dysfunction --Acute on chronic hypoxic hypercapnic respiratory failure Likely from being influenza A positive. On the CT chest I do not see any definitive consolidative process Respiratory BioFire was positive for influenza A on 12/05/2024 Procalcitonin 0.05, nasal MRSA negative BNP 1562 --ILD with chronic hypoxic respiratory failure On 4 L at rest, 5 L on exertion Following up with [facility] pulmonary Autoimmune workup was negative for everything except for CAILIN 1:40, nuclear speckled Not on any antifibrinolytic's right now. His options going forward would be either Esbriet or Ofev He is already following up with pulmonary rehab with encouraged to continue with same --Severe pulmonary hypertension Combination of type II and type III Type III is likely from underlying ILD Patient does not seem to be in cor pulmonale Would recommend to keep the patient euvolemic. 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 Given the severe pulmonary hypertension keeping the patient euvolemic will be recommended Starting the patient on 20 mg of Lasix p.o. could be thought of Pulmonary will continue to follow Please note the above document was generated using voice recognition software. It may contain grammatical, syntax or spelling errors.Any formal questions or concerns about the content, text or information contained within the body of this dictation should be directly addressed to the provider for clarification. History of Present Illness Attending Physician: Jair Rosen MD History of Present Illness 88-year-old male coming to the hospital for shortness of breath Past medical history: ILD, pulmonary hypertension, chronic hypoxic respiratory failure on 4 L oxygen at rest and 5 L on exertion, hypertension, dyslipidemia, diabetes type 2, BPH, chronic hyponatremia Pulmonary consulted for abnormal chest CT At the time of examination patient was resting comfortably. He was not any respiratory distress He was saturating 100% on 5 L nasal cannula. He says that he has been having exertional shortness of breath which is associated with cough. When he brings up. It is mostly clean. No hemoptysis Denies any chest congestion. No chest pain. No dizziness, no headache No dysuria, diarrhea No fever or chills Denies any personal or family history of autoimmune disease like lupus, sarcoid, Sjogren's, rheumatoid Social history: Lifetime non-smoker. Used to work as a teacher Did not grow up on a farm Has a dog at home. No birds or poultry nearby. Para no history of ILD in the family Allergies Allergy/AdvReac Type Severity Reaction Status Date / Time Iodinated Contrast Media Allergy Severe Anaphylaxis Verified 08/03/23 23:12 shrimp Allergy Severe Anaphylaxis Verified 08/03/23 23:12 Home Medications Medication Instructions Recorded Confirmed Type Vivex Supplement 2 tab PO QAM 08/03/23 12/05/24 History acetaminophen 325 mg tablet 650 mg PO Q8 PRN Pain 08/03/23 12/05/24 History (Tylenol) albuterol sulfate 2.5 mg/3 mL 2.5 mg inhalation Q6H PRN 08/03/23 12/05/24 History (0.083 %) solution for nebulization Shortness Of Breath Or Wheezing albuterol sulfate 90 mcg/actuation 2 puff inhalation Q6 PRN .SOB, 08/03/23 12/05/24 History aerosol inhaler COUGH, WHEEZE ascorbic acid (vitamin C) 1,000 mg 500 g PO BID 08/03/23 12/05/24 History tablet (Vitamin C) atorvastatin 10 mg tablet 10 mg PO HS 08/03/23 12/05/24 History azelastine 137 mcg (0.1 %) nasal 1 spray intranasal AMHS 08/03/23 12/05/24 History spray dulaglutide 0.75 mg/0.5 mL 0.75 mg subcut .Q TUES 08/03/23 12/05/24 History subcutaneous pen injector (Trulicity) fluticasone propionate 110 2 puff inhalation QAM 08/03/23 12/05/24 History mcg/actuation HFA aerosol inhaler (Flovent HFA) fluticasone propionate 50 2 spray intranasal DAILY 08/03/23 12/05/24 History mcg/actuation nasal spray,suspension food supplemt, lactose-reduced 1 ea PO DAILY 08/03/23 12/05/24 History hydrochlorothiazide 50 mg tablet 50 mg PO DAILY 08/03/23 12/05/24 History levocetirizine 5 mg tablet 5 mg PO DAILY 08/03/23 12/05/24 History losartan 100 mg tablet 100 mg PO QAM 08/03/23 12/05/24 History metformin 500 mg tablet 1,000 mg PO BID 08/03/23 12/05/24 History tamsulosin 0.4 mg capsule 0.4 mg PO DAILY 08/03/23 12/05/24 History ferrous sulfate 325 mg (65 mg 325 mg PO BID 12/05/24 12/05/24 History iron) tablet ipratropium bromide 21 mcg (0.03 2 spray intranasal BID PRN 12/05/24 12/05/24 History %) nasal spray allergic rhinit omeprazole 20 mg tablet,delayed 20 mg PO DAILY 12/05/24 12/05/24 History release Patient History Medical History Hyponatremia Symptomatic anemia H/O: HTN (hypertension) HLD (hyperlipidemia) Surgical History No pertinent past surgical history Social History Smoking Status: Never smoker Hx Alcohol Use: No Hx Substance Use: No Preferred Language: Italian Communication Ability: Effective Set Decorator Required: No Beliefs That Will Affect Care: None Current Living Situation: Alone Current Living Situation Comment: living at [facility] Feels Safe at Home: Yes Safety Concerns: Feels Safe At This Time Assistive Devices: Cane and Oxygen - Continuous Review of Systems 2 Review of Systems: All systems reviewed & are unremarkable except as noted in HPI & below Physical Exam 2 Physical Exam: Constitutional: No acute distress HEENT: EOMI, PERRLA Respiratory system: Decreased air entry bilaterally, no wheeze, no rhonchi, positive Velcro-like crackles appreciated bilaterally anteriorly and posteriorly, more on the right side CVS: S1-S2 positive, no murmurs or gallops Abdomen: Soft, nontender, nondistended, positive bowel sounds x4 Extremities: +2 pulses bilaterally radialis/ dorsalis pedis, no cyanosis, no edema Neuro: Awake alert oriented x3 Psych: Normal mood and affect G/U: No [place] Skin: Positive purpura bilateral keita dorsal and ventral surfaces, nonblanching Lymphatic: no cervical or axillary lymphadenopathy Results & Data Results & Data Vital Signs (Past 12 Hours) Vital Signs Temp Pulse Pulse Resp BP Pulse Ox O2 Del Method 12/06/24 07:30 69 12 98 Nasal Cannula 12/06/24 07:22 83 12/06/24 03:32 37.1 C 95 H 20 93/62 L 99 Nasal Cannula 12/06/24 00:56 83 12/05/24 23:51 90 22 90 Nasal Cannula 12/05/24 23:43 36.6 C 92 H 20 97/62 L 90 Nasal Cannula 12/05/24 23:33 Nasal Cannula 12/05/24 20:22 90 22 88 L Nasal Cannula O2 Flow Rate 12/06/24 07:30 8 12/06/24 07:22 12/06/24 03:32 8 12/06/24 00:56 12/05/24 23:51 6 12/05/24 23:43 6 12/05/24 23:33 6 12/05/24 20:22 4 Laboratory Results 12/06/24 05:40 12/06/24 05:40 PG Care Time/CCT Total # of Minutes Spent Total Time Spent with Patient: Total time spent is greater than 50% in coordination of care (as documented) at patient's floor/unit and/or counseling patient: Coding Level of Care Code 74328 INT INP/OBS CARE 3/75MIN Diagnoses Influenza A J10.1 Acute on chronic respiratory failure with hypoxemia J96.21 Interstitial lung disease J84.9
[2024-12-06] MEDS: CETIRIZINE HCL 10 MG TABLET PO SCH (08:23)
[2024-12-06] MEDS: TAMSULOSIN HCL 0.4 MG CAP PO SCH (08:23)
[2024-12-06] MEDS: DOXYCYCLINE HYCLATE 100 MG CAP PO SCH (08:23)
[2024-12-06] MEDS: predniSONE 20 MG TAB PO SCH (08:23)
[2024-12-06] MEDS: ADVANCED PROBIOTIC 625 MG CAPSULE PO SCH (08:23)
[2024-12-06] MEDS: AZELASTINE HCL 0.1% NASAL 200 SPRAYS/27,400 MCG BTL SCH (08:24)
[2024-12-06] MEDS: FLUTICASONE FUROATE 200MCG 14 PUFFS/INHALER INH SCH (08:24)
[2024-12-06] MEDS: PANTOprazole 40 MG TAB PO SCH (08:24)
[2024-12-06] MEDS: LOSARTAN POTASSIUM 50 MG TAB PO SCH (08:24)
[2024-12-06] MEDS ORDERED: AZITHROMYCIN 250 MG TAB PO SCH (09:00)
[2024-12-06] MEDS ORDERED: FLUTICASONE HFA 110MCG INHALER INH SCH (09:00)
--- NOTE | 2024-12-06 11:54 | Hospitalist Progress Note ---
Date of Service December 06, 2024 Assessment & Plan (1) Generalized weakness: (2) Influenza A: (3) Interstitial lung disease: (4) Chronic respiratory failure with hypoxia: (5) Pneumonia: (6) Thrombocytopenia: Plan 88-year-old male who has a significant past medical history of interstitial lung disease, chronic respiratory failure with hypoxia on 4 L of oxygen at rest and 5 with exertion, T2DM, HTN, HLD, chronic hyponatremia, BPH, osteoarthritis who presents to ED secondary to generalized weakness and decline over a few months. He is being managed for the following: #Generalized weakness #Influenza A URTI #Chronic Hypoxic resp failure on 4L at rest/5L with exertion #ILD - follows Dr. 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 No definite evidence of pneumonia. c/w Jovita flu 12/05 for influenza c/w doxy for bronchitis, complained of greenish sputum c/w duoneb, lasix started for pul HTN. c/w pulmonary toilet with flutter, ISP Keep oxygen saturation around 90% given ILD, wean down O2 at tolerated to baseline O2. #Acute thrombocytopenia #lower extremity Petechial Rash rash present for 2 weeks VERIFICATION SPECIALIST 12/05 PBS reviewed, nonspecific. recommends IPF, sent 12/06, follow. B12 low normal at 183, start cyanocobalamin ? if related to underlying illness, follow plt closely #Chronic Hyponatremia Na 130 at presentation, appears to be chronically hyponatremic since 2021 on HCTZ 50mg daily, recommend d/c at discharge. Monitor BP for need for alternative. Na stable at 130 today. #Weight Loss/Generalized weakness: pt with 8kg weight loss since 08/2023, suspect related to chronic disease state poor appetite, consult donor recruitment manager. TSH wnl. pt/ot. #Poor Sleep hygiene: ends up sleeping during the day b/c he is up all night, will schedule melatonin, could consider remeron as it may help with appetite too if not improving #Stage I pressure ulcer, POA; change position every 2 hours Other chronic medical conditions: Continue with/resume home meds as and when able. Hypertension, stop hydrochlorothiazide see above. Continue to monitor blood pressure. Continue home losartan. T2DM: Hold metformin/Trulicity. Sliding scale insulin. DVT prophylaxis: Encourage ambulation. Low platelets/lower extremity petechiae. FULL CODE PCP: Tien as well as a Dr Torres at [facility] Dispo: admit to med tele, PT/OT consulted Admission and Anticipated Discharge Date Admission Date: December 05, 2024 Subjective Patient was seen and examined at bedside. Patient was sitting up in chair, on 7 L oxygen via nasal cannula, NAD, resting comfortably. Patient's son at bedside who was also updated on plan of care. Patient reports cough with greenish sputum since last 1 week, reports increased cough since about 6 months. Patient has poor appetite in general, has progressive weakness due to shortness of breath with exertion in the last 6 months. Patient denies sore throat or fever. Physical Exam Physical Exam: Constitutional: Elderly, Cachectic M, NAD, pleasant, conversing easily, on 7L O2 via NC. Head: Normocephalic, Atraumatic Eyes: PERRL, conjunctivae normal, anicteric sclerae ENMT: external ear and nose normal, oropharynx normal dry membranes Neck: trachea midline, no thyromegaly normal visual inspection Respiratory: normal respiratory effort, b/l mid and basal dry crackles, no wheeze, rales, rhonchi. Normal insp/exp effort, no accessory muscle use Cardiovascular: RRR, no edema Vessels: no JVD or carotid bruit Chest: normal inspection of chest Abdomen: normal bowel sounds, soft, nontender, no hepatosplenomegaly Musculoskeletal: no cyanosis or clubbing, extremities motor strength 5/5 Skin: B/l below the knee petechial rash b/l, warm and dry normal turgor , + b/l sacral erythema, R gluteal wound 3mm Neurologic: PERRL, EOMI, accommodation nl, no face palsy, no dysarthria CN's II-XI intact bilaterally and moves all extremities Psychiatric: A+Ox3, euthymic affect Lymphatic: no cervical or axillary lymphadenopathy : deferred Results & Data Results & Data Vital Signs (Past 12 Hours) Vital Signs Temp Pulse Pulse Resp BP BP Pulse Ox 12/06/24 11:24 36.8 C 78 20 111/76 95 12/06/24 10:51 76 16 98 12/06/24 09:43 12/06/24 07:56 36.4 C L 66 18 109/64 100 12/06/24 07:30 69 12 98 12/06/24 07:22 83 12/06/24 03:32 37.1 C 95 H 20 93/62 L 99 12/06/24 00:56 83 O2 Del Method O2 Flow Rate 12/06/24 11:24 Nasal Cannula 4 12/06/24 10:51 Nasal Cannula 7 12/06/24 09:43 Nasal Cannula 8 12/06/24 07:56 Nasal Cannula 6 12/06/24 07:30 Nasal Cannula 8 12/06/24 07:22 12/06/24 03:32 Nasal Cannula 8 12/06/24 00:56 (5) Pneumonia Laterality: unspecified laterality Lung location: unspecified part of lung Pneumonia type: due to unspecified organism Qualified Code(s): J18.9 - Pneumonia, unspecified organism
[2024-12-06] MEDS: CYANOCOBALAMIN (B-12) 500 MCG TABLET PO SCH (13:02)
[2024-12-06] MEDS: BENZONATATE 100 MG CAPSULE PO PRN (21:02)
[2024-12-07 06:48] LABS: Hematocrit (blood only) 31.4 % (42.0-52.0); Hemoglobin 10.1 g/dl (14.0-18.0); Mean Corpuscular Hemoglobin 28.5 pg (25.0-34.0); Mean Corpuscular Hgb Conc 32.2 g/dL (32.0-36.0); Mean Corpuscular Volume 88.7 fL (80.0-100.0); Mean Platelet Volume 9.4 fL (9.4-12.4); Platelet Count 101 K/uL (130-400); RDW Standard Deviation 49.1 fL (36.4-46.3); Red Blood Count 3.54 M/uL (4.70-6.10); White Blood Count 6.18 K/ul (4.8-10.8)
[2024-12-07 07:12] LABS: BUN Creatinine Ratio 40.7 (10-20); Calcium 9.3 mg/dl (8.6-10.3); Creatinine Clr Calc Pharmacy 59.5 ml/min; Magnesium 1.2 mg/dl (1.7-2.4); Phosphorus 2.9 mg/dl (2.5-4.9)
[2024-12-07] MEDS: LOSARTAN POTASSIUM 50 MG TAB PO SCH (09:08)
[2024-12-07] MEDS: guaiFENesin 600 MG TABCR PO SCH (09:11)
[2024-12-07] MEDS: MAGNESIUM SULFATE / D5W 1 GM/100 ML BAG IV SCH (11:06)
[2024-12-07] MEDS: FUROSEMIDE 20 MG TAB PO SCH (11:06)
--- NOTE | 2024-12-07 11:17 | Pulmonology Progress Note ---
Date of Service December 07, 2024 Assessment & Plan (1) Influenza A: (2) Acute on chronic respiratory failure with hypoxemia: (3) Interstitial lung disease: Plan CT chest 12/05/2024 personally reviewed: Centrilobular and paraseptal emphysema appreciated bilaterally There is increased reticular marking as well as traction bronchiectasis appreciated in the upper as well as lower lobes Honeycombing appreciated in the right lower lobe Cardiomegaly No significant mediastinal lymphadenopathy Spirometry 05/04/2023: Nonspecific spirometry with no obstruction, inclining towards moderate to severe restrictive lung dysfunction FVC 1.71 L 48%, FEV1 1.54 L 59%, FEV1/FVC 90 2D echo 12/05/2024: EF 60-65%, mild concentric LVH, PASP 79 mmHg, moderate TR, RV severely dilated with severely reduced function, grade 1 diastolic dysfunction --Acute on chronic hypoxic hypercapnic respiratory failure Likely from being influenza A positive. On the CT chest I do not see any definitive consolidative process Respiratory BioFire was positive for influenza A on 12/05/2024 Procalcitonin 0.05, nasal MRSA negative BNP 1562 --ILD with chronic hypoxic respiratory failure On 4 L at rest, 5 L on exertion Following up with [facility] pulmonary Autoimmune workup was negative for everything except for CAILIN 1:40, nuclear speckled Not on any antifibrinolytic's right now. His options going forward would be either Esbriet or Ofev He is already following up with pulmonary rehab with encouraged to continue with same --Severe pulmonary hypertension Combination of type II and type III Type III is likely from underlying ILD Patient does not seem to be in cor pulmonale Would recommend to keep the patient euvolemic. 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 I am not sure if adding nebulized steroid will make any difference in patient's breathing/ILD. Patient does not seem to be in fluid overload although his BNP is elevated. Given the severe pulmonary hypertension keeping the patient euvolemic will be recommended Lasix 20 mg p.o. [id number] will be followed up with close monitoring of creatinine function. Case was discussed with RN as well as primary team Please note the above document was generated using voice recognition software. It may contain grammatical, syntax or spelling errors.Any formal questions or concerns about the content, text or information contained within the body of this dictation should be directly addressed to the provider for clarification. Admission and Anticipated Discharge Date Admission Date: December 05, 2024 Subjective Patient seen and examined at bedside. No acute distress, no adverse events overnight Patient's son was also in the room at the time of examination. He was saturating 99% on 6 L nasal cannula, I went down to 4 L Occasional cough with clear phlegm. He was given Arnuity inhaler to be used in the hospital but even on explaining how to use it he was not able to use it appropriately Denied any nausea or vomiting. Appetite is coming back Overall patient says that he is feeling better compared to when he came to the hospital Review of Systems 2 Review of Systems: All systems reviewed & are unremarkable except as noted in Subjective Physical Exam 2 Physical Exam: Constitutional: No acute distress HEENT: EOMI, PERRLA Respiratory system: Decreased air entry bilaterally, no wheeze, no rhonchi, positive Velcro-like crackles appreciated bilaterally anteriorly and posteriorly, more on the right side CVS: S1-S2 positive, no murmurs or gallops Abdomen: Soft, nontender, nondistended, positive bowel sounds x4 Extremities: +2 pulses bilaterally radialis/ dorsalis pedis, no cyanosis, no edema Neuro: Awake alert oriented x3 Psych: Normal mood and affect G/U: No Granado Skin: Positive purpura bilateral keita dorsal and ventral surfaces, nonblanching Lymphatic: no cervical or axillary lymphadenopathy Results & Data Results & Data Vital Signs (Past 12 Hours) Vital Signs Temp Pulse Pulse Resp BP BP Pulse Ox 12/07/24 11:02 80 18 101/68 98 12/07/24 10:57 89 20 85 L 12/07/24 10:55 36.4 C L 18 94/63 L 91 12/07/24 08:11 36.3 C L 78 18 111/73 90 12/07/24 07:28 68 18 98 12/07/24 06:05 61 12/07/24 04:29 36.6 C 86 20 109/69 91 12/07/24 04:07 36.3 C L 85 20 108/67 91 12/07/24 00:47 76 O2 Del Method O2 Flow Rate 12/07/24 11:02 Nasal Cannula 6 12/07/24 10:57 Nasal Cannula 4 12/07/24 10:55 Nasal Cannula 6 12/07/24 08:11 Nasal Cannula 5 12/07/24 07:28 Nasal Cannula 8 12/07/24 06:05 12/07/24 04:29 High Flow Nasal Cannula 8 12/07/24 04:07 Free Flow/Blow-by 8 12/07/24 00:47 Laboratory Results 12/07/24 05:55 12/07/24 05:55 PG Care Time/CCT Total # of Minutes Spent Total Time Spent with Patient: Total time spent is greater than 50% in coordination of care (as documented) at patient's floor/unit and/or counseling patient: Coding Level of Care Code 90911 SUB INP/OBS CARE 3/50MIN Diagnoses Influenza A J10.1 Acute on chronic respiratory failure with hypoxemia J96.21 Interstitial lung disease J84.9
--- NOTE | 2024-12-07 16:11 | Hospitalist Progress Note ---
Date of Service December 07, 2024 Assessment & Plan (1) Generalized weakness: (2) Influenza A: (3) Interstitial lung disease: (4) Chronic respiratory failure with hypoxia: (5) Pneumonia: (6) Thrombocytopenia: Plan 88-year-old male who has a significant past medical history of interstitial lung disease, chronic respiratory failure with hypoxia on 4 L of oxygen at rest and 5 with exertion, T2DM, HTN, HLD, chronic hyponatremia, BPH, osteoarthritis who presents to ED secondary to generalized weakness and decline over a few months. He is being managed for the following: #Generalized weakness #Influenza A URTI #Chronic Hypoxic resp failure on 4L at rest/5L with exertion #ILD - follows Dr. 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 No definite evidence of pneumonia. c/w Jovita flu 12/05 for influenza c/w doxy for bronchitis, complained of greenish sputum REWORKER, now w/ clear sputu c/w duoneb, lasix started for pul HTN. MWF lasix 20 mg. c/w pulmonary toilet with flutter, ISP Keep oxygen saturation around 90% given ILD, wean down O2 at tolerated to baseline O2. Pul evaled, dc arnuity. #Acute thrombocytopenia #lower extremity Petechial Rash rash present for 2 weeks REWORKER 12/05 PBS reviewed, nonspecific. recommends IPF, sent 12/06, follow. B12 low normal at 183, c/w cyanocobalamin ? if related to current viral illness, need to f/u on cbc in a week time upon dc, explained to pt's son 12/07. Plt stable, labs in AM. #Chronic Hyponatremia Na 130 at presentation, appears to be chronically hyponatremic since 2021 on HCTZ 50mg daily, recommend d/c at discharge. Monitor BP for need for alternative. Na stable at 131 today. #Weight Loss/Generalized weakness: pt with 8kg weight loss since 08/2023, suspect related to chronic disease state poor appetite, consult concrete smoother. TSH wnl. pt/ot. #Poor Sleep hygiene: ends up sleeping during the day b/c he is up all night, will schedule melatonin, could consider remeron as it may help with appetite too if not improving #Stage I pressure ulcer, POA; change position every 2 hours Other chronic medical conditions: Continue with/resume home meds as and when able. Hypertension, stop hydrochlorothiazide see above. Continue to monitor blood pressure. Continue home losartan. losartan decreased to 50 mg daily as lasix added, see above. T2DM: Hold metformin/Trulicity. Sliding scale insulin. DVT prophylaxis: Encourage ambulation. Low platelets/lower extremity petechiae. FULL CODE PCP: [facility] as well as a Dr Torres at [facility] Dispo: admit to med tele, PT/OT consulted Disposition: Discussed with patient and his son at bedside regarding need for palliative care evaluation whether inpatient or outpatient. Patient reports feeling tired today and would like to go home tomorrow. Patient's son stated t hat he will have pt f/u w/ palliative care as an outpatient. Admission and Anticipated Discharge Date Admission Date: December 05, 2024 Subjective Patient was seen and examined at bedside. Patient was sitting up in chair, on 5L L oxygen via nasal cannula, NAD, resting comfortably. Patient's son at bedside who was also updated on plan of care. Patient reports cough with clear sputum now, reports appetite improving. Patient denies sore throat or fever. Overnight patient had coughing spells needing increased oxygen to 8 L. Patient was again reevaluated later in the day to see if he is willing to be discharged today, patient reports he had a coughing spell again and he feels tired and would like to go tomorrow. Physical Exam Physical Exam: Constitutional: Elderly, Cachectic M, NAD, pleasant, conversing easily, on 5L O2 via NC. Head: Normocephalic, Atraumatic Eyes: PERRL, conjunctivae normal, anicteric sclerae ENMT: external ear and nose normal, oropharynx normal dry membranes Neck: trachea midline, no thyromegaly normal visual inspection Respiratory: normal respiratory effort, b/l mid and basal dry crackles, no wheeze, rales, rhonchi. Normal insp/exp effort, no accessory muscle use Cardiovascular: RRR, no edema Vessels: no JVD or carotid bruit Chest: normal inspection of chest Abdomen: normal bowel sounds, soft, nontender, no hepatosplenomegaly Musculoskeletal: no cyanosis or clubbing, extremities motor strength 5/5 Skin: B/l below the knee petechial rash b/l, warm and dry normal turgor , + b/l sacral erythema, R gluteal wound 3mm Neurologic: PERRL, EOMI, accommodation nl, no face palsy, no dysarthria CN's II-XI intact bilaterally and moves all extremities Psychiatric: A+Ox3, euthymic affect Lymphatic: no cervical or axillary lymphadenopathy : deferred Results & Data Results & Data Vital Signs (Past 12 Hours) Vital Signs Temp Pulse Pulse Resp BP BP Pulse Ox 12/07/24 15:13 74 18 97 12/07/24 13:00 92 H 12/07/24 12:59 12/07/24 11:02 80 18 101/68 98 12/07/24 10:57 89 20 85 L 12/07/24 10:55 36.4 C L 18 94/63 L 91 12/07/24 08:11 36.3 C L 78 18 111/73 90 12/07/24 07:28 68 18 98 12/07/24 06:05 61 12/07/24 04:29 36.6 C 86 20 109/69 91 12/07/24 04:07 36.3 C L 85 20 108/67 91 O2 Del Method O2 Flow Rate 12/07/24 15:13 Nasal Cannula 5 12/07/24 13:00 12/07/24 12:59 High Flow Nasal Cannula 6 12/07/24 11:02 Nasal Cannula 6 12/07/24 10:57 Nasal Cannula 4 12/07/24 10:55 Nasal Cannula 6 12/07/24 08:11 Nasal Cannula 5 12/07/24 07:28 Nasal Cannula 8 12/07/24 06:05 12/07/24 04:29 High Flow Nasal Cannula 8 12/07/24 04:07 Free Flow/Blow-by 8 (5) Pneumonia Laterality: unspecified laterality Lung location: unspecified part of lung Pneumonia type: due to unspecified organism Qualified Code(s): J18.9 - Pneumonia, unspecified organism
[2024-12-08] MEDS: ALBUT/IPRATROP 3MG/0.5MG NEB 3 ML VIAL NEB PRN (02:24)
[2024-12-08 07:51] LABS: BUN Creatinine Ratio 46.2 (10-20); Calcium 9.5 mg/dl (8.6-10.3); Creatinine Clr Calc Pharmacy 61.8 ml/min; Magnesium 1.4 mg/dl (1.7-2.4); Phosphorus 3.3 mg/dl (2.5-4.9); Potassium 4.2 mmol/L (3.5-5.1)
[2024-12-08] MEDS: MAGNESIUM OXIDE 400 MG TAB PO SCH (09:54)
--- NOTE | 2024-12-08 12:43 | Pulmonology Progress Note ---
Date of Service December 08, 2024 Assessment & Plan (1) Influenza A: (2) Acute on chronic respiratory failure with hypoxemia: (3) Interstitial lung disease: Plan CT chest 12/05/2024 personally reviewed: Centrilobular and paraseptal emphysema appreciated bilaterally There is increased reticular marking as well as traction bronchiectasis appreciated in the upper as well as lower lobes Honeycombing appreciated in the right lower lobe Cardiomegaly No significant mediastinal lymphadenopathy Spirometry 05/04/2023: Nonspecific spirometry with no obstruction, inclining towards moderate to severe restrictive lung dysfunction FVC 1.71 L 48%, FEV1 1.54 L 59%, FEV1/FVC 90 2D echo 12/05/2024: EF 60-65%, mild concentric LVH, PASP 79 mmHg, moderate TR, RV severely dilated with severely reduced function, grade 1 diastolic dysfunction --Acute on chronic hypoxic hypercapnic respiratory failure Likely from being influenza A positive. On the CT chest I do not see any definitive consolidative process Respiratory BioFire was positive for influenza A on 12/05/2024 Procalcitonin 0.05, nasal MRSA negative BNP 1562 --ILD with chronic hypoxic respiratory failure On 4 L at rest, 5 L on exertion [facility] Autoimmune workup was negative for everything except for CAILIN 1:40, nuclear speckled Not on any antifibrinolytic's right now. His options going forward would be either Esbriet or Ofev He is already following up with pulmonary rehab with encouraged to continue with same --Severe pulmonary hypertension Combination of type II and type III Type III is likely from underlying ILD Patient does not seem to be in cor pulmonale Would recommend to keep the patient euvolemic. 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 Given the severe pulmonary hypertension keeping the patient euvolemic will be recommended Lasix 20 mg p.o. [id number] will be followed up with close monitoring of creatinine function. Outpatient follow-up with primary manager poker Case was discussed with primary team No further recommendation from pulmonary perspective, will sign off Please call directly with any questions Please note the above document was generated using voice recognition software. It may contain grammatical, syntax or spelling errors.Any formal questions or concerns about the content, text or information contained within the body of this dictation should be directly addressed to the provider for clarification. Admission and Anticipated Discharge Date Admission Date: December 05, 2024 Subjective Patient seen and examined at bedside. No acute distress, no adverse events overnight Patient was saturating 90% on 5 L nasal cannula Overall he stated that he is feeling better since he came to the hospital Occasional cough with clear phlegm. No hemoptysis No chest pain No unusual headache or blurry vision Review of Systems 2 Review of Systems: All systems reviewed & are unremarkable except as noted in Subjective Physical Exam 2 Physical Exam: Constitutional: No acute distress HEENT: EOMI, PERRLA Respiratory system: Decreased air entry bilaterally, no wheeze, no rhonchi, positive Velcro-like crackles appreciated bilaterally anteriorly and posteriorly, more on the right side CVS: S1-S2 positive, no murmurs or gallops Abdomen: Soft, nontender, nondistended, positive bowel sounds x4 Extremities: +2 pulses bilaterally radialis/ dorsalis pedis, no cyanosis, no edema Neuro: Awake alert oriented x3 Psych: Normal mood and affect G/U: No Granado Skin: Positive purpura bilateral keita dorsal and ventral surfaces, nonblanching Skin: no rashes, warm and dry Lymphatic: no cervical or axillary lymphadenopathy Results & Data Results & Data Vital Signs (Past 12 Hours) Vital Signs Temp Pulse Pulse Resp BP BP Pulse Ox 12/08/24 11:43 36.3 C L 86 20 101/71 94 12/08/24 10:36 72 18 92 12/08/24 07:58 36.5 C 98 H 20 97/62 L 88 L 12/08/24 07:22 68 20 94 12/08/24 05:44 90 12/08/24 04:47 36.5 C 92 H 20 99/65 L 91 12/08/24 02:24 83 18 91 12/08/24 02:00 36.6 C 78 22 96/65 L 91 O2 Del Method O2 Flow Rate 12/08/24 11:43 High Flow Nasal Cannula 5 12/08/24 10:36 Nasal Cannula 5 12/08/24 07:58 Nasal Cannula 4 12/08/24 07:22 Nasal Cannula 5 12/08/24 05:44 12/08/24 04:47 High Flow Nasal Cannula 5 02/02/25 02:24 Nasal Cannula 5 12/08/24 02:00 High Flow Nasal Cannula 5.5 Laboratory Results 12/07/24 05:55 12/08/24 06:47 PG Care Time/CCT Total # of Minutes Spent Total Time Spent with Patient: Total time spent is greater than 50% in coordination of care (as documented) at patient's floor/unit and/or counseling patient: Coding Level of Care Code 86709 SUB INP/OBS CARE 2/35MIN Diagnoses Influenza A J10.1 Acute on chronic respiratory failure with hypoxemia J96.21 Interstitial lung disease J84.9
--- NOTE | 2024-12-08 13:10 | Hospitalist Progress Note ---
Date of Service December 08, 2024 Assessment & Plan (1) Generalized weakness: (2) Influenza A: (3) Interstitial lung disease: (4) Chronic respiratory failure with hypoxia: (5) Pneumonia: (6) Thrombocytopenia: Plan 88-year-old male who has a significant past medical history of interstitial lung disease, chronic respiratory failure with hypoxia on 4 L of oxygen at rest and 5 with exertion, T2DM, HTN, HLD, chronic hyponatremia, BPH, osteoarthritis who presents to ED secondary to generalized weakness and decline over a few months. He is being managed for the following: #Generalized weakness #Influenza A URTI #Chronic Hypoxic resp failure on 4L at rest/5L with exertion #ILD - follows Dr. 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 No definite evidence of pneumonia. c/w Jovita flu 12/05 for influenza c/w doxy for bronchitis, complained of greenish sputum [employer], now w/ clear sputu c/w duoneb, lasix started for pul HTN. MWF lasix 20 mg. c/w pulmonary toilet with flutter, ISP Keep oxygen saturation around 90% given ILD, wean down O2 at tolerated to baseline O2. Plan to follow-up with his outpatient pulmonology at discharge. #Acute thrombocytopenia #lower extremity Petechial Rash rash present for 2 weeks [employer] 12/05 PBS reviewed, nonspecific. recommends IPF, sent 12/06, follow. B12 low normal at 183, c/w cyanocobalamin ? if related to current viral illness, need to f/u on cbc in a week time upon dc, explained to pt's son 12/07. #Chronic Hyponatremia Na 130 at presentation, appears to be chronically hyponatremic since 2021 on HCTZ 50mg daily, recommend d/c at discharge. Monitor BP for need for alternative. #Weight Loss/Generalized weakness: pt with 8kg weight loss since 08/2023, suspect related to chronic disease state poor appetite, consult vice president financial. TSH wnl. pt/ot. #Poor Sleep hygiene: Patient reports that he has not been able to sleep for several days. Requesting medication. Discussed possible side effects/adverse effects of Ambien; patient wants to try. Will start low-dose 2.5 mg at night. #Stage I pressure ulcer, POA; change position every 2 hours Other chronic medical conditions: Continue with/resume home meds as and when able. Hypertension, stop hydrochlorothiazide see above. Continue to monitor blood pressure. Continue home losartan. losartan decreased to 50 mg daily as lasix added, see above. T2DM: Hold metformin/Trulicity. Sliding scale insulin. DVT prophylaxis: Encourage ambulation. Low platelets/lower extremity petechiae. FULL CODE PCP: Tien as well as a Dr Torres at [facility] Dispo: admit to med tele, PT/OT consulted Time spent evaluating patient, direct bedside care, chart review, placing orders, interpretation of diagnostic studies, discussion with consultants, patient, and family members, as well as other required patient management activities is 50 minutes Please note the above document was generated using voice recognition software. It may contain grammatical, syntax or spelling errors. Any formal questions or concerns about the content, text or information contained within the body of this dictation should be directly addressed to the provider for clarification Admission and Anticipated Discharge Date Admission Date: December 05, 2024 Subjective Patient seen and examined at bedside He appears comfortable at rest. However, he becomes short of breath on minimal exertion Signs are stable and he is requiring oxygen via nasal cannula of 6 L/min Review of Systems Review of Systems: All systems reviewed & are unremarkable except as noted in Subjective Physical Exam Physical Exam: Constitutional: WD/WN, vitals as above, NAD, sitting up in bed, pleasant, conve rsing easily Respiratory: Bilateral coarse crackles present at bases Cardiovascular: RRR, no murmur, no edema Vessels: no JVD or carotid bruit Chest: normal inspection of chest Abdomen: normal bowel sounds, soft, nontender, no hepatosplenomegaly Musculoskeletal: no cyanosis or clubbing, extremities motor strength 5/5 Skin: no rashes, warm and dry normal turgor Neurologic: PERRL, EOMI, accommodation nl, no face palsy, no dysarthria CN's II- XI intact bilaterally and moves all extremities Psychiatric: A+Ox3, euthymic affect Results & Data Results & Data Vital Signs (Past 12 Hours) Vital Signs Temp Pulse Pulse Resp BP BP Pulse Ox 12/08/24 11:43 36.3 C L 86 20 101/71 94 12/08/24 10:36 72 18 92 12/08/24 07:58 36.5 C 98 H 20 97/62 L 88 L 12/08/24 07:22 68 20 94 12/08/24 05:44 90 12/08/24 04:47 36.5 C 92 H 20 99/65 L 91 12/08/24 02:24 83 18 91 12/08/24 02:00 36.6 C 78 22 96/65 L 91 O2 Del Method O2 Flow Rate 12/08/24 11:43 High Flow Nasal Cannula 5 12/08/24 10:36 Nasal Cannula 5 12/08/24 07:58 Nasal Cannula 4 12/08/24 07:22 Nasal Cannula 5 12/08/24 05:44 12/08/24 04:47 High Flow Nasal Cannula 5 12/08/24 02:24 Nasal Cannula 5 12/08/24 02:00 High Flow Nasal Cannula 5.5 (5) Pneumonia Laterality: unspecified laterality Lung location: unspecified part of lung Pneumonia type: due to unspecified organism Qualified Code(s): J18.9 - Pneumonia, unspecified organism
[2024-12-08] MEDS ORDERED: methylPREDNISolone 125 MG/2 ML VIAL IV STA (20:00)
[2024-12-08] MEDS: ZOLPIDEM TARTRATE 5 MG TAB PO SCH (20:33)
[2024-12-08] MEDS: OSELTAMIVIR PHOSPHATE 75 MG CAP PO SCH (20:35)
[2024-12-08] MEDS ORDERED: ZOLPIDEM TARTRATE 5 MG TAB PO SCH (21:00)
[2024-12-08] MEDS: methylPREDNISolone 40 MG in SYRINGE 0 ML IV STA (21:19)
[2024-12-09 06:34] LABS: Calcium 9.3 mg/dl (8.6-10.3); Creatinine Clr Calc Pharmacy 60.8 ml/min; Potassium 4.4 mmol/L (3.5-5.1)
[2024-12-09 06:41] LABS: Hematocrit (blood only) 31.2 % (42.0-52.0); Hemoglobin 10.1 g/dl (14.0-18.0); Mean Corpuscular Hemoglobin 28.4 pg (25.0-34.0); Mean Corpuscular Hgb Conc 32.4 g/dL (32.0-36.0); Mean Corpuscular Volume 87.6 fL (80.0-100.0); Mean Platelet Volume 9.8 fL (9.4-12.4); Platelet Count 93 K/uL (130-400); RDW Coefficient of Variation 15.2 % (11.5-14.5); RDW Standard Deviation 48.6 fL (36.4-46.3); Red Blood Count 3.56 M/uL (4.70-6.10); White Blood Count 6.12 K/ul (4.8-10.8)
[2024-12-09 06:47] LABS: Basophils # (auto) 0.01 K/uL (0.00-0.20); Basophils % (auto) 0.2 %; Immature Granulocytes # (auto) 0.12 K/uL (0.01-0.20); Lymphocytes # (auto) 0.82 K/uL (1.20-3.40); Lymphocytes % (auto) 13.4 %; Monocytes # (auto) 0.15 K/uL (0.11-0.59); Monocytes % (auto) 2.5 %; Neutrophils # (auto) 5.02 K/uL (1.40-6.50); Neutrophils % (auto) 81.9 %
[2024-12-09 12:57] VITALS: TEMP 97.3
--- NOTE | 2024-12-09 14:56 | Discharge Summary ---
Date of Service December 09, 2024 Admission HPI Per Admitting Provider This is a 88-year-old male who has a significant past medical history of interstitial lung disease, chronic respiratory failure with hypoxia on 4 L of oxygen at rest and 5 with exertion, T2DM, HTN, HLD, chronic hyponatremia, BPH, osteoarthritis who presents to ED secondary to generalized weakness and decline over a few months. History is provided by patient, son Blake at bedside as well as external chart review. Patient is currently in an assisted living facility and has been there for the last 9 months. Son reports up until 6 months ago patient was out driving. He reports over the last 2 months he has we nt from ambulatory to mostly only transferring to a wheelchair. Previously he was walking up to their dining area and currently he is requiring to be wheeled. He also feels he is, "wasting a way." Patient reports if the temperature is under 50 degrees he cannot go outside due to his lung condition. He reports chronic shortness of breath with even minimal exertion, but this is unchanged. He has a chronic productive cough with cardoso sputum. He has new red dots on his legs that have been present for the last 2 weeks. He denies any itching or pain with them. He does report swelling to his ankles when this rash started, but that has since subsided. He denies any fever, chills, sweats, lightheadedness, dizziness, chest pain, hemoptysis, nausea, vomiting, abdominal pain. Overall his appetite is diminished. He also reports poor sleep hygiene at night. 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 He understands the phase of life. He understands that he has less time here than previous. He denies overall being depressed as he feels he has a good understanding on how life works and understands his current phase of life. In ED patient was hemodynamically stable. He was saturating normal on 4 to 5 L of oxygen. Lab work notable for a sodium of 130, BUN 25, platelet count of 112. Chest x-ray concerning for pneumonia. His influenza A was positive. Admission Exam Per Admitting Provider Constitutional: Elderly, Cachectic M vitals as above, NAD, sitting up in bed, pleasant, conversing easily but tachypneic with conversation Head: Normocephalic, Atraumatic Eyes: PERRL, conjunctivae normal, anicteric sclerae ENMT: external ear and nose normal, oropharynx normal dry membranes Neck: trachea midline, no thyromegaly normal visual inspection Respiratory: normal respiratory effort, lungs clear to auscultation, no wheeze, rales, rhonchi. Normal insp/exp effort, no accessory muscle use Cardiovascular: RRR, no edema Vessels: no JVD or carotid bruit Chest: normal inspection of chest Abdomen: normal bowel sounds, soft, nontender, no hepatosplenomegaly Musculoskeletal: no cyanosis or clubbing, extremities motor strength 5/5 Skin: B/l below the knee petechial rash b/l, warm and dry normal turgor , + b/l sacral erythema, R gluteal wound 3mm Neurologic: PERRL, EOMI, accommodation nl, no face palsy, no dysarthria CN's II-XI intact bilaterally and moves all extremities Psychiatric: A+Ox3, euthymic affect Lymphatic: no cervical or axillary lymphadenopathy : deferred Principal Diagnosis #Generalized weakness #Influenza A URTI #Chronic Hypoxic resp failure on 4L at rest/5L with exertion #ILD - #Severe pul HTN, #Pneumonia Discharge Exam Constitutional: WD/WN, vitals as above, NAD, sitting up in bed, pleasant, conversing easily Respiratory: Bilateral coarse crackles present at bases Cardiovascular: RRR, no murmur, no edema Vessels: no JVD or carotid bruit Chest: normal inspection of chest Abdomen: normal bowel sounds, soft, nontender, no hepatosplenomegaly Musculoskeletal: no cyanosis or clubbing, extremities motor strength 5/5 Skin: no rashes, warm and dry normal turgor Neurologic: PERRL, EOMI, accommodation nl, no face palsy, no dysarthria CN's II- XI intact bilaterally and moves all extremities Psychiatric: A+Ox3, euthymic affect Discharge Data Allergies Allergy/AdvReac Type Severity Reaction Status Date / Time Iodinated Contrast Media Allergy Severe Anaphylaxis Verified 08/03/23 23:12 shrimp Allergy Severe Anaphylaxis Verified 08/03/23 23:12 Consultations 12/05/24 13:14 ED Decision to Admit Stat 12/05/24 20:02 Consult Pulmonology Routine Ordered Studies 12/05/24 14:14 CT chest without contrast [CT chest diagnostic wo con] Stat Hospital Course (1) Generalized weakness: (2) Influenza A: (3) Interstitial lung disease: (4) Chronic respiratory failure with hypoxia: (5) Pneumonia: (6) Thrombocytopenia: Plan 88-year-old male who has a significant past medical history of interstitial lung disease, chronic respiratory failure with hypoxia on 4 L of oxygen at rest and 5 with exertion, T2DM, HTN, HLD, chronic hyponatremia, BPH, osteoarthritis who presents to ED secondary to generalized weakness and decline over a few months. 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 No definite evidence of pneumonia. Respiratory viral panel positive for influenza A Pulmonology was consulted during the hospitalization for evaluation of progr essive interstitial lung disease. Echocardiogram showed severe pulmonary hypertension likely secondary to severe ILD. Patient was started on Lasix 20 mg for 3 days a week. At the time of the discharge, patient was requiring 6 L of oxygen at rest and on exertion. Follow-up appointment set up with primary care doctor and pulmonology. Thrombocytopeniafound to have vitamin B12 deficiency; started on cyanocobalamin. If it is persistent; will need hematology evaluation Chronic Hyponatremia- hydrochlorothiazide were discontinued. Urine studies suggestive of SIADH. Discussed fluid restriction; follow-up with PCP and obtain repeat BMP to ensure stabilization/improvement.Discussed with patient and patient's son at bedside. Please note the above document was generated using voice recognition software. It may contain grammatical, syntax or spelling errors. Any formal questions or concerns about the content, text or information contained within the body of this dictation should be directly addressed to the provider for clarification Total Time Total Time Spent Total Time Spent (In Minutes): 35 Total Time Includes: Examination of the Patient, Discharge Planning, Medication Reconciliation, Communication With Other Providers and Other Discharge Plan Discharge Items Patient Disposition: Transfer Shelter Fac Reason For Visit: PNA Discharge Diagnosis: #Generalized weakness #Influenza A URTI #Chronic Hypoxic resp failure on 4L at rest/5L with exertion #ILD - follows Dr. 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 #Pneumonia Activity: Resume your previous activity Non-emergency contact: Primary Care Provider Call non-emergency contact if: you have any medication questions and your symptoms worsen Follow-up/Referrals: Yannick Morales MD [Outside Practitioners] - (The office will call you with a follow up appointment ) [facility] - Samuel Chauhan MD [Outside Practitioners] - (Date & Time 12/11/2024 3:20 PM Provider: Samuel Chauhan MD [facility] ) Diet: Regular Fluids: 1500ml (6 cups) Addtl Attending Provider Instructions: You were admitted to the hospital due to flu. You are treated with antiviral medication during the hospitalization. You are prescribed Tamiflu to be taken for 2 more days along with doxycycline 100 mg twice a day. Please stop taking hydrochlorothiazide and losartan. Your blood pressure during the hospitalization was on the lower side. You were also found to have low sodium level. Please decrease your fluid intake to 1500 cc in 24 hours. This includes water, soda, coffee and tea. Protein shakes and nutritional supplement do not count towards that. You will need 6 L of oxygen at rest and exertion. You are also evaluated by pulmonology during the hospitalization. They recommend you to be started on Lasix 20 mg on Monday and Monday. You are also prescribed vitamin B12 supplement to be taken daily for vitamin B12 deficiency. The lower platelet count could be related to that. An appointment with your primary care doctor has been set up. You will need CBC and BMP to be obtained in 10 days to monitor your platelet count and sodium level. Pending Studies at Discharge: No Stand-Alone Forms: My [facility] Skilled Items Patient informed of condition?: Yes DNR: No Discharge Level of Care: Other Communicable Disease: No Discharge Prognosis: Stable Lines: None Urinary Catheter: No Medications and DC Order Prescriptions: New doxycycline hyclate 100 mg Capsule 100 mg PO BID 2 Days Qty: 4 0RF cyanocobalamin (vitamin B-12) 500 mcg Tablet 1,000 mcg PO QAM 30 Days Qty: 60 0RF oseltamivir [Tamiflu] 75 mg Capsule 75 mg PO BID 2 Days Qty: 4 0RF furosemide 20 mg Tablet 20 mg PO MOWEFR 30 Days Qty: 13 0RF Continued metformin 500 mg tablet 1,000 mg PO BID ascorbic acid (vitamin C) [Vitamin C] 1,000 mg Tablet 500 g PO BID acetaminophen [Tylenol] 325 mg Tablet 650 mg PO Q8 PRN (Reason: Pain) albuterol sulfate 2.5 mg /3 mL (0.083 %) Solution For Nebulization 2.5 mg INHALATION Q6H PRN (Reason: Shortness Of Breath Or Wheezing) atorvastatin 10 mg tablet 10 mg PO HS tamsulosin 0.4 mg capsule 0.4 mg PO DAILY azelastine 137 mcg (0.1 %) aerosol,spray 1 spray INTRANASAL AMHS albuterol sulfate 90 mcg/actuation HFA aerosol inhaler 2 puff INHALATION Q6 PRN (Reason: .SOB, COUGH, WHEEZE) fluticasone propionate 50 mcg/actuation spray,suspension 2 spray INTRANASAL DAILY fluticasone propionate [Flovent HFA] 110 mcg/actuation HFA aerosol inhaler 2 puff INHALATION QAM food supplemt, lactose-reduced Liquid 1 ea PO DAILY levocetirizine 5 mg tablet 5 mg PO DAILY Trulicity 0.75 mg/0.5 mL pen injector 0.75 mg SUBCUT .Q TUES Vivex Supplement 2 tab PO QAM Rx Instructions: Liquid gels omeprazole 20 mg Tablet,Delayed Release (Dr/Ec) 20 mg PO DAILY ferrous sulfate 325 mg (65 mg iron) Tablet 325 mg PO BID ipratropium bromide 21 mcg (0.03 %) [place],Non-Aerosol 2 spray INTRANASAL BID PRN (Reason: allergic rhinit) Rx Instructions: administer into each nostril Discontinued hydrochlorothiazide 50 mg tablet 50 mg PO DAILY losartan 100 mg tablet 100 mg PO QAM Discharge Orders: Discharge Order (Routine); Ordered 12/09/24 Ordered By: Jhony West Admission Data Admit Date/Time: 12/05/24 13:20 Attending Provider: Jhony West Admit Provider: Jhony West Primary Care Provider: Bethany Shafer Other Providers: Jhony West; Nadiya Barraza Other Interventions: Discharge Summary Assessment (RN) Last Done: 12/09/24 13:09
[2024-12-09 15:44] VITALS: BP 96/64; RESP 18
[2024-12-09] MEDS: FUROSEMIDE 20 MG TAB PO SCH (15:44)
[2024-12-09 16:07] VITALS: PULSE 88; O2SAT 99
[2024-12-10 09:53] LABS: Estimated Average Glucose 131 mg/dl; Hemoglobin A1C 6.2 % (4.5-5.6)
== END 2024-12-09 18:33 | DRG 193 ==
LOC: ED 11:28 → SUATTDRO 13:20 → 2W 13:20